=== PATIENT | female | born 1970 | race Caucasian/White ===

== ENCOUNTER → 2017-06-28 13:17 | Outpatient (CLI) | payer OTHER, SELFPAY ==
--- NOTE | 2017-06-28 13:24 | HPBD_ITS ---
STUDY: DUAL ENERGY X-RAY ABSORPTIOMETRY / DXA REASON FOR EXAM: Female, 46 years old. Early menopause. No loss of height. TECHNIQUE: Bone Mineral Density (BMD) measurements of lumbar spine and bilateral hips were obtained. COMPARISON: Comparison is made with prior study dated March 26, 2012. FINDINGS: Lumbar Spine (L1-L4): g/cm2 (0.977) / T-score (-1.7) / Z-score (-1.6) Findings are suggestive of osteopenia with a moderate fracture risk. Left Femur Total: g/cm2 (0.695) / T-score (-2.5) / Z-score (-2.2) Left Femoral Neck: g/cm2 (0.688) / T-score (-2.5) / Z-score (-1.9) Right Femur Total: g/cm2 (0.697) / T-score (-2.5) / Z-score (-2.1) Right Femoral Neck: g/cm2 (0.700) / T-score (-2.4) / Z-score (-1.8) The T-Scores on the most recent prior examination were: Lumbar Spine (L1-L4): There has been worsening of bone density since the previous examination. Left Femur Total: which represents an improvement of 2.5%. Right Femur Total: which represents an improvement of 6.7%. HPBD/Dexa Bone Density Study (HP) IMPRESSION: The patient is considered osteopenic as outlined below according to World Esteban Organization (WHO) criteria with a high fracture risk. There has been improvement of bone density since the previous examination. Reference Information: The T-score is the number of standard deviations above or below the standard which is normal for young adults at their peak bone mineral density. The World Health Organization (WHO) interprets the T-scores as follows: Above -1 Normal bone density Between -1 and -2.5 Osteopenia Equal to / or below -2.5 Osteoporosis As a practical clinical guideline, osteopenia may be graded as follows: Mild -1 through -1.5 Moderate -1.6 through -2.0 Severe -2.1 through -2.4 The Z-score is the number of standard deviations above or below age-matched controls. A Z-score of less than -1.5 would be considered abnormal. References: 1. NIH Osteoporosis and Related Bone Diseases http://www.osteo.org 2. International Society for Clinical Densitometry http://www.iscd.org 3. National Osteoporosis Foundation http://www.nof.org Electronically Signed: Leroy Aj MD at 10:50 EDT Tel [phone], Service support ,
== END ==
PROVIDERS: Visit Provider Internal Medicine
DX: M81.0 Age-related osteoporosis without current pathological fracture (principal)
CPT/HCPCS: 77080

== ENCOUNTER → 2017-11-12 10:15 | Outpatient (CLI) | payer OTHER, SELFPAY ==
[2017-11-12 12:33] LABS: Microalbumin,Random Urine 5.6 mg/L (NO RANGE EST.)
[2017-11-12 12:40] LABS: Absolute Lymphocyte Count 1.67 X10^3/ul (0.83-4.51); Absolute Neutrophil Count 1.6 X10^3/uL (2.0-7.7); Basophil# 0.03 X10^3/uL; Basophil% 0.7 % (0-1); Eosinophil# 0.15 X10^3/uL; Eosinophils% 3.7 % (0-5); Hematocrit 39.2 % (37-47); Lymphocyte # 1.67 X10^3/ul (4.0); Lymphocyte % 40.8 % (19-41); Mean Corp Hgb Conc 33.2 g/gl (32-36); Mean Corpuscular Volume 90.3 fL (81-99); Mean Platelet Vol. 11.2 fl (6.2-12.0); Monocyte# 0.59 X10^3/uL; Monocyte% 14.4 % (0-10); Neutrophil # 1.64 X10^3/uL (2.7-7.7); Neutrophil % 40.2 % (47-70); Platelet Count 286 K/mm3 (150-450); RBC Distribution Width CV 13.2 % (11.6-14.6); RBC Distribution Width SD 43.5 fl (35.1-43.9); Red Blood Count 4.34 M/mm3 (4.2-5.4); White Blood Count 4.1 K/mm3 (4.4-11.0)
[2017-11-12 12:52] LABS: POSITIVE COUNT NO; POSITIVE DIFFERENTIAL NO; POSITIVE MORPHOLOGY NO
[2017-11-12 12:58] LABS: Hemoglobin A1c 5.4 % (4.2-6.3)
[2017-11-12 13:28] LABS: BUN 9 mg/dL (7-18); Creatinine, Serum 0.71 mg/dL (0.55-1.02); Glucose 94 mg/dL (74-106)
[2017-11-12 13:29] LABS: AST(SGOT) 17 U/L (15-37); Alanine Aminotransfer ALT/SGPT 23 U/L (13-56); Albumin, Serum 3.6 g/dL (3.2-5.0); Alkaline Phosphatase 106 U/L (45-117); Anion Gap 9 (5-15); BUN/Creat Ratio 12.6 RATIO (10-20); Calcium,Total 8.8 mg/dL (8.5-10.1); Chloride 105 mmol/L (98-107); Cholesterol 230 mg/dL (200); EST Glomerular Filtration Rate 94 mL/min (>60); Est Glom Filt Rate - Afr Amer 114 mL/min (>60); Globulin 3.6 g/dL (2.2-4.2); High Density Lipoprotein 85 mg/dL; Potassium 4.1 mmol/L (3.5-5.1); Protein, Total 7.2 g/dL (6.4-8.2); Sodium Level 142 mmol/L (136-145); Thyroid Stim Hormone (TSH) 0.89 uIU/mL (0.358-3.74); Triglycerides 100 mg/dL; Very Low Density Lipoprotein 20 mg/dL (5-40)
[2017-11-14 09:43] LABS: Lipoprotein A <10 nmol/L (<75)
== END ==
PROVIDERS: Family Provider Internal Medicine; PCP Internal Medicine; Visit Provider Internal Medicine
DX: E78.4 Other hyperlipidemia (principal); R73.01 Impaired fasting glucose
CPT/HCPCS: 36415; 80053; 80061; 82043; 82570; 83036; 83695; 84443; 85025

== ENCOUNTER 2018-02-22 08:06 | Inpatient (IN) | payer OTHER, SELFPAY ==
[2018-02-22] VITALS (13 sets, daily range): BP systolic 98–138; BP diastolic 53–81; PULSE 60–106; RESP 12–19; TEMP 36.2–36.7; O2SAT 95–99; BMI 28.9; BMI 28.3
--- NOTE | 2018-02-22 08:24 | RAD_ITS ---
STUDY: X-RAY CHEST REASON FOR EXAM: Female, 47 years old. Left-sided chest pain. TECHNIQUE: PA and lateral views of the chest. COMPARISON: None. FINDINGS: EKG electrodes are seen. The lungs are clear and expanded. There is no demonstrated pleural abnormality. Normal size heart. Normal mediastinum and mary grace. Normal visualized pulmonary arteries. Normal visualized aortic arch and descending thoracic aorta. Normal visualized thoracic spine. Normal visualized ribs, clavicles, and shoulders. There is no demonstrated abnormality of the visualized soft tissue structures of the upper abdomen. RAD/Chest PA and Lateral IMPRESSION: Normal x-ray examination of the chest. Electronically Signed: Leroy Aj MD at 9:14 EST Tel [phone], Service support ,
[2018-02-22 08:54] LABS: Erythrocyte Sedimentation Rate 10 mm/hr (0-20)
[2018-02-22 09:02] LABS: Absolute Lymphocyte Count 1.94 X10^3/ul (0.83-4.51); Absolute Neutrophil Count 2.7 X10^3/uL (2.0-7.7); Basophil# 0.06 X10^3/uL; Basophil% 1.1 % (0-1); Eosinophils% 1.9 % (0-5); Hematocrit 43.7 % (37-47); Hemoglobin 14.7 g/dl (12.0-15.0); Lymphocyte # 1.94 X10^3/ul (4.0); Lymphocyte % 36.5 % (19-41); Mean Corp Hgb Conc 33.6 g/gl (32-36); Mean Corpuscular Hgb 30.1 pg (27.0-32.0); Mean Corpuscular Volume 89.5 fL (81-99); Mean Platelet Vol. 11.4 fl (6.2-12.0); Monocyte# 0.49 X10^3/uL; Monocyte% 9.2 % (0-10); Neutrophil # 2.71 X10^3/uL (2.7-7.7); Neutrophil % 51.1 % (47-70); POSITIVE COUNT NO; POSITIVE DIFFERENTIAL NO; POSITIVE MORPHOLOGY NO; Platelet Count 308 K/mm3 (150-450); RBC Distribution Width CV 12.8 % (11.6-14.6); RBC Distribution Width SD 41.6 fl (35.1-43.9); Red Blood Count 4.88 M/mm3 (4.2-5.4); White Blood Count 5.3 K/mm3 (4.4-11.0)
--- NOTE | 2018-02-22 09:23 | ECHOD_ITS ---
Reason For Study: Chest pain Procedure This was a 2D Doppler, Color Flow transthoracic echocardiogram. The study was technically difficult. Pt. scanned sitting up due to chest pain. Exam performed portable in ED. Left Ventricle Normal LV size. Left ventricular systolic function is normal. The estimated ejection fraction is 65 %. Normal diastology for age. No regional wall motion abnormalities noted. Right Ventricle Normal RV size. Normal systolic function. Atria Normal left atrium. Normal right atrium. No doppler evidence for ASD. Mitral Valve There is no mitral annular calcification. Normal mitral valve. Tricuspid Valve Normal tricuspid valve. Trivial tricuspid valve insufficiency. Unable to estimate RV systolic pressure/pulmonary artery pressure due to technically difficult study. Aortic Valve The aortic valve is not well visualized. Pulmonic Valve The pulmonic valve is not well visualized. Great Vessels Normal sized aortic root. Pericardium/Pleural No pericardial effusion. MMode/2D Measurements & Calculations LVIDd: 3.8 cm IVSd: 0.72 cm Ao root diam: 2.9 cm LVIDs: 2.3 cm LVPWd: 0.79 cm FS: 38.9 % LAV(MOD-bp): 18.0 ml LA A4 area: 10.0 cm2 LA dimension(2D): 1.9 cm LAV(MOD-bp) Indexed: 10.4 ml/m2 LAV(MOD-sp2): 16.0 ml LAV(MOD-sp4): 19.8 ml RA A4 area: 9.3 cm2 Doppler Measurements & Calculations MV E max luke: 81.5 cm/sec Lat Peak E' Luke: 9.8 cm/sec Med Peak E' Luke: 10.7 cm/sec MV A max luke: 55.1 cm/sec E/E' lat: 8.3 E/E' med: 7.6 MV E/A: 1.5 Ao V2 max: 133.7 cm/sec LV V1 max: 116.6 cm/sec PA V2 max: 95.3 cm/sec Ao max P.2 mmHg LV V1 max P.4 mmHg Interpretation Summary The study was technically difficult. Left ventricular systolic function is normal. The estimated ejection fraction is 65 %. Trivial tricuspid valve insufficiency. Unable to estimate RV systolic pressure/pulmonary artery pressure due to technically difficult study. Normal diastology for age. Ordering Physician: Garett Anderson Performed By: Virginia Galeano RDCS
--- NOTE | 2018-02-22 11:01 | ED.RN ---
Dr. Lomas at bedside.
--- NOTE | 2018-02-22 12:20 | HP.PCM_ITS ---
Problem List (1) Chest pain Status: Acute History of Present Illness Date of Admission: 02/22/18 Chief Complaint: chest pain The patient is a 47 year old F with a history of endometriosis s/p hysterectomy. SHe was admitted through the ED on 02/22/18 with a complaint of chest pain, which was rated ~ 6/10, sharp, retrosternal, aggravated by lying down and relieved by sitting up. She had associated pleuritic chest pain, but denied any SOB, fever, chills, palpitations, abdominal pain, diarrhea or vomiting. Review of systems was otherwise negative. She contracted the flu ~ 3 weeks ago which has since resolved. She currently doesnt have any URTI symptoms.IN the Ed, her vitals were stable. Initial troponin was neative, and CXR showed no acute cardiopulmonary process. EKG showed NSR with possible left atrial enlargement and nonspecifit T wave changes. She had a stat echocardiogram done in Ed which showed no evidence of pericardial fluid. She is being admitted to be managed for pericarditis. [] Past Medical History Allergies meperidine [From Demerol] Allergy (Verified 02/22/18 08:06) Vomiting Home Medications: Ambulatory Orders Medication Instructions Recorded cholecalciferol (vitamin D3) 1,000 1,000 unit PO DAILY 02/04/18 unit capsule estradiol 4 mcg vaginal insert 0.5 mcg TRANSDERM. 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 Lives: With Family Smoking Status: Never smoker Alcohol: Occasional - *Family History Maternal Family History: Family History (Last Updated 02/04/18 @ 14:00 by Sylvia Yen) Other Diabetes Hypertension Leukemia History Items: Diabetes, Heart Disease, Hypertension Paternal Family History: Family History (Last Updated 02/04/18 @ 14:00 by Sylvia Yen) Other Diabetes Hypertension Leukemia History Items: Diabetes, Heart Disease, Hypertension Review of Systems Constitutional: Denies: Chills, Fever, Malaise, Weakness, Weight Change Eyes: Denies: Blurred vision HEENT: Denies: Head Aches, Sinus Congestion, Sinus Drainage Cardiovascular: Reports: Chest Pain. Denies: Chest Pressure, Chest Tightness, Edema, Heaviness, Orthopnea, Palpitations, Paroxysmal Noc. Dyspnea, Syncope Respiratory: Reports: Pleuritic Pain. Denies: Cough, Hemoptysis, Shortness of Breath, Shortness of breath upon exertion, Sputum production, Wheezing Gastrointestinal: Denies: Abdominal Pain, Nausea, Vomiting Genitourinary: Denies: Dysuria Musculoskeletal: Denies: Joint Pain, Joint Tenderness Skin: Denies: Rash, Wounds Neurological: Denies: Numbness, Tingling, Focal weakness Psychiatric: Denies: Anxiety, Depression, Homicidal Ideations, Suicidal Ideations Hematologic/ Lymphatic: Denies: Easy Bruising, Easy Bleeding VTE Information - Inpt Only VTE Present on Admission: No VTE Pharm Prophylaxis ordered?: Yes - Physical Exam General: Alert, Oriented x3, Cooperative, - - looks uncomfortable HEENT: Atraumatic, PERRLA, EOMI, Normocephalic Oral: Moist Mucosa Neck: Supple, No JVD, Negative Carotid Bruits Lungs: Clear to auscultation, Normal air movement, No rhonchi, No wheeze, No rales Cardiovascular: Regular rate, Regular Rhythm, Normal S1, Normal S2, No murmurs Abdomen: Bowel Sounds Present, Soft, Non Tender Extremities: No clubbing, No cyanosis, No edema, Capillary Refill Less than 3 Seconds Skin: No rashes, No breakdown Musculoskeletal: No Tenderness to Palpation of Joints or Extremities Lymphatic: No Cervical, Supraclavicular, or Inguinal Adenopathy Neurological: Cranial nerves II-XII grossly intact Psych/Mental Status: Normal Affect, Appropriate, Alert and oriented to time, place, person, mood and affect Vital Signs Temp Pulse Resp BP Pulse Ox 97.1 F L 72 19 H 104/61 97 02/22/18 08:07 02/22/18 10:06 02/22/18 10:06 02/22/18 10:06 02/22/18 10:06 Oxygen Delivery Method Room Air Weight: 158 lb 4.67 oz Body Mass Index (BMI) 28.9 Laboratory Tests Past 24 Hrs 02/22/18 02/22/18 08:35 08:35 WBC 5.3 RBC 4.88 Hgb 14.7 Hct 43.7 MCV 89.5 MCH 30.1 MCHC 33.6 RDW 12.8 RDW Differential 41.6 Plt Count 308 MPV 11.4 Immature Gran % (Auto) 0.200 Neut % (Auto) 51.1 Lymph % (Auto) 36.5 [place] % (Auto) 9.2 Eos % (Auto) 1.9 Baso % (Auto) 1.1 H Absolute Neuts (auto) 2.7 Absolute Lymphs (auto) 1.94 Total Counted Not Reportable ESR 10 Troponin I < 0.015 Diagnostic Data Chest X-Ray 02/22/18 08:24 IMPRESSION: Normal x-ray examination of the chest. Electronically Signed: Leroy Aj MD at 9:14 EST Tel [phone], Service support , Assessment/Plan All Active Problems (Last Reviewed 02/04/18 @ 14:00 by Sylvia Yen) Chest pain (Acute) Influenza A (Acute) 47 y/o female admitted with a complaint of chest pain after she had a recent flu infection 1. Acute pericarditis due to influenza infection * chest pain rated 6-10, sharp, retrosternal, aggravated by lying down and taking deep breaths. relieved by sitting up * EKG not very classic of pericarditis, with no diffuse ST segment elevation * however, clinical picture is classic for pericarditis * admit to PCU with telemetry * 2D echo: Left ventricular systolic function is normal. The estimated ejection fraction is 65 %.Trivial tricuspid valve insufficiency. Unable to estimate RV systolic pressure/pulmonary artery pressure due to technically difficult study. Normal diastology for age. * initial troponin negative; will cycle * start high dose ibuprofen * 2. Endometriosis s/p hysterectomy * on estrogen patch. * 3. Vitamin D deficiency: on oral vitamin D supplementation DVT prophylaxis: heparin GI prophylaxis: famotidine. Code Visit Inpatient E&M: 90549 Init Hosp L3
--- NOTE | 2018-02-22 12:21 | ED.DCSUM_ITS ---
- ER Visit Summary Date of Service: 02/22/18 Chief Complaint: Left-sided chest pain that is positional and pleuritic. History of Present Illness: The patient is a 47 F who was diagnosed with influenza a February 04. She presents with chest pain that has a pleuritic and positional component since Sunday. She reports improvement leaning forward and significant pain lying flat on her back. She denies fever, chills or night sweats. She denies orthopnea or PND. She does complain of mild shortness of b reath and mild dyspnea with exertion. She denies ocular, visual or auditory symptoms. She denies trouble with speech or swallowing. She denies cough or sputum production. She denies nausea, vomiting or diarrhea. She denies dysuria, frequency, urgency or hematuria. She denies leg pain, swelling or discoloration. She denies history of PE or DVT. Please read written note for complete detail Physical Examination: Vital signs noted. She appears uncomfortable. Head is atraumatic normocephalic. Pupils are equal round reactive. Extraocular muscles are intact. TMs are pearly white with landmarks noted. Nares patent with no drainage. Posterior pharynx without erythema or exudate. Uvula is midline. There is no dysphonia or dysphasia. Trachea is midline. There is no stridor with auscultation of the neck. Heart is regular without murmur, gallop or rub. S1 and S2 are normal. Lungs are clear to auscultation with good movement of air bilaterally. Abdomen soft nontender. There is no asymmetry, swelling, discoloration, leg vein distention, palpable cords or tenderness along the distribution of the deep venous system. Neuro exam is nonfocal. Test Results: EKG sinus rhythm rate of [address]-T wave changes and unchanged compared to EKG from 9 years ago. DC interval normal. QRS duration normal. QT interval is prolonged. [place] is normal. CBC unremarkable. Troponin normal. ESR 10. Transthoracic echo was obtained and revealed no effusion. Left ejection fraction normal. Emergency Department Course and Treatment: Workup for pericarditis, pneumonia, myocarditis. Consulted Dr. Lomas. Dr. Lomas requested admission for pain management. He requested 30 Rust grams Toradol in the emergency department and for the hospital to start indomethacin and colchicine on the unit. Treatment Plan: Anti-inflammatory and colchicine Disposition: Medical surge unit telemetry Impression: Acute pericarditis Recent diagnosis of influenza A This note was generated with [employer] dictation software. It may contain incorrect words, spelling, and punctuation that were not noted in review of the chart prior to signing ED Disposition - Plan for ED Patient: Chief Complaint: Chest Other Referrals: Renu Mejia DO [Primary Care Provider] -
[2018-02-22] MEDS: Ketorolac 30 MG/ML Syringe IV (13:00)
--- NOTE | 2018-02-22 13:29 | EKG12_ITS ---
Test Reason : CP Blood Pressure : / mmHG Vent. Rate : 065 BPM Atrial Rate : 065 BPM P-R Int : 114 ms QRS Dur : 092 ms QT Int : 424 ms P-R-T Axes : 062 070 045 degrees QTc Int : 440 ms Normal sinus rhythm Nonspecific ST abnormality Abnormal ECG When compared with ECG of 11-JAN-2009 10:47, No significant change was found Confirmed by ANTONIO KERR, JUDIT ([id number]), film editor OZZIE HESS ([id number]) on 02/27/2018 11:35:22 AM Referred By: ARNOL Confirmed By:JUDIT ALVAREZ MD
[2018-02-22] MEDS: Ibuprofen 600 MG Tablet PO ×2 (13:59→22:01)
[2018-02-22] MEDS: Famotidine 20 MG Tablet PO ×2 (13:59→22:02)
--- NOTE | 2018-02-22 20:59 | PCM.CONS.C ---
Problem List (1) Acute pericarditis Status: Acute (2) Influenza A Status: Resolved Reason for Consult Date of Consultation: 02/22/18 History of Present Illness: The patient is a 47 year [id number] white female with no past cardiovascular history who was recently diagnosed with influenza A virus, which she states she has recovered from other than a residual cough, who now presents with the onset of chest discomfort. She states that she recently noted the onset of chest discomfort. It waxed and waned. However it progressed to the point, despite her one-time use of nonsteroidal anti-inflammatory therapy with ibuprofen, where she could not lie down comfortably and had to sit up and lean forward to gain symptomatic improvement. She also noted it was worse with cough and/or deep inspiration. She did not necessarily have associated fever, chills, nausea, emesis, or diaphoresis. There was no report of orthopnea, PND, peripheral pitting edema, near syncope or syncope. She presented to the [facility] ED for evaluation. Her evaluation included cardiac enzymes which were negative. An ECG demonstrated sinus rhythm with subtle nonspecific ST segment abnormality. A chest x-ray demonstrated no acute cardiopulmonary disease process. An ESR level was reported as negative. She had a transthoracic echocardiogram performed in the [facility] emergency department. Her left ventricle was thought to be normal with an LVEF of 65% with trivial TR. A pericardial effusion was not appreciated. She was subsequently given the diagnosis of acute pericarditis. She was treated with IV Toradol 30 mg x1. She was subsequently given additional nonsteroidal anti-inflammatory therapy, PPI therapy, and initiated on colchicine therapy. At the present time she states she is somewhat symptomatically improved. She feels that she can rest somewhat more comfortably but still not be totally comfortable in a supine position. A follow-up ECG was obtained. She remained in sinus rhythm. Her previous subtle ST segment abnormality appeared to be a less prominent. [] Past Medical History Allergies/Adverse Reactions: Allergies meperidine [From Demerol] Adverse Reaction (Verified 02/22/18 13:20) Vomiting Home Medications: Ambulatory Orders Medication Instructions Recorded cholecalciferol (vitamin D3) 1,000 1,000 unit PO DAILY 02/04/18 unit capsule estradiol 4 mcg vaginal insert 0.5 mcg TRANSDERM. 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 - *Family History Maternal Family History: Family History (Last Updated 02/04/18 @ 14:00 by Sylvia Yen) Other Diabetes Hypertension Leukemia History Items: Diabetes, Heart Disease, Hypertension Paternal Family History: Family History (Last Updated 02/04/18 @ 14:00 by Sylvia Yen) Other Diabetes Hypertension Leukemia History Items: Diabetes, Heart Disease, Hypertension Lives: With Family Smoking Status: Never smoker Alcohol: Occasional Drugs: None Review of Systems - Review of Systems General: Denies: Fever, Night Sweats, Fatigue Cardiovascular: Reports: Chest Discomfort, Chest Discomfort at Rest. Denies: Shortness of Breath, Orthopnea, PND, Peripheral Edema, Palpitations, Lightheadedness, Dizziness, Near Syncope, Syncope Respiratory: Reports: Cough, Pleurtic Chest Pain. Denies: Sputum Production, Hemoptysis Gastrointestinal: Denies: Hematemesis, Hematochezia, Melena Genitourinary: Denies: Dysuria, Hematuria Skin: Denies: Rash Subjectve: Is a 47-year-old white female who appeared to be uncomfortable, sitting up, leaning forward, to gain symptomatic improvement. Objective: Vital Signs Temp Pulse Resp BP Pulse Ox 98.1 F 73 16 126/81 H 97 02/22/18 17:38 02/22/18 19:02 02/22/18 17:38 02/22/18 17:38 02/22/18 17:38 Oxygen Delivery Method Room Air Weight: 154 lb 8.705 oz Body Mass Index (BMI) 28.3 Intake and Output for Last 24 Hours 02/20/18 02/21/18 02/22/18 23:59 23:59 23:59 Intake Total 240 / 240 Balance 240 / 240 General: Awake, Alert, Oriented x 3, Cooperative, No Acute Distress HEENT: Atraumatic, Normocephalic, Sclera Non Icteric Oral: Moist Mucosa Neck: Supple, Good ROM, No JVD Lungs: Clear to auscultation Cardiovascular: Regular Rhythm, Normal S1, Normal S2 Vascular: No Carotid Bruits Abdomen: Bowel Sounds Present, Soft, Non Tender Extremities: No Cyanosis, No Clubbing, No edema Neurological: No Focal Motor or Sensory Deficit Psych/Mental Status: Appropriate, Normal Affect 02/22/18 08:35: WBC 5.3, RBC 4.88, Hgb 14.7, Hct 43.7, MCV 89.5, MCH 30.1, MCHC 33.6, RDW 12.8, RDW Differential 41.6, Plt Count 308, MPV 11.4, Immature Gran % (Auto) 0.200, Neut % (Auto) 51.1, Lymph % (Auto) 36.5, [place] % (Auto) 9.2, Eos % (Auto) 1.9, Baso % (Auto) 1.1 H, Absolute Neuts (auto) 2.7, Total Counted Not Reportable 02/22/18 08:35: Troponin I < 0.015 02/22/18 13:35: Troponin I < 0.015 02/22/18 15:55: Troponin I < 0.015 Rhythm: Sinus rhythm EKG: As noted above ECHO: As noted above CXR: As noted above Assessment/Plan 1. Acute pericarditis The patient presents with a history compatible with acute pericarditis. Her examination did not demonstrate, at this point in time, a pericardial friction rub. Her ECG demonstrated subtle nonspecific ST segment abnormality. Her echocardiogram demonstrated no obvious pericardial effusion. She is now been treated with IV corticosteroids. She has had some improvement in her symptoms allowing her to rest somewhat more comfortably. She is continuing with oral corticosteroids at this time as well as a PPI agent and colchicine therapy. She will continue to be monitored. Hopefully her oral agents will be effective with respect to providing her symptomatic improvement. If they do and she remains otherwise stable without other obvious acute or adverse events warranting further evaluation and care then hopefully she will be able to be released home, potentially tomorrow, for continued outpatient cardiovascular follow-up. 2. Influenza A She has had influenza A recently. She states she has recuperated from this. However this could be the precursor for her acute pericarditis. Comment: The patient's case has been discussed and reviewed with the patient and Dr. Anderson the [facility] emergency department staff. The [facility] hospitalist staff assistance in the patient's evaluation and care as most appreciated. This note was generated with [employer] software. It may contain incorrect words, spelling, and punctuation that were not noted in checking the note before signing.
--- NOTE | 2018-02-22 21:04 | CON.PCM_ITS ---
Problem List (1) Acute pericarditis Status: Acute (2) Influenza A Status: Resolved Reason for Consult Date of Consultation: 02/22/18 History of Present Illness: The patient is a 47 year [id number] white female with no past cardiovascular history who was recently diagnosed with influenza A virus, which she states she has recovered from other than a residual cough, who now presents with the onset of chest discomfort. She states that she recently noted the onset of chest discomfort. It waxed and waned. However it progressed to the point, despite her one-time use of nonsteroidal anti-inflammatory therapy with ibuprofen, where she could not lie down comfortably and had to sit up and lean forward to gain symptomatic improvement. She also noted it was worse with cough and/or deep inspiration. She did not necessarily have associated fever, chills, nausea, emesis, or diaphoresis. There was no report of orthopnea, PND, peripheral pitting edema, near syncope or syncope. She presented to the [facility] ED for evaluation. Her evaluation included cardiac enzymes which were negative. An ECG demonstrated sinus rhythm with subtle nonspecific ST segment abnormality. A chest x-ray dem onstrated no acute cardiopulmonary disease process. An ESR level was reported as negative. She had a transthoracic echocardiogram performed in the [facility] emergency department. Her left ventricle was thought to be normal with an LVEF of 65% with trivial TR. A pericardial effusion was not appreciated. She was subsequently given the diagnosis of acute pericarditis. She was treated with IV Toradol 30 mg x1. She was subsequently given additional nonsteroidal anti-inflammatory therapy, PPI therapy, and initiated on colchicine therapy. At the present time she states she is somewhat symptomatically improved. She feels that she can rest somewhat more comfortably but still not be totally comfortable in a supine position. A follow-up ECG was obtained. She remained in sinus rhythm. Her previous subtle ST segment abnormality appeared to be a less prominent. [] Past Medical History Allergies/Adverse Reactions: Allergies meperidine [From Demerol] Adverse Reaction (Verified 02/22/18 13:20) Vomiting Home Medications: Ambulatory Orders Medication Instructions Recorded cholecalciferol (vitamin D3) 1,000 1,000 unit PO DAILY 02/04/18 unit capsule estradiol 4 mcg vaginal insert 0.5 mcg TRANSDERM. QWEEK 02/04/18 [employer] History: endometriosis - *Family History Maternal Family History: Family History (Last Updated 10/22/18 @ 14:00 by Sylvia Yen) Other Diabetes Hypertension Leukemia History Items: Diabetes, Heart Disease, Hypertension Paternal Family History: Family History (Last Updated 02/04/18 @ 14:00 by Sylvia Yen) Other Diabetes Hypertension Leukemia History Items: Diabetes, Heart Disease, Hypertension Lives: With Family Smoking Status: Never smoker Alcohol: Occasional Drugs: None Review of Systems - Review of Systems General: Denies: Fever, Night Sweats, Fatigue Cardiovascular: Reports: Chest Discomfort, Chest Discomfort at Rest. Denies: Shortness of Breath, Orthopnea, PND, Peripheral Edema, Palpitations, Lightheadedness, Dizziness, Near Syncope, Syncope Respiratory: Reports: Cough, Pleurtic Chest Pain. Denies: Sputum Production, Hemoptysis Gastrointestinal: Denies: Hematemesis, Hematochezia, Melena Genitourinary: Denies: Dysuria, Hematuria Skin: Denies: Rash Subjectve: Is a 47-year-old white female who appeared to be uncomfortable, sitting up, leaning forward, to gain symptomatic improvement. Objective: Vital Signs Temp Pulse Resp BP Pulse Ox 98.1 F 73 16 126/81 H 97 02/22/18 17:38 02/22/18 19:02 02/22/18 17:38 02/22/18 17:38 02/22/18 17:38 Oxygen Delivery Method Room Air Weight: 154 lb 8.705 oz Body Mass Index (BMI) 28.3 Intake and Output for Last 24 Hours 02/20/18 02/21/18 02/22/18 23:59 23:59 23:59 Intake Total 240 / 240 Balance 240 / 240 General: Awake, Alert, Oriented x 3, Cooperative, No Acute Distress HEENT: Atraumatic, Normocephalic, Sclera Non Icteric Oral: Moist Mucosa Neck: Supple, Good ROM, No JVD Lungs: Clear to auscultation Cardiovascular: Regular Rhythm, Normal S1, Normal S2 Vascular: No Carotid Bruits Abdomen: Bowel Sounds Present, Soft, Non Tender Extremities: No Cyanosis, No Clubbing, No edema Neurological: No Focal Motor or Sensory Deficit Psych/Mental Status: Appropriate, Normal Affect 02/22/18 08:35: WBC 5.3, RBC 4.88, Hgb 14.7, Hct 43.7, MCV 89.5, MCH 30.1, MCHC 33.6, RDW 12.8, RDW Differential 41.6, Plt Count 308, MPV 11.4, Immature Gran % (Auto) 0.200, Neut % (Auto) 51.1, Lymph % (Auto) 36.5, [place] % (Auto) 9.2, Eos % (Auto) 1.9, Baso % (Auto) 1.1 H, Absolute Neuts (auto) 2.7, Total Counted Not Reportable 02/22/18 08:35: Troponin I < 0.015 02/22/18 13:35: Troponin I < 0.015 02/22/18 15:55: Troponin I < 0.015 Rhythm: Sinus rhythm EKG: As noted above ECHO: As noted above CXR: As noted above Assessment/Plan 1. Acute pericarditis The patient presents with a history compatible with acute pericarditis. Her examination did not demonstrate, at this point in time, a pericardial friction rub. Her ECG demonstrated subtle nonspecific ST segment abnormality. Her echocardiogram demonstrated no obvious pericardial effusion. She is now been treated with IV corticosteroids. She has had some improvement in her symptoms allowing her to rest somewhat more comfortably. She is continuing with oral corticosteroids at this time as well as a PPI agent and colchicine therapy. She will continue to be monitored. Hopefully her oral agents will be effective with respect to providing her symptomatic improvement. If they do and she remains otherwise stable without other obvious acute or adverse events warranting further evaluation and care then hopefully she will be able to be released home, potentially tomorrow, for continued outpatient cardiovascular follow-up. 2. Influenza A She has had influenza A recently. She states she has recuperated from this. However this could be the precursor for her acute pericarditis. Comment: The patient's case has been discussed and reviewed with the patient and Dr. Anderson the [facility] emergency department staff. The [facility] hospitalist staff assistance in the patient's evaluation and care as most appreciated. This note was generated with CMGEation software. It may contain incorrect words, spelling, and punctuation that were not noted in checking the note before signing.
[2018-02-23] VITALS (7 sets, daily range): BP systolic 100–108; BP diastolic 51–53; PULSE 64–84; RESP 16; TEMP 36.6; O2SAT 95–97
[2018-02-23] MEDS: Ibuprofen 600 MG Tablet PO (05:34)
--- NOTE | 2018-02-23 06:00 | EKG12_ITS ---
Test Reason : AM EKG Blood Pressure : / mmHG Vent. Rate : 062 BPM Atrial Rate : 062 BPM P-R Int : 124 ms QRS Dur : 088 ms QT Int : 422 ms P-R-T Axes : 063 073 050 degrees QTc Int : 428 ms Normal sinus rhythm Normal ECG When compared with ECG of 22-FEB-2018 13:21, MANUAL COMPARISON REQUIRED, DATA IS UNCONFIRMED Confirmed by ANTONIO KERR, JUDIT ([id number]), editor farm journal OZZIE HESS ([id number]) on 02/27/2018 11:33:52 AM Referred By: BOYD Confirmed By:JUDIT ALVAREZ MD
[2018-02-23 06:50] LABS: Absolute Lymphocyte Count 2.07 X10^3/ul (0.83-4.51); Basophil# 0.07 X10^3/uL; Basophil% 1.4 % (0-1); Eosinophil# 0.17 X10^3/uL; Eosinophils% 3.4 % (0-5); Hematocrit 39.4 % (37-47); Hemoglobin 12.9 g/dl (12.0-15.0); Lymphocyte # 2.07 X10^3/ul (4.0); Lymphocyte % 41.8 % (19-41); Mean Corp Hgb Conc 32.7 g/gl (32-36); Mean Corpuscular Hgb 29.5 pg (27.0-32.0); Mean Platelet Vol. 11.4 fl (6.2-12.0); Monocyte# 0.62 X10^3/uL; Monocyte% 12.5 % (0-10); Neutrophil # 2.01 X10^3/uL (2.7-7.7); Neutrophil % 40.7 % (47-70); Platelet Count 260 K/mm3 (150-450); RBC Distribution Width CV 12.7 % (11.6-14.6); RBC Distribution Width SD 41.4 fl (35.1-43.9); Red Blood Count 4.38 M/mm3 (4.2-5.4)
[2018-02-23 06:57] LABS: POSITIVE COUNT NO; POSITIVE DIFFERENTIAL NO; POSITIVE MORPHOLOGY NO
[2018-02-23 07:17] LABS: Anion Gap 7 (5-15); BUN 11 mg/dL (7-18); BUN/Creat Ratio 15.8 RATIO (10-20); Calcium,Total 8.2 mg/dL (8.5-10.1); Chloride 108 mmol/L (98-107); EST Glomerular Filtration Rate 96 mL/min (>60); Est Glom Filt Rate - Afr Amer 116 mL/min (>60); Estimated Creatinine Clearance 79.42 ml/min; Glucose 91 mg/dL (74-106); Potassium 3.9 mmol/L (3.5-5.1); Sodium Level 141 mmol/L (136-145)
[2018-02-23] MEDS: Famotidine 20 MG Tablet PO (09:35)
--- NOTE | 2018-02-23 10:20 | PCM.PN.CARD ---
Subjectve: Patient seen and examined. Telemetry showed normal sinus rhythm. Patient still has some pleuritic type chest pain with deep inspiration however she reports it is markedly improved with NSAID therapy. No significant diarrhea overnight. Tolerating NSAID and colchicine well. Cardial rub or pleural rub noted. No history of lupus or connective tissue disease or autoimmune diseases in the patient's family to her knowledge. Objective: Vital Signs Temp Pulse Resp BP Pulse Ox 97.8 F 73 16 100/53 L 97 02/23/18 09:33 02/23/18 09:33 02/23/18 09:33 02/23/18 09:33 02/23/18 09:33 Oxygen Delivery Method Room Air Weight: 154 lb 8.705 oz Body Mass Index (BMI) 28.3 Intake and Output for Last 24 Hours 02/21/18 02/22/18 02/23/18 23:59 23:59 23:59 Intake Total 240 / 240 560 / 560 Balance 240 / 240 560 / 560 General: Awake, Alert, Oriented x 3 HEENT: PERRL, EOMI, Sclera Non Icteric Neck: Supple, Good ROM, No Lymph Node Enlargement Lungs: Clear to auscultation Cardiovascular: Regular Rhythm, Normal S1, Normal S2, No Murmurs, No Rubs, No Gallops Vascular: No Carotid Bruits, Normal Femoral Pulses, Normal Radial Pulses, Normal Dorsalis Pedal Pulse, Normal Posterior Tibial Pulses Abdomen: Bowel Sounds Present, Soft, Non Tender, No HSM, No Organomegaly Extremities: No Cyanosis, No Clubbing, No edema Neurological: No Focal Motor or Sensory Deficit 02/22/18 13:35: Troponin I < 0.015 02/22/18 15:55: Troponin I < 0.015 02/23/18 06:12: WBC 5.0, RBC 4.38, Hgb 12.9, Hct 39.4, MCV 90.0, MCH 29.5, MCHC 32.7, RDW 12.7, RDW Differential 41.4, Plt Count 260, MPV 11.4, Immature Gran % (Auto) 0.200, Neut % (Auto) 40.7 L, Lymph % (Auto) 41.8 H, [place] % (Auto) 12.5 H, Eos % (Auto) 3.4, Baso % (Auto) 1.4 H, Absolute Neuts (auto) 2.0, Total Counted Not Reportable 02/23/18 06:12: Sodium 141, Potassium 3.9, Chloride 108 H, Carbon Dioxide 26.0, Anion Gap 7, BUN 11, Creatinine 0.70, Est GFR (MDRD) Af Amer 116, Est GFR (MDRD) Non-Af 96, BUN/Creatinine Ratio 15.8, Glucose 91, Calcium 8.2 L Rhythm: EKG: ECHO: Stress Test: Cardiac Cath: PCI: CT Surgery: Holter monitor: EPS: PPM: CXR: Chest CT Scan: Medical Necessity - Tobacco Use Smoking Status: Never smoker Assessment/Plan 1. Acute pericarditis: The patient has never had an episode of pericarditis before, and has no knowledge of autoimmune disorders or lupus in either herself or her family. She is responding well to ibuprofen and colchicine. Recommend continuing ibuprofen at 600 mg every 8 hours and colchicine 0.6 mg p.o. twice daily until her pain is completely resolved. Recommend continuing this therapy for at least 2 weeks time until it is completely resolved. She will follow-up with Dr. Peng cyr going forward. Patient may be discharged home if clinically stable. Should the patient have recurrent pericarditis she may require further evaluation for autoimmune diseases such as lupus, or Sjogren's. 2. Thank you very much for the opportunity to participate in the cardiac care of your patient. Code Visit Inpatient E&M: 04874 Subs Hosp L2
--- NOTE | 2018-02-23 11:11 | DCINST_ITS ---
- Discharge Diagnoses Current Active Problems: Current Active and Chronic Problems (Last Reviewed 02/04/18 @ 14:00 by Sylvia Yen) Acute pericarditis (Acute) You will use the following diet at home:: Regular Your food should be the consistency of: Regular Your liquids should be the consistency of: Regular/Thin Discharge Activity: Return to Normal Activity Weight Bearing Status: Weight bearing as tolerated Call your doctor if you observe: Fever of 101 or Higher, Shortness of breath, Chest pain, Uncontrolled pain Instructions: Pericarditis Allergies/Adverse Reactions: Allergies meperidine [From Demerol] Adverse Reaction (Verified 02/22/18 13:20) Vomiting Medications to take at Discharge cholecalciferol (vitamin D3) 1,000 unit capsule 1,000 unit PO DAILY 02/04/18 estradiol 4 mcg vaginal insert 0.5 mcg TRANSDERM. QWEEK 02/04/18 Colchicine 0.6 mg PO BID #60 tablet 02/23/18 Famotidine [Pepcid] 20 mg PO BID #60 tablet 02/23/18 Ibuprofen 600 mg PO TID #90 tablet 02/23/18 The following prescriptions were given: Colchicine 0.6 mg PO BID #60 tablet Famotidine [Pepcid] 20 mg PO BID #60 tablet Ibuprofen 600 mg PO TID #90 tablet Primary Care Physician: Renu Mejia DO [Primary Care Provider] - Please follow up with your Primary Care Physician in: one week Test Results: Test results from this visit will be discussed in further detail at your follow- up appointment, if applicable. Please Follow Up With: Cody Lomas MD When: 1-2 weeks Proposed Discharge Date: 02/23/18
--- NOTE | 2018-02-23 11:13 | DS.PCM_ITS ---
Discharge Date and Diagnosis Date of Admission: 02/22/18 Date of Discharge: 02/23/18 - Primary Discharge Diagnosis Active and Suspected Problems (Last Reviewed 02/04/18 @ 14:00 by Sylvia Yen) Acute pericarditis (Acute) Hospital Course and Treatment Imaging Results: Diagnostic Data Chest X-Ray 02/22/18 08:24 IMPRESSION: Normal x-ray examination of the chest. Electronically Signed: Leroy Aj MD at 9:14 EST Tel [phone], Service support , cardiology Operations: None Procedures: 2-D Echocardiogram Summary of Care Provided: The patient is a 47 year old F with a history of endometriosis s/p hysterectomy. SHe was admitted through the ED on 02/22/18 with a complaint of chest pain, which was rated ~ 6/10, sharp, retrosternal, aggravated by lying down and relieved by sitting up. She had associated pleuritic chest pain, but denied any SOB, fever, chills, palpitations, abdominal pain, diarrhea or vomiting. Review of systems was otherwise negative. She contracted the flu ~ 3 weeks ago which has since resolved. She currently doesnt have any URTI symptoms.IN the Ed, her vitals were stable. Initial troponin was neative, and CXR showed no acute cardiopulmonary process. EKG showed NSR with possible left atrial enlargement and nonspecifit T wave changes. She had a stat echocardiogram done in Ed which showed no evidence of pericardial fluid. She was admitted to be managed for acute pericarditis. She was started on high-dose ibuprofen and colchicine. Pain subsequently improved and patient felt much better. She was discharged home on 02/23/2018 with a prescription for ibuprofen and colchicine. She is to follow-up with her primary care doctor and cardiology. Patient seen and examined prior to discharge. Chest pain improved significantly and she only had mild pleuritic chest pain with breathing. She denied any fever chills, cough, abdominal pain, diarrhea or vomiting. Review of systems otherwise negative. Labs and vitals reviewed. On examination Vital Signs Height 5 ft 2 in Weight: 154 lb 8.705 oz Weight in Pounds 154.5 lbs Pulse Ox 97 Temperature 97.8 F Pulse Rate 84 Respiratory Rate 16 Blood Pressure 100/53 Blood Pressure Position Semi-Fowlers General: Alert, Oriented x3, Cooperative,looks much more comfortable today HEENT: Atraumatic, PERRLA, EOMI, Normocephalic Oral: Moist Mucosa Neck: Supple, No JVD, Negative Carotid Bruits Lungs: Clear to auscultation, Normal air movement, No rhonchi, No wheeze, No rales Cardiovascular: Regular rate, Regular Rhythm, Normal S1, Normal S2, No murmurs Abdomen: Bowel Sounds Present, Soft, Non Tender Extremities: No clubbing, No cyanosis, No edema, Capillary Refill Less than 3 Seconds Skin: No rashes, No breakdown Musculoskeletal: No Tenderness to Palpation of Joints or Extremities Lymphatic: No Cervical, Supraclavicular, or Inguinal Adenopathy Neurological: Cranial nerves II-XII grossly intact Psych/Mental Status: Normal Affect, Appropriate, Alert and oriented to time, place, person, mood and affect Plan as stated above. - Physical Exam Vital Signs Temp Pulse Resp BP Pulse Ox 97.8 F 73 16 100/53 L 97 02/23/18 09:33 02/23/18 09:33 02/23/18 09:33 02/23/18 09:33 02/23/18 09:33 Oxygen Delivery Method Room Air Weight: 154 lb 8.705 oz Body Mass Index (BMI) 28.3 Intake and Output for Last 24 Hours 02/21/18 02/22/18 02/23/18 23:59 23:59 23:59 Intake Total 240 / 240 560 / 560 Balance 240 / 240 560 / 560 Laboratory Tests Past 24 Hrs 02/22/18 02/22/18 02/23/18 13:35 15:55 06:12 WBC 5.0 RBC 4.38 Hgb 12.9 Hct 39.4 MCV 90.0 MCH 29.5 MCHC 32.7 RDW 12.7 RDW Differential 41.4 Plt Count 260 MPV 11.4 Immature Gran % (Auto) 0.200 Neut % (Auto) 40.7 L Lymph % (Auto) 41.8 H [place] % (Auto) 12.5 H Eos % (Auto) 3.4 Baso % (Auto) 1.4 H Absolute Neuts (auto) 2.0 Absolute Lymphs (auto) 2.07 Total Counted Not Reportable Sodium Potassium Chloride Carbon Dioxide Anion Gap BUN Creatinine Estim Creat Clear Calc Est GFR (MDRD) Af Amer Est GFR (MDRD) Non-Af BUN/Creatinine Ratio Glucose Calcium Troponin I < 0.015 < 0.015 02/23/18 06:12 WBC RBC Hgb Hct MCV MCH MCHC RDW RDW Differential Plt Count MPV Immature Gran % (Auto) Neut % (Auto) Lymph % (Auto) [place] % (Auto) Eos % (Auto) Baso % (Auto) Absolute Neuts (auto) Absolute Lymphs (auto) Total Counted Sodium 141 Potassium 3.9 Chloride 108 H Carbon Dioxide 26.0 Anion Gap 7 BUN 11 Creatinine 0.70 Estim Creat Clear Calc 79.42 Est GFR (MDRD) Af Amer 116 Est GFR (MDRD) Non-Af 96 BUN/Creatinine Ratio 15.8 Glucose 91 Calcium 8.2 L Troponin I Discharge Diet: No Restrictions Discharge Activity: Return to Normal Activity Weight Bearing Status: Weight bearing as tolerated Call your doctor if you observe: Fever of 101 or Higher, Shortness of breath, Chest pain, Uncontrolled pain Home Medications: Medications to take at Discharge cholecalciferol (vitamin D3) 1,000 unit capsule 1,000 unit PO DAILY 02/04/18 estradiol 4 mcg vaginal insert 0.5 mcg TRANSDERM. QWEEK 02/04/18 Colchicine 0.6 mg PO BID #60 tab 02/23/18 Famotidine [Pepcid] 20 mg PO BID #60 tablet 02/23/18 Ibuprofen 600 mg PO TID #90 tablet 02/23/18 Following Prescrptions Were Given to Patient: Colchicine 0.6 mg PO BID #60 tab Famotidine [Pepcid] 20 mg PO BID #60 tablet Ibuprofen 600 mg PO TID #90 tablet Primary Care Physician: Renu Mejia DO [Primary Care Provider] - Please follow up with your Primary Care Physician in: one week Please Follow Up With: Cody Lomas MD When: 1-2 weeks Patient Instructions: Pericarditis Disposition: Home Minutes spent on discharge:: 38 Patient Condition:: Good Medical Necessity - Tobacco Use Smoking Status: Never smoker Meaningful Use Info Meaningful Use Diagnoses (Choose all that apply): None applicable Code Visit Inpatient E&M: 41837 Disch Hosp
== END 2018-02-23 12:28 | disposition home or self-care (01) | DRG 316 ==
LOC: ED 09:21 → PCU 12:51
PROVIDERS: Admitting Provider Student in an Organized Health Care Education/Training Program; Emergency Provider Emergency Medicine; Family Provider Internal Medicine; PCP Internal Medicine; Visit Provider Student in an Organized Health Care Education/Training Program
DX: I30.9 Acute pericarditis, unspecified (principal); E55.9 Vitamin D deficiency, unspecified; Z79.890 Hormone replacement therapy; Z90.710 Acquired absence of both cervix and uterus
CPT/HCPCS: 36415; 71046; 80048; 84484; 85025; 85652; 93005; 93306; 99283; A4216

== ENCOUNTER 2018-03-04 10:26 | Emergency (ER) | payer OTHER, SELFPAY ==
[2018-03-04 10:27] VITALS: BP 125/80; PULSE 105; RESP 28; TEMP 36.6; O2SAT 100; BMI 28.3
--- NOTE | 2018-03-04 10:36 | CT_ITS ---
STUDY: CTA CHEST REASON FOR EXAM: Female, 47 years old. Chest pain. Pericarditis. Left-sided chest pain. RADIATION DOSAGE (If Supplied By Facility): CTDIvol = ( 9.87 ) mGy, DLP = ( 334.46 ) mGycm TECHNIQUE: The examination was performed with the intravenous administration of 75 ml of Isovue 370 contrast material. Post-processing of the angiographic images was performed, with multiplanar reformation and 3D reconstruction. Individualized dose optimization techniques were used for this CT. COMPARISON: None. FINDINGS: Normal enhancement of the main pulmonary artery and right and left pulmonary arteries. Normal enhancement of the bilateral peripheral pulmonary arteries. There is no demonstrated pulmonary embolism. Normal thoracic aorta and visualized great vessels. There is no demonstrated aortic dissection. Normal heart and pericardium. Normal mediastinum. Normal hilar regions. Normal visualized trachea and bronchi. The lungs are well expanded. Elevation of the right hemidiaphragm. Normal pulmonary parenchyma. Normal pleura. Normal chest wall structures. Normal osseous structures. Normal visualized upper abdomen. CT/CTA Chest W/WO Contrast IMPRESSION: Normal CTA chest examination, without a demonstrated pulmonary embolism or arterial dissection. Electronically Signed: Leroy Aj MD at 12:32 EST Tel [phone], Service support ,
--- NOTE | 2018-03-04 10:37 | EKG12_ITS ---
Test Reason : CHEST PAIN Blood Pressure : / mmHG Vent. Rate : 083 BPM Atrial Rate : 083 BPM P-R Int : 128 ms QRS Dur : 086 ms QT Int : 364 ms P-R-T Axes : 077 084 069 degrees QTc Int : 427 ms Normal sinus rhythm Nonspecific ST abnormality Abnormal ECG Confirmed by ANTONIO KERR, JUDIT ([id number]), newspaper photo editor OZZIE HESS ([id number]) on 03/06/2018 11:14:41 AM Referred By: Miky Gibson Confirmed By:JUDIT ALVAREZ MD
--- NOTE | 2018-03-04 10:40 | RAD_ITS ---
STUDY: X-RAY CHEST REASON FOR EXAM: Female, 47 years old. Chest pain, diagnosed with pericarditis recently, improved but worse today. Shortness of breath and pain TECHNIQUE: Single AP portable view of the chest. COMPARISON: 02/22/2018. CTA chest 03/04/2018. FINDINGS: The lungs are clear and expanded. There is no demonstrated pleural abnormality. Normal size heart. Normal mediastinum and mary grace. Normal visualized pulmonary arteries. Normal visualized aortic arch and descending thoracic aorta. Normal visualized thoracic spine. Normal visualized ribs, clavicles, and shoulders. There is no demonstrated abnormality of the visualized soft tissue structures of the upper abdomen. RAD/Chest 1 View (Portable) IMPRESSION: No acute cardiopulmonary disease. No significant interval change. Electronically Signed: Gauri Brooke MD at 3:31 EST , Service support ,
--- NOTE | 2018-03-04 11:08 | ED.DCSUM_ITS ---
- ER Visit Summary Date of Service: 03/04/18 Chief Complaint: Chest pain History of Present Illness: The patient is a 47 F presents to the emergency department with worsening chest pain. Patient was actually seen and evaluated about a week ago. At that time, she was admitted for likely pericarditis. The patient underwent echocardiogram which was unremarkable. She was started on colchicine and anti-inflammatories. She states that she was doing well until about 24 hours ago. States the pain is worsened. Where before, she was able to sit up and the pain would resolve, but she states now any sort of movement hurts. She is also been more short of breath. The pain does not radiate into her neck or her arm. She denies any history of coronary vascular disease. Physical Examination: Vital signs reviewed General: Well-nourished, well-developed Head: Normocephalic, atraumatic Eyes: Pupils equal and reactive, extraocular muscles intact Neck, supple, no lymphadenopathy Heart: Regular rate and rhythm Respiratory: No distress, clear bilaterally Abdomen: Soft, nontender, nondistended, no peritoneal signs Back: Nontender Extremities: Nontender, no edema, no cords Skin: Normal color no rash Neuro: Alert and oriented, no focal or lateralizing deficits Test Results: [] Emergency Department Course and Treatment: The patient presents with worsening left-sided chest pain. She states that she is actually doing very well for the past week. The pain actually worsened over the past 24 hours. EKG was obtained which did show some inferior lateral ST depression that had mildly worsened since her prior EKG. I reviewed these with Dr. Alfred who thought that this was likely secondary to their normal progression of pericarditis. Patient's cardiac enzymes are normal. She has had constant pain for 24 hours. She has no risk factors for coronary vascular disease. I do not feel that her symptoms are consistent with acute coronary syndrome. I did obtain a CTA given her positional pain and dyspnea. This shows no pulmonary embolus. There is no dissection. There is no large pericardial effusion. On reevaluation after 2 mg of morphine, the patient is markedly improved. She declined Toradol. She was given Solu-Medrol. Patient be placed on a short burst of prednisone and analgesics. At this time, I do feel that she is safe for outpatient follow-up. Treatment Plan: [] Disposition: Discharge Impression: Chest pain with history of pericarditis This note was generated with Lolade[employer] dictation software. It may contain incorrect words, spelling, and punctuation that were not noted in review of the chart prior to signing ED Disposition - Plan for ED Patient: Chief Complaint: Chest Pain Instructions: ED Chest Pain Pericarditis Prescriptions: Hydrocodone Bitart/Apap 5-325 [Thornton 5MG-325MG] 1 tab PO Q6H PRN PRN 3 Days #10 tab PRN Reason: Pain Prednisone 10 mg PO UD #33 tab Referrals: Renu Mejia DO [Primary Care Provider] -
[2018-03-04 11:10] LABS: Absolute Lymphocyte Count 1.89 X10^3/ul (0.83-4.51); Absolute Neutrophil Count 1.7 X10^3/uL (2.0-7.7); Basophil# 0.07 X10^3/uL; Basophil% 1.6 % (0-1); Eosinophil# 0.18 X10^3/uL; Eosinophils% 4.2 % (0-5); Hematocrit 41.1 % (37-47); Hemoglobin 13.7 g/dl (12.0-15.0); Lymphocyte # 1.89 X10^3/ul (4.0); Lymphocyte % 44.5 % (19-41); Mean Corp Hgb Conc 33.3 g/gl (32-36); Mean Corpuscular Hgb 29.6 pg (27.0-32.0); Mean Corpuscular Volume 88.8 fL (81-99); Mean Platelet Vol. 11.5 fl (6.2-12.0); Monocyte# 0.39 X10^3/uL; Monocyte% 9.2 % (0-10); Neutrophil # 1.72 X10^3/uL (2.7-7.7); Neutrophil % 40.5 % (47-70); Platelet Count 251 K/mm3 (150-450); RBC Distribution Width CV 12.4 % (11.6-14.6); RBC Distribution Width SD 39.8 fl (35.1-43.9); Red Blood Count 4.63 M/mm3 (4.2-5.4); White Blood Count 4.3 K/mm3 (4.4-11.0)
[2018-03-04 11:12] LABS: POSITIVE COUNT NO; POSITIVE DIFFERENTIAL NO; POSITIVE MORPHOLOGY NO
[2018-03-04 11:13] LABS: Prothrombin Time (Protime)PT. 13.1 SECONDS (11.7-14.9)
[2018-03-04 11:14] LABS: Partial Thromboplast Time 28.6 Seconds (24.1-36.2)
[2018-03-04 11:23] LABS: Anion Gap 13 (5-15); BUN 12 mg/dL (7-18); BUN/Creat Ratio 13.3 RATIO (10-20); Calcium,Total 8.9 mg/dL (8.5-10.1); Chloride 106 mmol/L (98-107); EST Glomerular Filtration Rate 71 mL/min (>60); Est Glom Filt Rate - Afr Amer 86 mL/min (>60); Estimated Creatinine Clearance 61.77 ml/min; Glucose 95 mg/dL (74-106); Potassium 3.7 mmol/L (3.5-5.1); Sodium Level 143 mmol/L (136-145)
[2018-03-04] MEDS: 0.9% Normal Saline 1,000 ML 150 ML IV (11:51)
[2018-03-04] MEDS: Morphine 4 MG/ML Syringe 2 MG IV (11:51)
[2018-03-04] MEDS: Ondansetron 4 MG/2 ML Vial IV (11:52)
[2018-03-04 11:54] VITALS: O2SAT 100
[2018-03-04 11:57] VITALS: BP 95/71; PULSE 69; RESP 20; O2SAT 100
[2018-03-04 12:07] VITALS: BP 101/65
[2018-03-04] MEDS: Ketorolac 30 MG/ML Syringe IV (12:52)
[2018-03-04] MEDS: MethylPREDNISolone 125 MG/2 ML Vial IV (12:52)
[2018-03-04 13:05] VITALS: BP 111/76; PULSE 63; RESP 17; O2SAT 99
[2018-03-04 13:28] VITALS: BP 110/76; PULSE 74; RESP 18; O2SAT 99
[2018-03-04 16:44] LABS: Absolute Lymphocyte Count 1.92 X10^3/ul (0.83-4.51); Absolute Neutrophil Count 2.2 X10^3/uL (2.0-7.7); Basophil% 2.1 % (0-1); Eosinophil# 0.19 X10^3/uL; Hematocrit 40.4 % (37-47); Hemoglobin 13.5 g/dl (12.0-15.0); Lymphocyte # 1.92 X10^3/ul (4.0); Lymphocyte % 40.3 % (19-41); Mean Corp Hgb Conc 33.4 g/gl (32-36); Mean Corpuscular Hgb 29.8 pg (27.0-32.0); Mean Corpuscular Volume 89.2 fL (81-99); Mean Platelet Vol. 12.6 fl (6.2-12.0); Monocyte# 0.35 X10^3/uL; Monocyte% 7.4 % (0-10); Neutrophil # 2.19 X10^3/uL (2.7-7.7); Platelet Count 269 K/mm3 (150-450); RBC Distribution Width CV 12.4 % (11.6-14.6); RBC Distribution Width SD 39.9 fl (35.1-43.9); Red Blood Count 4.53 M/mm3 (4.2-5.4); White Blood Count 4.8 K/mm3 (4.4-11.0)
[2018-03-04 17:04] LABS: POSITIVE COUNT NO; POSITIVE DIFFERENTIAL NO; POSITIVE MORPHOLOGY NO
[2018-03-04 17:36] LABS: ALB/GLOB Ratio 1.2 RATIO (0.9-2.4); AST(SGOT) 51 U/L (15-37); Alanine Aminotransfer ALT/SGPT 60 U/L (13-56); Albumin, Serum 3.8 g/dL (3.2-5.0); Alkaline Phosphatase 106 U/L (45-117); Anion Gap 10 (5-15); BUN 12 mg/dL (7-18); BUN/Creat Ratio 13.9 RATIO (10-20); CRP < 2.90 mg/L (0.0-3.0); Calcium,Total 8.7 mg/dL (8.5-10.1); Chloride 106 mmol/L (98-107); Creatinine, Serum 0.86 mg/dL (0.55-1.02); EST Glomerular Filtration Rate 75 mL/min (>60); Est Glom Filt Rate - Afr Amer 91 mL/min (>60); Estimated Creatinine Clearance 64.65 ml/min; Globulin 3.2 g/dL (2.2-4.2); Glucose 118 mg/dL (74-106); Potassium 3.7 mmol/L (3.5-5.1); Sodium Level 140 mmol/L (136-145)
[2018-03-04 21:40] LABS: Erythrocyte Sedimentation Rate 7 mm/hr (0-20)
[2018-03-06 19:50] LABS: ANTINUCLEAR ANTIBODIES DIRECT Negative (Negative)
== END 2018-03-04 13:29 | disposition home or self-care (01) ==
LOC: ED 11:48
PROVIDERS: Emergency Provider Emergency Medicine; Family Provider Internal Medicine; PCP Internal Medicine; Referring Provider Emergency Medicine
DX: R07.9 Chest pain, unspecified (principal); I31.9 Disease of pericardium, unspecified
CPT/HCPCS: 36415; 71045; 71275; 80048; 80053; 84484; 85025; 85610; 85652; 85730; 86038; 86140; 93005; 96361; 96374; 96375; 99284; J7030; Q9967; A4216; J2405

== ENCOUNTER → 2018-03-05 10:54 | Outpatient (CLI) | payer OTHER, SELFPAY ==
[2018-03-04 10:27] VITALS: BMI 28.3
--- NOTE | 2018-03-05 10:58 | ECHOL_ITS ---
Reason For Study: Acute pericarditis Procedure This was a limited 2D transthoracic echocardiogram. Exam performed in department. Left Ventricle Normal LV size. Left ventricular systolic function is normal. The estimated ejection fraction is 60 %. No regional wall motion abnormalities noted. Right Ventricle Normal RV size. Normal systolic function. Mitral Valve Normal mitral valve. Pericardium/Pleural No pericardial effusion. MMode/2D Measurements & Calculations LVIDd: 3.7 cm IVSd: 0.89 cm Ao root diam: 3.3 cm LVIDs: 2.2 cm LVPWd: 0.89 cm FS: 39.9 % LA dimension(2D): 2.5 cm Interpretation Summary Normal LV size. Left ventricular systolic function is normal. The estimated ejection fraction is 60 %. No pericardial effusion. Ordering Physician: Renu Mejia Referring Physician: Renu Mejia Performed By: Virginia Galeano RDCS
== END ==
PROVIDERS: Family Provider Internal Medicine; PCP Internal Medicine; Referring Provider Internal Medicine; Visit Provider Internal Medicine
DX: I30.9 Acute pericarditis, unspecified (principal)
CPT/HCPCS: 93308

== ENCOUNTER → 2018-03-28 14:52 | Outpatient (CLI) | payer OTHER, SELFPAY ==
[2018-03-04 10:27] VITALS: BMI 28.3
[2018-03-28 15:54] LABS: Absolute Lymphocyte Count 3.51 X10^3/ul (0.83-4.51); Absolute Neutrophil Count 3.7 X10^3/uL (2.0-7.7); Basophil# 0.07 X10^3/uL; Basophil% 0.8 % (0-1); Eosinophils% 2.4 % (0-5); Hematocrit 39.5 % (37-47); Hemoglobin 13.1 g/dl (12.0-15.0); Lymphocyte # 3.51 X10^3/ul (4.0); Lymphocyte % 41.9 % (19-41); Mean Corp Hgb Conc 33.2 g/gl (32-36); Mean Corpuscular Hgb 29.9 pg (27.0-32.0); Mean Corpuscular Volume 90.2 fL (81-99); Mean Platelet Vol. 12.1 fl (6.2-12.0); Monocyte# 0.86 X10^3/uL; Monocyte% 10.3 % (0-10); Neutrophil % 44.1 % (47-70); Platelet Count 248 K/mm3 (150-450); RBC Distribution Width CV 13.6 % (11.6-14.6); Red Blood Count 4.38 M/mm3 (4.2-5.4); White Blood Count 8.4 K/mm3 (4.4-11.0)
[2018-03-28 15:55] LABS: POSITIVE COUNT NO; POSITIVE DIFFERENTIAL NO; POSITIVE MORPHOLOGY NO
[2018-03-28 16:15] LABS: AST(SGOT) 53 U/L (15-37); Alanine Aminotransfer ALT/SGPT 98 U/L (13-56); Albumin, Serum 3.5 g/dL (3.2-5.0); Alkaline Phosphatase 109 U/L (45-117); Bilirubin, Direct 0.12 mg/dL (0.00-0.30); Globulin 2.8 g/dL (2.2-4.2); Protein, Total 6.3 g/dL (6.4-8.2)
--- OUTSIDE RECORDS SUMMARY | 2018-05-14 12:11 | XMS RPT_ITS | Continuity of Care Document ---
:1970 Author Organization [facility] Address [facility] [address] [address] Phone Care Team Providers Name Role Phone JackieRenu chang DO Unavailable Fast Gosia LAKE Unavailable GravLulu christie Unavailable Unavailable Unavailable Unavailable Problems Name Dates Details Abnormal EKG (R94.31, 794.31) Status: Active BMI 24.0-24.9, adult (Z68.24, V85.1) Status: Active BMI 25.0-25.9,adult (Z68.25, V85.21) Comments: 25.47 Status: Active BMI 27.0-27.9,adult (Z68.27, V85.23) Status: Active BMI 27.0-27.9,adult (Z68.27, V85.23) Status: Active Breast lump on left side at 1 o'clock position (N63.21, 611.72) Comments: has some gotten smaller, tender mobile benign signs ? infection will do atb after will get us asure nothing there. no nipple dischasrge Status: Active Current non-smoker (Z78.9, V49.89) Status: Active Deliveries (Parity) Comments: 2. Status: Active Encounter for screening mammogram for breast cancer (Renamed from Encounter for screening mammogram for malignant neoplasm of breast) (Z12.31, V76.12) Status: Active Hematuria, microscopic (R31.29, 599.72) Status: Active History of ischemic colitis (Z87.19, V12.79) Status: Active Impaired fasting glucose (R73.01, 790.21) Status: Active Influenza A (J10.1, 487.1) Status: Active Non-smoker (Z78.9, V49.89) Status: Active Nutritional counseling (Z71.3, V65.3) Status: Active Osteoporosis (M81.0, 733.00) Status: Active Other acute pericarditis (I30.8, 420.99) Status: Active Other hyperlipidemia (E78.49, 272.4) Status: Active Postmenopausal estrogen deficiency (Z78.0, V49.81) [facility] Status: Active Pregnancies () Comments: 2. Status: Active Unspecified Diagnosis Status: Active Unspecified Diagnosis Status: Active Upper respiratory infection (J06.9, 465.9) Comments: think viral but if not improve call and will give antiobiic Status: Active Medications Name Dates Details Colchicine 0.6 MG Oral Capsule Active 1 tab bid (0.6 MG) Estradiol 0.05 MG/24HR Transdermal Patch Weekly 1 (one) Patch Patch weekly for 30 days Quantity: 4 {Patch} Refills: 5 Ordered:26-Oct-2017 Cammy Fernández LPN Start : 26-Oct-2017 Active Ibuprofen 600 MG Oral Tablet 1 tab tid as needed (600 MG) Active Comments:Medication taken as needed. Pepcid 20 MG Oral Tablet 1 tab bid (20 MG) Active Prolia 60 MG/ML Subcutaneous Solution 1 injection Solution q 6months for 0 days Quantity: 1 {Pre-filled_Pen_Syringe} Refills: 1 Ordered:07-Jun-2017 Kwabena Mejia DO, DO, Kathleen Start : 07-Jun-2017 Active Prolia 60 MG/ML Subcutaneous Solution 1 injection Solution q 6months for 0 days Quantity: 1 {Milliliter} Refills: 1 Ordered:07-Jun-2017 Kwabena Mejia DO, DO, Kathleen Start : 07-Jun-2017 Active Vitamin D3 5000 UNIT Oral Capsule 1 (one) Capsule qd for 0 days Quantity: 30 {Capsule} Refills: 11 Ordered:20-Mar-2017 Kwabena Mejia DO, DO, Kathleen Start : 20-Mar-2017 Active Adipex-P 37.5 MG Oral Tablet 1 (one) Tablet qam for 0 days Quantity: 30 {Tablet} Refills: 0 Ordered:29-Jan-2017 Nadeen Smiley Start : 30-Oct-2016 End : 29-Jan-2017 Inactive Comments:thirty bmi 30wt 164bmi 27wt 148bmi 25.97wt bmi 25.47wt 139 Estrace 0.5 MG Oral Tablet 1 tab Tablet daily for 0 days Quantity: 30 {Tablet} Refills: 3 Ordered:26-Oct-2017 Meghan Hammond LPN Start : 20-Mar-2017 End : 26-Oct-2017 Inactive Comments:pap needs to be updated KEFLEX, 500MG (Oral Capsule) 1 (one) Capsule tid for 0 days Quantity: 30 {Capsule} Refills: 0 Ordered:18-Jan-2015 NO Johnson Start : 25-Dec-2014 End : 18-Jan-2015 Inactive Zithromax Z-Jerardo 250 MG Oral Tablet tad Tablet qd for 0 days Quantity: 1 {Package} Refills: 0 Ordered:12-Jul-2016 Cammy Fernández LPN Start : 03-May-2016 End : 12-Jul-2016 Inactive Allergies and Adverse Reactions Name Dates Details No Known Allergies (Allergy) Onset: 30-Oct-2016 Status: Active No Known Drug Allergies (Allergy) Onset: 18-Aug-2014 Status: Active Past Medical History Name Dates Details BMI 26.0-26.9,adult (Z68.26, V85.22) Status: Inactive as of 27-Nov-2016 BMI 28.0-28.9,adult (Z68.28, V85.24) Status: Inactive as of 27-Nov-2016 BMI 30.0-30.9,adult (Z68.30, V85.30) Status: Inactive as of 27-Nov-2016 Bronchitis (J40, 490) Status: Inactive as of 12-Jul-2016 Cough (R05, 786.2) Status: Inactive as of 12-Jul-2016 Impaired Fasting Glucose (Renamed from Elevated fasting blood sugar) (R73.01, 790.21) Status: Inactive as of 14-Sep-2014 screening Status: Inactive as of 25-Dec-2014 Secondary hyperparathyroidism (N25.81, 588.81) Comments: from vit D excess and last lab ck normalized Status: Resolved as of 14-Nov-2017 Procedures Procedure Dates Details Appendectomy Completed Gallbladder Surgery - Laparoscopic Completed Hysterectomy; Total Completed Date Value Details 22-Feb-2018 Emergency Department Summary Result: Comments: See Note; NOTES: [facility] Medical Records Department [address] [place] [address] Emergency Department Summary 02/22/18 1217 MR#: [id number] Acct: [id number] Name: LIV HEDRICK Rep #: [id number] : 1970 47 From: Garett Anderson MD PCP: Renu Mejia DO Status: REG ER - ER Visit Summary Date of Service: 02/22/18 Chief Complaint: Left-sided chest pain noemi t is positional and pleuritic. History of Present Illness: The patient is a 47 F who was diagnosed with influenza a February 04. She presents with chest pain that has a pleuritic and positional componen t since Sunday. She reports improvement leaning forward and significant pain lying flat on her back. She denies fever, chills or night sweats. She denies orthopnea or PND. She does complain of mild s hortness of breath and mild dyspnea with exertion. She denies ocular, visual or auditory symptoms. She denies trouble with speech or swallowing. She denies cough or sputum production. She denies nausea, vomiting or diarrhea. She denies dysuria, frequency, urgency or hematuria. She denies leg pain, swelling or discoloration. She denies history of PE or DVT. Please read written note for complete detail Physical Examination: Vital signs noted. She appears uncomfortable. Head is atraumatic normocephalic. Pupils are equal round reactive. Extraocular muscles are intact. TMs are pearly white with landmark s noted. Nares patent with no drainage. Posterior pharynx without erythema or exudate. Uvula is midline. There is no dysphonia or dysphasia. Trachea is midline. There is no stridor with auscultation of the neck. Heart is regular without murmur, gallop or rub. S1 and S2 are normal. Lungs are clear to auscultation with good movement of air bilaterally. Abdomen soft nontender. There is no asymmetry, swel ling, discoloration, leg vein distention, palpable cords or tenderness along the distribution of the deep venous system. Neuro exam is nonfocal. Test Results: EKG sinus rhythm rate of [address]-T wave changes and unchanged compared to EKG from 9 years ago. GA interval normal. QRS duration normal. QT interval is prolonged. [place] is normal. CBC unremarkable. Troponin normal. ESR 10. Transt horacic echo was obtained and revealed no effusion. Left ejection fraction normal. Emergency Department Course and Treatment: Workup for pericarditis, pneumonia, myocarditis. Consulted Dr. Lomas. Kelley Lomas requested admission for pain management. He requested 30 Rust grams Toradol in the emergency department and for the hospital to start indomethacin and colchicine on the unit. Treatment P wai: Anti-inflammatory and colchicine Disposition: Medical surge unit telemetry Impression: Acute pericarditis Recent diagnosis of influenza A This note was generated with Proterra dictation software . It may contain incorrect words, spelling, and punctuation that were not noted in review of the chart prior to signing ED Disposition - Plan for ED Patient: Chief Complaint: Chest Other Referrals: Renu Frederick DO [Primary Care Provider] - What to do if you have Problems For any increased pain, shortness of breath, bleeding, nausea or vomiting, chest pain, or any unexpected problems, contac t your Primary Care Provider. Call [facility] ([phone]) or report to the closest Emergency Room. Call 911 if necessary. 02/22/18 1222 <Electronically signed by Garett Anderson MD> Date Garett Anderson MD Cosigner Signature (If Indicated): Date CC: Renu Mejia DO; Cody Lomas MD 22-Feb-2018 Echocardiogram Complete Result: Comments: See Note; NOTES: [facility] Cardiovascular Services [address] [place] [address] Echo Complete 02/22/18 1020 MR#: [id number] Acct: [id number] Name: LIV HEDRICK Rep #: [id number] : 1970 47 From: Cody Lomas MD Attending Dr: Status: REG ER Ordering Dr: Garett Anderson MD Date: 02/22/18 Location: ED Sex: F C Admitted: Reason For Study: Chest pain Proce dure This was a 2D Doppler, Color Flow transthoracic echocardiogram. The study was technically difficult. Pt. scanned sitting up due to chest pain. Exam performed portable in ED. Left Ventricle Normal LV size. Left ventricular systolic function is normal. The estimated ejection fraction is 65 %. Normal diastology for age. No regional wall motion abnormalities noted. Right Ventricle Normal RV size. N ormal systolic function. Atria Normal left atrium. Normal right atrium. No doppler evidence for ASD. Mitral Valve There is no mitral annular calcification. Normal mitral valve. Tricuspid Valve Sarha l tricuspid valve. Trivial tricuspid valve insufficiency. Unable to estimate RV systolic pressure/pulmonary artery pressure due to technically difficult study. Aortic Valve The aortic valve is not well visualized. Pulmonic Valve The pulmonic valve is not well visualized. Great Vessels Normal sized aortic root. Pericardium/Pleural No pericardial effusion. MMode/2D Measurements AND Calculations LV IDd: 3.8 cm IVSd: 0.72 cm Ao root diam: 2.9 cm LVIDs: 2.3 cm LVPWd: 0.79 cm FS: 38.9 % LAV(MOD-bp): 18.0 ml LA A4 area: 10.0 cm2 LA dimension(2D): 1.9 cm LAV(MOD-bp) Indexed: 10.4 ml/m2 LAV(MOD-sp2): 16.0 ml LAV(MOD-sp4): 19.8 ml RA A4 ar ea: 9.3 cm2 Doppler Measurements AND Calculations MV E max luke: 81.5 cm/sec Lat Peak E' Luke: 9.8 cm/sec Med Peak E' Luke: 10.7 cm/sec MV A max luke: 55.1 cm/sec E/E' lat: 8.3 E/E' med: 7.6 MV E/A: 1.5 _ Ao V2 max: 133.7 cm/sec LV V1 max: 116.6 cm/sec PA V2 max: 95.3 cm/sec Ao max P.2 mmHg LV V1 max P.4 mmHg Interp retation Summary The study was technically difficult. Left ventricular systolic function is normal. The estimated ejection fraction is 65 %. Trivial tricuspid valve insufficiency. Unable to estimate RV systolic pressure/pulmonary artery pressure due to technically difficult study. Normal diastology for age. __ ____ Ordering Physician: Garett Anderson Performed By: Virginia Galeano RDCS 02/22/18 1202 Date Cody Lomas MD CC: Renu Mejia DO; Garett Anderson MD Date Dictated: 02/22/18 1020 Date Transcribed: 02/22/18 1202 Opera Singer: Signed 22-Feb-2018 Chest PA and Lateral Result: Comments: See Note; NOTES: [facility] Imaging Services [address] [place] [address] Chest PA and Lateral MR#: [id number] Acct: [id number] Name: LIV HEDRICK Rep #: [id number] : 1970 F 47 From: Leroy Aj MD PCP: Renu Mejia DO Status: PRE ER Study: Chest PA and Lateral Date of Exam: 02/22/18 Exam# [id number] Ordering Dr: Garett Anderson MD STUDY: X-RAY C HEST REASON FOR EXAM: Female, 47 years old. Left-sided chest pain. TECHNIQUE: PA and lateral views of the chest. COMPARISON: None. FINDINGS: EKG electrodes are se en. The lungs are clear and expanded. There is no demonstrated pleural abnormality. Normal size heart. Normal mediastinum and mary grace. Normal visualized pulmonary arteries. Normal visualized aortic arch and descending thoracic aorta. Normal visualized thoracic spine. Normal visualized ribs, clavicles, and shoulders. There is no demonstrated abnormality of the visualized soft tissue structures of the upper abdomen. RAD/Chest PA and Lateral IMPRESSION: Normal x-ray examination of the chest. Electronically Signed: Leroy Aj MD at 9:14 EST Tel [phone], Service support , CC: Renu Mejia DO; Garett Anderson MD Opera Singer: Signed 04-Feb-2018 Urgent Care Visit Report Result: Comments: See Note; NOTES: [facility] [address] [place] [address] [address] [place] [address] OFFICE VISIT Date of Service: 02/04/18 MR#: [id number] Acct: [id number] Name: LIV HEDRICK ep #: [id number] : 1970 Provider: Yoan FORTE Age/Sex: 47/F Location: [facility] Status: Signed Intake Vital Signs02/04/18 Height 5 ft 3 in Intake Visit Reasons: FEVER , COUGH Chief Complain t: Chills, dry cough, body aches Allergies meperidine [From Demerol] Allergy (Verified 02/04/18 13:50) Vomiting Medications cholecalciferol (vitamin D3) 1,000 unit capsule 1,000 unit PO DAILY [History Confirmed 02/04/18] estradiol 4 mcg vaginal insert 4 mcg VAGINAL 2XW 02/04/18 [History Confirmed 02/04/18] oseltamivir 75 mg capsule 75 mg PO BID 5 Days #10 cap 02/04/18 [Rx Confirmed ] PFSH Surgical History H/O oophorectomy (Acute) History of cholecystectomy (Acute) History of hysterectomy (Acute) Hx of appendectomy (Acute) Family History Other Diabetes Hypertension Leukemia Social History Smoking Status: Never smoker alcohol intake: current alcohol intake frequency: holidays/special occasions only HPI HPI Chief Complaint: Chills, dry cough, body aches Details: PITO HEDRICK, is a 47 F who presents to the office today for initial evaluation approximately 48-72-hour history of dry cough, chills, body aches. Patient notes having received the influenza vaccine a cou ple of weeks ago. She notes being around no family members with similar complaints. She notes no complaints of fever, sweats, rash, chest pain/shortness of breath. She is a non-smoker. She has taken no rhkh-tej-bcrfqmc products to assist with her symptoms. She notes no other associated symptoms, no alleviating or aggravating factors. ROS Const Constitutional: No other (ROS negative x10 other than as noted above) Exam Const General: cooperative (Though mildly warm to touch), healthy appearing, no acute distress Nutritional Appearance: average body habitus Orientation: alert, awake, oriented x3 HE NMT Head: normal to inspection Ears: hearing grossly normal bilaterally, external ears normal, TM's normal bilaterally, EAC's normal Nose: external nose normal, nares normal, septum normal, no nasal dis charge Face and sinus: normal facial exam, sinuses nontender, face symmetric Mouth: tongue normal, lip normal, oropharynx normal, oral mucosae normal Teeth and gingiva: dentition normal, gingiva normal Throat: uvula midline, tonsils normal, posterior oropharynx normal, no postnasal drainage Eyes General: appearance normal, both eyes and all related structures Neck Neck: normal visual inspection, full ROM, no lymphadenopathy, no meningeal signs, supple Neck mass: No Thyroid: thyroid normal Lymphatic: no lymphadenopathy noted Chest Chest palpation AND inspection: normal inspection of the chest Resp Ef fort AND Inspection: normal respiratory effort, able to speak in complete sentences, symmetric chest movement, cough Quality of cough: dry Auscultation: Bilateral: Clear to Auscultation Cardio Palpation : normal PMI Rate: regular rate Rhythm: regular rhythm Heart Sounds: S1 normal, S2 normal, no gallops, no murmurs, no rubs Pulses: radial pulses present GI Inspection: normal to inspection Palpation: so ft, no hepatosplenomegaly Skin General: no rashes or lesions noted Neuro General: alert, awake, oriented x3, gait normal Cognition: normal cognition Speech: speech normal Gait: normal gait Motor: muscle tone normal throughout Sensory Exam: no sensory deficits noted Psych Appearance: grossly normal Mental Status: mental status grossly normal Mood: congruent mood Affect: normal affect Speech and Movemen t: speech and movement normal Attitude: cooperative Thought Process: normal Thought Content: normal Judgment: judgment good Results BMSFLUAB Office Flu A AND B Pos FLU A AND Neg FLU B Last Edit by Jean Pierre Yen on 02/04/18 14:08 Assessment AND Plan Problems 1. Influenza A J10.1 Plan Patient aware today's rapid flu test was positive. Tamiflu as prescribed today. Work excuse offered; patient re fused. Follow-up with PCP in 5-7 days should symptoms not improve, emergency department sooner should symptoms worsen or any other concerns develop. Patient states acknowledging understanding all the ab ove. This note was generated with G2Linkation software. It may contain incorrect words, spelling, and punctuation that were not noted in checking the note before signing. Orders Orders: Medicati ons New: Coding Level of Care Code Off vis,new,level 3 Diagnoses Influenza A J10.1 02/04/18 1414 <Electronically signed by Yoan FORTE> Date Yoan FORTE Cosigner Signature: Date (if applicable) CC: 28-Jun-2017 Dexa Bone Density Study () Result: Comments: See Note; NOTES: [facility] Imaging Services [address] [place] [address] Dexa Bone Density Study () MR#: [id number] Acct: [id number] Name: HEDRICKLIV L Rep # : [id number] : 1970 F 46 From: Leroy Aj MD PCP: Status: [facility] Study: Dexa Bone Density Study () Date of Exam: 06/28/17 Exam# [id number] Ordering Dr: Renu Mejia DO STUDY: DU AL ENERGY X-RAY ABSORPTIOMETRY / DXA REASON FOR EXAM: Female, 46 years old. Early menopause. No loss of height. TECHNIQUE: Bone Mineral Density (BMD) measurements of lumbar spine and bilateral hips we re obtained. COMPARISON: Comparison is made with prior study dated March 26, 2012. FINDINGS: Lumbar Spine (L1-L4): g/cm2 (0.977) / T-score (-1.7) / Z-score (-1. 6) Findings are suggestive of osteopenia with a moderate fracture risk. Left Femur Total: g/cm2 (0.695) / T-score (-2.5) / Z-score (-2.2) Left Femoral Neck: g/cm2 (0.688) / T-score (-2.5) / Z-score (-1 .9) Right Femur Total: g/cm2 (0.697) / T-score (-2.5) / Z-score (-2.1) Right Femoral Neck: g/cm2 (0.700) / T-score (-2.4) / Z-score (-1.8) The T-Scores on the most recent prior examination were: Lumba r Spine (L1-L4): There has been worsening of bone density since the previous examination. Left Femur Total: which represents an improvement of 2.5%. Right Femur Total: which represents an improvement o f 6.7%. HPBD/Dexa Bone Density Study (HP) IMPRESSION: The patient is considered osteopenic as outlined below according to World [employer] n (WHO) criteria with a high fracture risk. There has been improvement of bone density since the previous examination. Reference Information: The T-score is the num baldemar of standard deviations above or below the standard which is normal for young adults at their peak bone mineral density. The World Health Organization (WHO) interprets the T-scores as follows: Above -1 Normal bone density Between -1 and -2.5 Osteopenia Equal to / or below -2.5 Osteoporosis As a practical clinical guideline, osteopenia may be graded as follows: Mild -1 through -1.5 Moderate -1.6 t hrough -2.0 Severe -2.1 through -2.4 The Z-score is the number of standard deviations above or below age-matched controls. A Z-score of less than -1.5 would be considered abnormal. References: 1. NIH Osteoporosis and Related Bone Diseases http://www.osteo.org 2. International Society for Clinical Densitometry http://www.iscd.org 3. National Osteoporosis Foundation http://www.nof.org Electronically Signed: Leroy Aj MD at 10:50 EDT Tel [phone], Service support , CC: Renu Mejia DO Opera Singer: Signed Family History Unknown Family Member Name Dates Details Father Comments: living aml and dm - had stem cell transplant Status: Active Mother Comments: mother living - dm Status: Active Social History Name Dates Details Alcohol Use: Occasional alcohol use. Status: Active Caffeine Use Comments: 1 cup qd Status: Active Current Work/Study Status Comments: [employer] Status: Active Living Situation Comments: lives with spouse Status: Active No Drug Use Status: Active Tobacco use: Never smoker. Status: Active Smoking Status Name Dates Details Never smoker Vital Signs Date Test Result Details :09 Temperature 98 f Comments: Method: Temporal Pulse 85 /min Comments: Pattern: Regular Respiration Rate 16 /min Comments: Pattern: Unlabored O2 SAT 98 % Comments: Room air BP Systolic 102 mm[Hg] Comments: Patient Position: Sitting; Cuff Location: Left Arm; Cuff Size: Standard BP Diastolic 79 mm[Hg] Comments: Patient Position: Sitting; Cuff Location: Left Arm; Cuff Size: Standard Weight 155 lb Height 62 in Body Mass Index Calculated 28.35 kg/m2 Body Surface Area Calculated 1.72 m2 :55 Pulse 79 /min Comments: Pattern: Regular Respiration Rate 18 /min Comments: Pattern: Unlabored O2 SAT 98 % Comments: Room air BP Systolic 118 mm[Hg] Comments: Patient Position: Standing; Cuff Location: Left Arm; Cuff Size: Standard BP Diastolic 68 mm[Hg] Comments: Patient Position: Standing; Cuff Location: Left Arm; Cuff Size: Standard Weight 151 lb Height 62 in Body Mass Index Calculated 27.62 kg/m2 Body Surface Area Calculated 1.7 m2 :10 Pulse 100 /min Comments: Pattern: Regular Respiration Rate 18 /min Comments: Pattern: Unlabored O2 SAT 93 % Comments: Room air BP Systolic 118 mm[Hg] Comments: Patient Position: Sitting; Cuff Location: Left Arm; Cuff Size: Standard BP Diastolic 78 mm[Hg] Comments: Patient Position: Sitting; Cuff Location: Left Arm; Cuff Size: Standard Weight 137.5 lb Height 62 in Body Mass Index Calculated 25.15 kg/m2 Body Surface Area Calculated 1.63 m2 :21 Pulse 84 /min Comments: Pattern: Regular Respiration Rate 16 /min Comments: Pattern: Unlabored O2 SAT 98 % Comments: Room air BP Systolic 118 mm[Hg] Comments: Patient Position: Sitting; Cuff Location: Left Arm; Cuff Size: Standard BP Diastolic 68 mm[Hg] Comments: Patient Position: Sitting; Cuff Location: Left Arm; Cuff Size: Standard Weight 133 lb Height 62 in Body Mass Index Calculated 24.33 kg/m2 Body Surface Area Calculated 1.61 m2 :20 Pulse 93 /min Comments: Pattern: Regular Respiration Rate 18 /min Comments: Pattern: Unlabored O2 SAT 98 % Comments: Room air BP Systolic 120 mm[Hg] Comments: Patient Position: Sitting; Cuff Location: Left Arm; Cuff Size: Standard BP Diastolic 78 mm[Hg] Comments: Patient Position: Sitting; Cuff Location: Left Arm; Cuff Size: Standard Weight 135 lb Height 62 in Body Mass Index Calculated 24.69 kg/m2 Body Surface Area Calculated 1.62 m2 :27 Temperature 97.5 f Comments: Method: Temporal Pulse 94 /min Comments: Pattern: Regular Respiration Rate 16 /min Comments: Pattern: Unlabored BP Systolic 112 mm[Hg] Comments: Patient Position: Sitting; Cuff Location: Left Arm; Cuff Size: Standard BP Diastolic 68 mm[Hg] Comments: Patient Position: Sitting; Cuff Location: Left Arm; Cuff Size: Standard Weight 139.25 lb Height 62 in Body Mass Index Calculated 25.47 kg/m2 Body Surface Area Calculated 1.64 m2 :36 Temperature 97.6 f Comments: Method: Temporal Pulse 86 /min Comments: Pattern: Regular Respiration Rate 16 /min Comments: Pattern: Unlabored O2 SAT 98 % Comments: Room air BP Systolic 124 mm[Hg] Comments: Patient Position: Sitting; Cuff Location: Left Arm; Cuff Size: Standard BP Diastolic 76 mm[Hg] Comments: Patient Position: Sitting; Cuff Location: Left Arm; Cuff Size: Standard Weight 142 lb Height 62 in Body Mass Index Calculated 25.97 kg/m2 Body Surface Area Calculated 1.65 m2 :00 Pulse 74 /min Comments: Pattern: Regular Respiration Rate 18 /min Comments: Pattern: Unlabored O2 SAT 98 % Comments: Room air BP Systolic 118 mm[Hg] Comments: Patient Position: Sitting; Cuff Location: Left Arm; Cuff Size: Standard BP Diastolic 80 mm[Hg] Comments: Patient Position: Sitting; Cuff Location: Left Arm; Cuff Size: Standard Weight 148.375 lb Height 62 in Body Mass Index Calculated 27.14 kg/m2 Body Surface Area Calculated 1.68 m2 :16 Pulse 72 /min Comments: Pattern: Regular Respiration Rate 18 /min Comments: Pattern: Unlabored O2 SAT 97 % Comments: Room air BP Systolic 118 mm[Hg] Comments: Patient Position: Sitting; Cuff Location: Left Arm; Cuff Size: Large BP Diastolic 78 mm[Hg] Comments: Patient Position: Sitting; Cuff Location: Left Arm; Cuff Size: Large Weight 146.25 lb Height 62 in Body Mass Index Calculated 26.75 kg/m2 Body Surface Area Calculated 1.67 m2 :06 Pulse 101 /min Comments: Pattern: Regular Respiration Rate 18 /min Comments: Pattern: Unlabored O2 SAT 97 % Comments: Room air BP Systolic 122 mm[Hg] Comments: Patient Position: Sitting; Cuff Location: Left Arm; Cuff Size: Standard BP Diastolic 82 mm[Hg] Comments: Patient Position: Sitting; Cuff Location: Left Arm; Cuff Size: Standard Weight 151.125 lb Height 62 in Body Mass Index Calculated 27.64 kg/m2 Body Surface Area Calculated 1.7 m2 :21 Pulse 78 /min Comments: Pattern: Regular Respiration Rate 18 /min Comments: Pattern: Unlabored O2 SAT 97 % Comments: Room air BP Systolic 118 mm[Hg] Comments: Patient Position: Sitting; Cuff Location: Left Arm; Cuff Size: Large BP Diastolic 70 mm[Hg] Comments: Patient Position: Sitting; Cuff Location: Left Arm; Cuff Size: Large Weight 158 lb Height 62 in Body Mass Index Calculated 28.9 kg/m2 Body Surface Area Calculated 1.73 m2 :30 Pulse 94 /min Comments: Pattern: Regular Respiration Rate 18 /min Comments: Pattern: Unlabored O2 SAT 93 % Comments: Room air BP Systolic 120 mm[Hg] Comments: Patient Position: Sitting; Cuff Location: Left Arm; Cuff Size: Standard BP Diastolic 78 mm[Hg] Comments: Patient Position: Sitting; Cuff Location: Left Arm; Cuff Size: Standard Weight 164.125 lb Height 62 in Body Mass Index Calculated 30.02 kg/m2 Body Surface Area Calculated 1.76 m2 :12 Pulse 67 /min Comments: Pattern: Regular Respiration Rate 18 /min Comments: Pattern: Unlabored O2 SAT 97 % Comments: Room air BP Systolic 110 mm[Hg] Comments: Patient Position: Sitting; Cuff Location: Left Arm; Cuff Size: Standard BP Diastolic 70 mm[Hg] Comments: Patient Position: Sitting; Cuff Location: Left Arm; Cuff Size: Standard Weight 174 lb Height 62 in Body Mass Index Calculated 31.82 kg/m2 Body Surface Area Calculated 1.8 m2 :45 Temperature 97.2 f Comments: Method: Temporal Pulse 74 /min Comments: Pattern: Regular Respiration Rate 18 /min Comments: Pattern: Unlabored O2 SAT 98 % Comments: Room air BP Systolic 118 mm[Hg] Comments: Patient Position: Sitting; Cuff Location: Left Arm; Cuff Size: Standard BP Diastolic 76 mm[Hg] Comments: Patient Position: Sitting; Cuff Location: Left Arm; Cuff Size: Standard Weight 164 lb Height 62 in Body Mass Index Calculated 30 kg/m2 Body Surface Area Calculated 1.76 m2 :29 Temperature 97.9 f Comments: Method: Temporal Pulse 74 /min Comments: Pattern: Regular Respiration Rate 20 /min Comments: Pattern: Unlabored O2 SAT 98 % Comments: Room air BP Systolic 116 mm[Hg] Comments: Patient Position: Sitting; Cuff Location: Left Arm; Cuff Size: Standard BP Diastolic 76 mm[Hg] Comments: Patient Position: Sitting; Cuff Location: Left Arm; Cuff Size: Standard Weight 164 lb Height 62 in Body Mass Index Calculated 30 kg/m2 Body Surface Area Calculated 1.76 m2 :28 Temperature 97.6 f Comments: Method: Temporal Pulse 100 /min Comments: Pattern: Regular Respiration Rate 18 /min Comments: Pattern: Unlabored O2 SAT 97 % Comments: Room air BP Systolic 124 mm[Hg] Comments: Patient Position: Sitting; Cuff Location: Left Arm; Cuff Size: Standard BP Diastolic 84 mm[Hg] Comments: Patient Position: Sitting; Cuff Location: Left Arm; Cuff Size: Standard Weight 164 lb Height 62 in Body Mass Index Calculated 30 kg/m2 Body Surface Area Calculated 1.76 m2 :18 Temperature 97.6 f Pulse 71 /min Comments: Pattern: Regular O2 SAT 98 % Comments: Room air BP Systolic 122 mm[Hg] Comments: Patient Position: Sitting; Cuff Location: Left Arm; Cuff Size: Standard BP Diastolic 86 mm[Hg] Comments: Patient Position: Sitting; Cuff Location: Left Arm; Cuff Size: Standard Weight 164 lb Height 62 in Body Mass Index Calculated 30 kg/m2 Body Surface Area Calculated 1.76 m2 :01 Temperature 98.1 f Comments: Method: Oral Pulse 72 /min Comments: Pattern: Regular Respiration Rate 16 /min Comments: Pattern: Unlabored BP Systolic 108 mm[Hg] Comments: Patient Position: Sitting; Cuff Location: Left Arm; Cuff Size: Standard BP Diastolic 66 mm[Hg] Comments: Patient Position: Sitting; Cuff Location: Left Arm; Cuff Size: Standard Weight 161 lb Height 62 in Body Mass Index Calculated 29.45 kg/m2 Body Surface Area Calculated 1.74 m2 Results Date Description Value Details :35 CBC W/Diff, Automated Comments: [facility] [address] [place], [place], [address] Absolute Lymph 1.94 {X10_3/ul} (Normal) Range: 0.83-4.51 Absolute Neut 2.7 {X10_3/uL} (Normal) Range: 2.0-7.7 IM GRAN % 0.200 % (Normal) Range: 0.0-0.9 Comments: IG% - Immature Granulocytes (promyelocytes, myelocytes andmetamyelocytes) > 1% indicates that a LEFT SHIFT is Present. BASO% 1.1 % (Abnormal) Range: 0-1 EO% 1.9 % (Normal) Range: 0-5 MONO% 9.2 % (Normal) Range: 0-10 LY% 36.5 % (Normal) Range: 19-41 NEUT% 51.1 % (Normal) Range: 47-70 MPV 11.4 fL (Normal) Range: 6.2-12.0 PLT 308 K/mm3 (Normal) Range: 150-450 RDW SD 41.6 fL (Normal) Range: 35.1-43.9 RDW CV 12.8 % (Normal) Range: 11.6-14.6 MCHC 33.6 {g/gl} (Normal) Range: 32-36 MCH 30.1 pg (Normal) Range: 27.0-32.0 MCV 89.5 fL (Normal) Range: 81-99 HCT 43.7 % (Normal) Range: 37-47 HGB 14.7 g/dL (Normal) Range: 12.0-15.0 RBC 4.88 {M/mm3} (Normal) Range: 4.2-5.4 WBC 5.3 K/mm3 (Normal) Range: 4.4-11.0 :35 Erythrocyte Sed Rate Comments: [facility] [address] [place], [place], [address] SED RATE 10 mm/h (Normal) Range: 0-20 :35 Troponin-I Comments: [facility] [address] [place], [place], [id number] TROPONIN-I < 0.015 ng/mL (Normal) Comments: TROPONIN-I EXPECTED VALUES <0.045 Negative 0.045 - 0.590 Consistent with Cardiac Damage > OR = 0.600 Critical Value Not every elevated troponin is indicative of MT. T hesevalues should be used with clinical judgement in examiningthe patient's clinical picture for diagnosis. To establisha diagnosis of MT versus myocardial injury, there must be ademonstrated rise and/ or fall in the troponin values, inaddition to ischemic symptoms, EKG changes, new regionalwall motion abnormality, and/or angiographical evidence. PLEASE NOTE: REFERENCE RANGES EDITED 08/27/1712-Nov-201772-Apl-286679:19 CBC W/Diff, Automated Comments: [facility] [address] [place], [place], [id number] Absolute Lymph 1.67 {X10_3/ul} (Normal) Range: 0.83-4.51 Absolute Neut 1.6 {X10_3/uL} (Abnormal) Range: 2.0-7.7 IM GRAN % 0.200 % (Normal) Range: 0.0-0.9 Comments: IG% - Immature Granulocytes (promyelocytes, myelocytes andmetamyelocytes) > 1% indicates that a LEFT SHIFT is Present. BASO% 0.7 % (Normal) Range: 0-1 EO% 3.7 % (Normal) Range: 0-5 MONO% 14.4 % (Abnormal) Range: 0-10 LY% 40.8 % (Normal) Range: 19-41 NEUT% 40.2 % (Abnormal) Range: 47-70 MPV 11.2 fL (Normal) Range: 6.2-12.0 PLT 286 K/mm3 (Normal) Range: 150-450 RDW SD 43.5 fL (Normal) Range: 35.1-43.9 RDW CV 13.2 % (Normal) Range: 11.6-14.6 MCHC 33.2 {g/gl} (Normal) Range: 32-36 MCH 30.0 pg (Normal) Range: 27.0-32.0 MCV 90.3 fL (Normal) Range: 81-99 HCT 39.2 % (Normal) Range: 37-47 HGB 13.0 g/dL (Normal) Range: 12.0-15.0 RBC 4.34 {M/mm3} (Normal) Range: 4.2-5.4 WBC 4.1 K/mm3 (Abnormal) Range: 4.4-11.0 03-Kfm-700182:19 Comprehensive Metabolic Profil Comments: [facility] [address], [place], [id number] GAP 9 (Normal) Range: 5-15 CO2 28.0 mmol/L (Normal) Range: 21.0-32.0 CL 105 mmol/L (Normal) Range: 98-107 K 4.1 mmol/L (Normal) Range: 3.5-5.1 NA 142 mmol/L (Normal) Range: 136-145 T BILI 0.50 mg/dL (Normal) Range: 0.20-1.00 ALT 23 U/L (Normal) Range: 13-56 ALK P 106 U/L (Normal) Range: 45-117 AST 17 U/L (Normal) Range: 15-37 CA 8.8 mg/dL (Normal) Range: 8.5-10.1 A/G 1.0 {RATIO} (Normal) Range: 0.9-2.4 GLOB 3.6 g/dL (Normal) Range: 2.2-4.2 ALB 3.6 g/dL (Normal) Range: 3.2-5.0 T PROT 7.2 g/dL (Normal) Range: 6.4-8.2 BUN/CRE 12.6 {RATIO} (Normal) Range: 10-20 EST GFR - AA 114 mL/min (Normal) Comments: GFR Calc EST GFR 94 mL/min (Normal) Comments: Non- GFR Calc CREAT,SERUM 0.71 mg/dL (Normal) Range: 0.55-1.02 Comments: The validity of the calculated GFR AND GFRAA in patients over70 years has not been determined. Clinical correlation isessential. BUN 9 mg/dL (Normal) Range: 7-18 GLU 94 mg/dL (Normal) Range: 74-106 Comments: Please note revised GLUCOSE reference range gfvjufeyi85/02/2018. 43-Upe-089579:19 Hemoglobin A1c Comments: [facility] [address] [place], [address] HGB A1C 5.4 % (Normal) Range: 4.2-6.3 95-Bvf-110243:19 Lipid Profile Comments: [facility] [address] [place], [address] VLDL 20 mg/dL (Normal) Range: 5-40 LDL 125 mg/dL (Normal) Range: 0-130 HDL 85 mg/dL (Normal) Comments: The drugs N-Acetylcysteine and Metamizole may falselydepress this assay. Reference Range HDL <40 mg/dL Low HDL Cholesterol HDL >or= 60 mg/dL High HDL Cholesterol TRIG 100 mg/dL (Normal) Comments: The drugs N-Acetylcysteine and Metamizole may falselydepress this assay.Serum Triglycerides Reference Interval Normal <150 mg/dL Borderline high 150 - 199 mg/dL High 200 - 499 mg/dL Very High > or = 500 mg/dL CHOL 230 mg/dL (Abnormal) Comments: <200 mg/dL Desirable 200-240 mg/dL Borderline >240 mg/dL High Risk 23-Ueu-554607:19 Lipoprotein A <10 nmol/L (Normal) Comments: [facility] (refer to report for specific site)refer to report for address and phone number Comments: Note: Values greater than or equal to 75 nmol/L may indicate an independent risk factor for CHD, but must be evaluated with caution when applied to non- populations due to th e influence of genetic factors on Lp(a) across ethnicities.Performed at: [address] [id number] Director: Keith Chun PhD, Phone: [phone] 20-Acs-348416:19 Microalb:Creat Ratio,Random UR Comments: [facility] [address] [place], [place], [address] MALB:CREAT 6.0 {mg/g_CRE} (Normal) MICROALBUMIN,UR 5.6 mg/L (Normal) UR CREAT 92.20 mg/dL (Normal) 63-Kyz-123808:19 Thyroid Stim Hormone (TSH) Comments: [facility] [address] [place], [place], [id number] TSH 0.89 {uIU/mL} (Normal) Range: 0.358-3.74 31-Yts-58822:19 HGB A1C (30419) Comments: PATIENT NOT FASTINGPERFORMED BY: [facility] [id number] Hemoglobin A1c 5.6 % (Normal) Range: 4.8-5.6 Comments: . Pre-diabetes: 5.7 - 6.4 Diabetes: >6.4 Glycemic control for adults with diabetes: <7.0 :28 HGB A1C (55526) Comments: PATIENT NOT FASTINGPERFORMED BY: [facility] [address] [place] [address] [id number] Hemoglobin A1c 5.4 % (Normal) Range: 4.8-5.6 Comments: . Pre-diabetes: 5.7 - 6.4 Diabetes: >6.4 Glycemic control for adults with diabetes: <7.0 0-Mkl-213905:55 HgA1C , Office (80106) HgA1C , Office 5.6 % (Normal) Range: 4.6 - 7.1 Plan of Care Name Dates Details Instructions Influenza A : Reviewed Lab Indication: Influenza A Influenza A : Reviewed Diagnostic Tests Indication: Influenza A Influenza A : Reviewed Pigment Pusher Letter Indication: Influenza A BMI 27.0-27.9,adult : Eprescribed prescriptions (G8553) Indication: BMI 27.0-27.9,adult Impaired fasting glucose : Follow up in 6 months Indication: Impaired fasting glucose Other hyperlipidemia : Reviewed Lab Indication: Other hyperlipidemia Impaired fasting glucose : Reviewed Lab Indication: Impaired fasting glucose Other hyperlipidemia : Cholesterol mgmt Indication: Other hyperlipidemia Impaired fasting glucose : Follow up in 4 months Indication: Impaired fasting glucose Other hyperlipidemia : Cholesterol mgmt Indication: Other hyperlipidemia Impaired fasting glucose : Eprescribed prescriptions (G8553) Indication: Impaired fasting glucose Impaired fasting glucose : Follow up in 4 months Indication: Impaired fasting glucose Other hyperlipidemia : Reviewed Lab Indication: Other hyperlipidemia Impaired fasting glucose : Reviewed Lab Indication: Impaired fasting glucose BMI 24.0-24.9, adult : Eprescribed prescriptions (G8553) Indication: BMI 24.0-24.9, adult Impaired fasting glucose : Diet, Exercise, Indication: Impaired fasting glucose Impaired fasting glucose : Follow up in 4 weeks Indication: Impaired fasting glucose BMI 25.0-25.9,adult : Eprescribed prescriptions (G8553) Indication: BMI 25.0-25.9,adult Impaired fasting glucose : *Diabetes Education Indication: Impaired fasting glucose BMI 25.0-25.9,adult : Eprescribed prescriptions (G8553) Indication: BMI 25.0-25.9,adult Impaired fasting glucose : Follow up in 3 weeks Indication: Impaired fasting glucose Impaired fasting glucose : Diet, Exercise, and Wt loss Indication: Impaired fasting glucose Current non-smoker : Eprescribed prescriptions (G8553) Indication: Current non-smoker Impaired fasting glucose : Diet, Exercise, and Wt loss Indication: Impaired fasting glucose Impaired fasting glucose : *Diabetes Education Indication: Impaired fasting glucose Other hyperlipidemia : Cholesterol mgmt Indication: Other hyperlipidemia Impaired fasting glucose : Follow up in 4 months Indication: Impaired fasting glucose Impaired fasting glucose : Reviewed Lab Indication: Impaired fasting glucose Impaired fasting glucose : Follow up in 1 month Indication: Impaired fasting glucose Impaired fasting glucose : Follow up in 1 month Indication: Impaired fasting glucose Impaired fasting glucose : Follow up in 1 month Indication: Impaired fasting glucose Impaired fasting glucose : Follow up in 6 months Indication: Impaired fasting glucose Osteoporosis : Continue Current Prescription(s) Indication: Osteoporosis Impaired fasting glucose : Reviewed Lab Indication: Impaired fasting glucose Other hyperlipidemia : Cholesterol mgmt Indication: Other hyperlipidemia Impaired fasting glucose : Eprescribed prescriptions (G8553) Indication: Impaired fasting glucose Other hyperlipidemia : Eprescribed prescriptions (G8553) Indication: Other hyperlipidemia Osteoporosis : Osteoporosis in Women *: bone density Indication: Osteoporosis Osteoporosis : Eprescribed prescriptions (G8553) Indication: Osteoporosis Planned Observations TSH (THYROID STIMULATING HORMONE) ([id number])Indication: Impaired fasting glucose On: :53 Request MICROALBUMIN: CREATININE RATIO (66489) AND (96904)Indication: Impaired fasting glucose On: :53 Request METABOLIC PANEL, COMPREHENSIVE (41630)Indication: Impaired fasting glucose On: :53 Request LIPOPROTEIN, BLD, BY NMR (48079)Indication: Other hyperlipidemia On: :53 Request LIPID PANEL (20297)Indication: Other hyperlipidemia On: :53 Request CBC with auto diff (54541)Indication: Impaired fasting glucose On: :53 Request HGB A1C (65136)Indication: Impaired fasting glucose On: :53 Request URINALYSIS (07213)Indication: Hematuria, microscopic On: 21-Hrq-93328:05 Request CALCIFEDIOL (34973)Indication: Secondary hyperparathyroidism On: :36 Request PARATHORMONE (05225)Indication: Secondary hyperparathyroidism On: 85-Apn-234645:36 Request TSH (41102)Indication: Impaired fasting glucose On: 10-Fvk-270035:36 Request URINALYSIS, W/ MICRO (24841)Indication: Impaired fasting glucose On: 40-Yry-402589:36 Request MICROALBUMIN: CREATININE RATIO (53939) AND (00398)Indication: Impaired fasting glucose On: 49-Emx-757288:36 Request METABOLIC PANEL, COMPREHENSIVE (56482)Indication: Impaired fasting glucose On: 73-Cee-755221:36 Request LIPID PANEL (32467)Indication: Impaired fasting glucose On: 03-Txz-057546:36 Request CBC W/AUTO DIFF WBC (21041)Indication: Impaired fasting glucose On: 00-Pkc-269782:36 Request HGB A1C (47702)Indication: Impaired fasting glucose On: 42-Btp-874636:34 Request TSH (36562)Indication: Impaired fasting glucose On: 13-Ogv-321504:34 Request URINALYSIS, W/ MICRO (74178)Indication: Impaired fasting glucose On: 37-Aty-727654:34 Request MICROALBUMIN: CREATININE RATIO (83637) AND ([id number])Indication: Impaired fasting glucose On: 09-Ezw-327674:34 Request METABOLIC PANEL, COMPREHENSIVE (72565)Indication: Impaired fasting glucose On: 98-Omn-576784:34 Request LIPID PANEL (76555)Indication: Other hyperlipidemia On: 80-Msh-167728:34 Request CBC W/AUTO DIFF WBC ([id number])Indication: Impaired fasting glucose On: 87-Xeb-283438:34 Request PARATHORMONE ([id number])Indication: Secondary hyperparathyroidism On: :47 Request METABOLIC PANEL, COMPREHENSIVE (07032)Indication: Impaired fasting glucose On: :46 Request LIPID PANEL (09134)Indication: Other hyperlipidemia On: :46 Request Vitamin D Hydroxy (56399)Indication: Secondary hyperparathyroidism On: :46 Request HGB A1C (97322)Indication: Impaired fasting glucose On: :45 Request Vitamin D Hydroxy (01369)Indication: Osteoporosis On: 4-Oic-874592:45 Request PARATHORMONE (77160)Indication: Secondary hyperparathyroidism On: 65-Qug-415310:16 Request LIPID PANEL (00939)Indication: Secondary hyperparathyroidism On: 51-Ycp-780607:16 Request METABOLIC PANEL, COMPREHENSIVE (52637)Indication: Secondary hyperparathyroidism On: 53-Bip-236247:16 Request LIPID PANEL (49929)Indication: Other hyperlipidemia On: 39-Bux-003033:16 Request LIPID PANEL (67759)Indication: Other hyperlipidemia On: 2-Cxl-681998:35 Request METABOLIC PANEL, COMPREHENSIVE (47080)Indication: Osteoporosis On: 2-Apd-622481:34 Request Vitamin D Hydroxy (88003)Indication: Impaired Fasting Glucose (Renamed from Elevated fasting blood sugar) On: 2-Xez-223787:34 Request PARATHORMONE ([id number])Indication: Secondary hyperparathyroidism On: 3-Iel-261589:34 Request CBC W/AUTO DIFF WBC (89265)Indication: Other hyperlipidemia On: :07 Request METABOLIC PANEL, COMPREHENSIVE (61160)Indication: Other hyperlipidemia On: 4-Rxu-060871:07 Request LIPID PANEL (00342)Indication: Other hyperlipidemia On: 8-Nif-341100:04 Request MICROALBUMIN: CREATININE RATIO (44742) AND (44927)Indication: Impaired Fasting Glucose (Renamed from Elevated fasting blood sugar) On: 3-Jmk-328359:04 Request URINE CALCIUM DARYL TIMED 24 Hour (89409)Indication: Osteoporosis On: :54 Request Vitamin D Hydroxy (56839)Indication: Osteoporosis On: :51 Request TSH (99462)Indication: Osteoporosis On: :51 Request SED RATE ERYTHROCYTE (46864)Indication: Osteoporosis On: :51 Request PHOSPHORUS ([id number])Indication: Osteoporosis On: :51 Request PARATHORMONE ([id number])Indication: Osteoporosis On: :51 Request Planned Encounters Medical; 6 Month FU - On: 20-May-2018 9:45 [facility] Renu Mejia DO, DO, Kathleen Planned Procedures ELECTROCARDIOGRAM, COMPLETE (ECG) On: 14-Nov-2017 Intent ([id number])By: Renu Mejia DO Comments: nsr no acute chg inc small ivcd in v1-- faxed to cardio --Renu kebede DO DEXA SCAN AXIAL SKELETON ([id number])By: On: 07-Jun-2017 Intent Renu Mejia DO, DO, Kathleen PARATHYROID SCAN ([id number])By: Jackie LAKE, On: 28-Jan-2016 Intent Renu Jefferson DO MAMMOGRAM, SCREENING, BOTH BREAST On: 21-Jun-2015 Intent ([id number])By: Gosia Cain DO Breast Ultrasound - LeftBy: Rusty KERR, On: 25-Dec-2014 Intent Kelley M INJECTION, PROLIA ([id number])By: Ant LAKE, On: 14-Dec-2014 Intent Gosia Reyna Comments: lot:[id number]:route:SQdose:prefilled syringeSite:Rgiven by: Elvin Shi CMA MAMMOGRAM, SCREENING, BOTH BREAST On: 18-Aug-2014 Intent ([id number])By: Gosia Cain DO DEXA SCAN AXIAL SKELETON ([id number])By: On: 18-Aug-2014 Intent Gosia Cain DO Planned Medications INJECTION, PROLIA Ordered: 14-Dec-2014 Pending Gosia Cain DO Instructions Name Dates Details BMI 27.0-27.9,adult : How to access health information online Indication: BMI 27.0-27.9,adult BMI 27.0-27.9,adult : How to access health information online - Detail Indication: BMI 27.0-27.9,adult BMI 27.0-27.9,adult : Patient Instructions Indication: BMI 27.0-27.9,adult BMI 27.0-27.9,adult : How to access health information online Indication: BMI 27.0-27.9,adult BMI 27.0-27.9,adult : How to access health information online - Detail Indication: BMI 27.0-27.9,adult BMI 27.0-27.9,adult : Patient Instructions Indication: BMI 27.0-27.9,adult Impaired fasting glucose : How to access health information online Indication: Impaired fasting glucose Impaired fasting glucose : How to access health information online - Detail Indication: Impaired fasting glucose Impaired fasting glucose : Patient Instructions Indication: Impaired fasting glucose BMI 24.0-24.9, adult : How to access health information online Indication: BMI 24.0-24.9, adult BMI 24.0-24.9, adult : How to access health information online - Detail Indication: BMI 24.0-24.9, adult BMI 24.0-24.9, adult : Patient Instructions Indication: BMI 24.0-24.9, adult Current non-smoker : How to access health information online Indication: Current non-smoker Current non-smoker : How to access health information online - Detail Indication: Current non-smoker Current non-smoker : Patient Instructions Indication: Current non-smoker BMI 25.0-25.9,adult : How to access health information online Indication: BMI 25.0-25.9,adult BMI 25.0-25.9,adult : How to access health information online - Detail Indication: BMI 25.0-25.9,adult BMI 25.0-25.9,adult : Patient Instructions Indication: BMI 25.0-25.9,adult BMI 25.0-25.9,adult : How to access health information online Indication: BMI 25.0-25.9,adult BMI 25.0-25.9,adult : How to access health information online - Detail Indication: BMI 25.0-25.9,adult BMI 25.0-25.9,adult : Patient Instructions Indication: BMI 25.0-25.9,adult Current non-smoker : How to access health information online Indication: Current non-smoker Current non-smoker : How to access health information online - Detail Indication: Current non-smoker Current non-smoker : Patient Instructions Indication: Current non-smoker BMI 26.0-26.9,adult : How to access health information online Indication: BMI 26.0-26.9,adult BMI 26.0-26.9,adult : How to access health information online - Detail Indication: BMI 26.0-26.9,adult BMI 26.0-26.9,adult : Patient Instructions Indication: BMI 26.0-26.9,adult BMI 27.0-27.9,adult : How to access health information online Indication: BMI 27.0-27.9,adult BMI 27.0-27.9,adult : How to access health information online - Detail Indication: BMI 27.0-27.9,adult BMI 27.0-27.9,adult : Patient Instructions Indication: BMI 27.0-27.9,adult Current non-smoker : How to access health information online Indication: Current non-smoker Current non-smoker : How to access health information online - Detail Indication: Current non-smoker Current non-smoker : Patient Instructions Indication: Current non-smoker Impaired fasting glucose : Patient Instructions Indication: Impaired fasting glucose Impaired fasting glucose : How to access health information online Indication: Impaired fasting glucose Impaired fasting glucose : How to access health information online - Detail Indication: Impaired fasting glucose Impaired fasting glucose : Patient Instructions Indication: Impaired fasting glucose Impaired fasting glucose : How to access health information online Indication: Impaired fasting glucose Impaired fasting glucose : How to access health information online - Detail Indication: Impaired fasting glucose Impaired fasting glucose : Patient Instructions Indication: Impaired fasting glucose Breast lump on left side at 1 o'clock position : How to access health information online Indication: Breast lump on left side at 1 o'clock position Breast lump on left side at 1 o'clock position : How to access health information online - Detail Indication: Breast lump on left side at 1 o'clock position Breast lump on left side at 1 o'clock position : Patient Instructions Indication: Breast lump on left side at 1 o'clock position Breast lump on left side at 1 o'clock position : How to access health information online Indication: Breast lump on left side at 1 o'clock position Breast lump on left side at 1 o'clock position : How to access health information online - Detail Indication: Breast lump on left side at 1 o'clock position Breast lump on left side at 1 o'clock position : Patient Instructions Indication: Breast lump on left side at 1 o'clock position Other hyperlipidemia : How to access health information online Indication: Other hyperlipidemia Other hyperlipidemia : How to access health information online - Detail Indication: Other hyperlipidemia Other hyperlipidemia : Patient Instructions Indication: Other hyperlipidemia Other hyperlipidemia : Patient Instructions Indication: Other hyperlipidemia Osteoporosis : Patient Instructions Indication: Osteoporosis Encounters Office Visit On: 25-Feb-2018 10:06 Encounter Reason: Follow up ER - Reason for hospitalization note: (acute paricardidtis).Encounter Diagnosis: Non-smoker, BMI 27.0-27.9,adult, Influenza A, Other acute pericarditis End: 25-Feb-2018 10:43 [facility] Office Visit On: 14-Nov-2017 15:52 Encounter Reason: Follow up tests - Date: (11/12/17)., [ADDITIONAL REASON] Follow up for chronic medical issues - The patient feels well with no complaints End: 14-Nov-2017 16:34 , has good energy level and is sleeping well. Patient has been compliant with instructions. Current medication use: no side effects and compliant with dosing regimen. Patient sleeps 7 hours per night. N utrition: balanced diet and no supplemental vitamins & iron. The medical issues the patient is following up for include All identified problems below, blood sugar issues, high blood pressure and high cholesterol. weight :. Encounter Diagnosis: Current non-smoker, BMI 27.0-27.9,adult, Other hyperlipidemia, Nutritional counseling, Impaired fasting glucose, Osteoporosis, Abnormal EKG, Secondary hyperparathyroidism [facility] Phone Encounter On: 26-Oct-2017 16:11 Encounter Diagnosis: Unspecified Diagnosis End: 26-Oct-2017 16:32 [facility] Office Visit On: 07-Jun-2017 7:58 Encounter Reason: Follow up for chronic medical issues - The patient feels well with no complaints, has good energy level and is sleeping poorly. Patient has been compliant with instructions. Current medication use: no s End: 07-Jun-2017 9:07 robbie effects and compliant with dosing regimen. Patient sleeps 7 hours per night. Nutrition: balanced diet and supplemental vitamins. The medical issues the patient is following up for include All identi fied problems below, blood sugar issues, high blood pressure and high cholesterol. weight :.Encounter Diagnosis: Impaired fasting glucose, Current non-smoker, BMI 25.0-25.9,adult, Nutritional counseling, Other hyperlipidemia, Osteoporosis [facility] Office Visit On: 29-Jan-2017 8:16 Encounter Reason: Follow up for chronic medical issues - The patient feels well with no complaints, has good energy level and is sleeping poorly. Patient has been compliant with instructions. Current medication use: no s End: 29-Jan-2017 12:46 robbie effects and compliant with dosing regimen. Patient sleeps 6 hours per night. Nutrition: balanced diet and supplemental vitamins. The medical issues the patient is following up for include All identi fied problems below, blood sugar issues, high blood pressure and high cholesterol., [ADDITIONAL REASON] Follow up tests - Date: (01/26 blood work). Encounter Diagnosis: Current non-smoker, Impaired fasting glucose, Postmenopausal estrogen deficiency , BMI 24.0-24.9, adult, Secondary hyperparathyroidism, Other hyperlipidemia, Nutritional counseling, Hematuria, microscopic, History of ischemic colitis [facility] Office Visit On: 27-Nov-2016 10:18 Encounter Reason: Adipex visit - Exercises 2 times per week. The patient's dietary intake is no fast food, no fried food, no regular soda and restricting calories.Encounter Diagnosis: Current non-smoker, BMI 24.0-24.9, adult, Nutritional counseling, End: 27-Nov-2016 10:39 Impaired fasting glucose, Secondary hyperparathyroidism [facility] Office Visit On: 30-Oct-2016 8:21 Encounter Reason: Adipex visit - Exercises 0 (new job makes it hard) times per week. The patient's dietary intake is no fast food, no fried food and no regular soda.Encounter Diagnosis: Current non-smoker, BMI 25.0-25.9,adult, End: 30-Oct-2016 9:02 Impaired fasting glucose, Nutritional counseling [facility] Office Visit On: 05-Oct-2016 9:33 Encounter Reason: Adipex visit - Exercises 0 times per week. The patient's dietary intake is no regular soda and restricting calories.Encounter Diagnosis: BMI 25.0-25.9,adult, Impaired fasting glucose, Current non-smoker, Other hyperlipidemia End: 05-Oct-2016 9:59 [facility] Office Visit On: 14-Sep-2016 8:47 Encounter Reason: Adipex visitEncounter Diagnosis: BMI 27.0-27.9,adult, Current non-smoker, Impaired fasting glucose, Nutritional counseling End: 14-Sep-2016 9:30 [facility] Office Visit On: 12-Jul-2016 15:53 Encounter Reason: Follow up tests - Date: (07/07/16 labs)., [ADDITIONAL REASON] Follow up for chronic medical issues - The patient feels well with minor complai End: 12-Jul-2016 16:37 nts, has good energy level and is sleeping well. Patient has been compliant with instructions. Current medication use: no side effects and compliant with dosing regimen. Patient sleeps 8 hours per night . Nutrition: balanced diet and supplemental vitamins. The medical issues the patient is following up for include All identified problems below, blood sugar issues, high blood pressure and high cholesterol. Encounter Diagnosis: Current non-smoker, BMI 26.0-26.9,adult, Impaired fasting glucose, Other hyperlipidemia, Secondary hyperparathyroidism, Osteoporosis [facility] Office Visit On: 03-May-2016 15:02 Encounter Reason: Adipex visit - The patient's dietary intake is no fast food, no fried food, no regular soda and restricting calories., [ADDITIONAL REASON] Cough - No changes in management were made at the last visit. Symptoms include c End: 03-May-2016 15:35 ough. The cough is described as hacking and productive. Cough onset was 10 day(s) ago. There is no known event that preceded symptom onset. The cough occurs constantly. Symptoms are described as moderate in severity and unchanged. Encounter Diagnosis: Current non-smoker, BMI 27.0-27.9,adult, Impaired fasting glucose, Cough, Bronchitis, Other hyperlipidemia [facility] Office Visit On: 27-Mar-2016 16:12 Encounter Reason: Adipex visit - Exercises 2 times per week. The patient's dietary intake is no fast food, no fried food, no regular soda and restricting calories.Encounter Diagnosis: Current non-smoker, BMI 28.0-28.9,adult, Impaired fasting glucose End: 27-Mar-2016 18:05 , Other hyperlipidemia [facility] Office Visit On: 21-Feb-2016 15:28 Encounter Reason: Adipex visit - Exercises 3 times per week. The patient's dietary intake is no fast food, no fried food, no regular soda and restricting calories. 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 Patient has been compliant with instructions. Current medication use: no End: 24-Jan-2016 17:38 side effects and compliant with dosing regimen. Patient sleeps 8 hours per night. Nutrition: balanced diet and supplemental vitamins. The medical issues the patient is following up for include All ident ified problems below, blood sugar issues and osteoporosis/osteopenia., [ADDITIONAL REASON] Follow up tests - Date: (12/22/15). Encounter Diagnosis: Impaired fasting glucose, Other hyperlipidemia, Secondary hyperparathyroidism, Osteoporosis, Postmenopausal estrogen deficiency [facility] Office Visit On: 21-Jun-2015 16:36 Encounter Reason: Follow up for chronic medical issues - The patient feels well with minor complaints (cold sx), has good energy level and is sleeping well. Patient has been compliant with instructions. Current medicatio End: 21-Jun-2015 22:06 n use: no side effects. Patient sleeps 7 hours per night. Nutrition: balanced diet. The medical issues the patient is following up for include All identified problems below, blood sugar issues, hypothyr oid and osteoporosis/osteopenia. Note for Follow up for chronic medical issues: tolerating prolia- she had gone off consistent vit d until recent and so pth up again- had got off exercise regimen, [ADDITIONAL REASON] Cough - The onset of the cough has been sudden. The cough is characterized as productive of mucoid sputum. The amount of sputum produced is scanty. The cough occurs mainly at night . The symptoms have been associated with hoarseness, while the symptoms have not been associated with dyspnea, fever, headache, runny nose, sore throat or wheezing. Note for Cough : just been a day or two , [ADDITIONAL REASON] Follow up tests - Date: (06/21/15- in scanned documents). Encounter Diagnosis: Impaired fasting glucose, Osteoporosis, Secondary hyperparathyroidism, Other hyperlipidemia, Encounter for screening mammogram for breast cancer (Renamed from Encounter for screening mammogram for malignant neoplasm of breast), Upper respiratory infection [facility] Office Visit On: 18-Jan-2015 15:29 Encounter Reason: Follow up acute care visit - The patient feeling better since last seen and improving. Patient has been compliant with instructions. Current medication use: no side effects, compliant with dosing regime End: 18-Jan-2015 16:04 n and considered effective by patient. Patient sleeps 7 hours per night. Impact of disease: emotional impact-mild. Nutrition: balanced diet and supplemental vitamins. The medical issues the patient is f ollowing up for include other (left breast lump ).Encounter Diagnosis: Breast lump on left side at 1 o'clock position [facility] Office Visit On: 25-Dec-2014 9:28 Encounter Diagnosis: Breast lump on left side at 1 o'clock position End: 25-Dec-2014 10:12 [facility] Office Visit On: 14-Dec-2014 16:08 Encounter Reason: Follow up tests - Date: (09.14.2014)., [ADDITIONAL REASON] Follow up for chronic medical issues - The patient feels well with minor complai End: 14-Dec-2014 22:23 nts (weight issues), has good energy level and is sleeping well. Patient has been compliant with instructions. Current medication use: no side effects. Patient sleeps 7 hours per night. Nutrition: chelsea kacie diet. Note for Follow up for chronic medical issues: vit d better - and tolerating prolia- -discussed diet and ex in detail- and standard process cleanse Encounter Diagnosis: Hyperlipidemia (272.4), Osteoporosis (733.00), Secondary hyperparathyroidism [facility] Office Visit On: 14-Sep-2014 15:55 Encounter Reason: Follow up tests - Diagnostic tests include mammography and other (labs and bone dexa). Date: (08/2014- in scanned documents). Note for Discuss procedure results: due for prolia- last bone dnesity no ch End: 14-Sep-2014 20:46 anastasia but vit d deficient and secondary hyperpara- not taking calcium she starting to work out 3 days a weekEncounter Diagnosis: Hyperlipidemia (272.4), Osteoporosis (733.00), Impaired Fasting Glucose (Renamed from Elevated fasting blood sugar), Secondary hyperparathyroidism [facility] Office Visit On: 18-Aug-2014 14:27 Encounter Reason: Transition into care - The patient is transitioning into care from another physician and a summary of care was reviewed ., [ADDITIONAL REASON] new patient female physical - General health: feels well with minor complaints ( End: 21-Aug-2014 12:02 walk about blood sugars), has good energy level (sometimes not) and is sleeping well. The patient's appetite is increased. Nutrition: normal/adequate. Exercises 2 days per week. Sleeps on average 7 hour s per night. Normal bowel and bladder habits. Safety measures include appropriate use of safety belts and home smoke detectors. There are no current emotional problems. screening, colonoscopy (2007?), s creening, mammography (2012), screening, Pap smear (years ago- had total hyster) and screening, visual acuity (2014). Note for Physical exam: had hysterectomy age 26- for endometriosis- and kept left ovary but removed 2003-- and was on lupron , [ADDITIONAL REASON] Blood Sugars - Pt had eye exam and has noticed significant changes in sight so eye dr suggested her to monitor her sugars which she has been and they have been running in the low 10 0's fasting in am. A1c was 5.5 and dietican at [facility] suggested her to monitor it also.- has gained 10 pounds in last year - she feels like she is a food a holic- she started at [employer] last week Encounter Diagnosis: Osteoporosis (733.00), Impaired Fasting Glucose (Renamed from Elevated fasting blood sugar), Hyperlipidemia (272.4), screening [facility]; sami guarantor
--- OUTSIDE RECORDS SUMMARY | 2018-05-14 12:12 | XMS RPT_ITS | Continuity of Care Document ---
:1970 Author Organization [facility] Address [facility] [address] Phone Care Team Providers Name Role Phone JackieRenu chang DO Unavailable Fast Gosia LAKE Unavailable Gravius, Lulu Unavailable Unavailable Messenger, MANAGER STYLE Cammy Unavailable Unavailable Mannatalyk Nadeen Unavailable Unavailable Long MANAGER STYLE, Meghan L Unavailable Unavailable Unavailable Unavailable Problems Name Dates [...] Active Deliveries (Parity) Comments: 2. Status: Active Elevated liver function tests (R94.5, 790.6) Status: Active Encounter for screening mammogram for [...] Postmenopausal estrogen deficiency (Z78.0, V49.81) Comments: s/p [facility] 12/30 Status: Active Pregnancies () Comments: 2. Status: Active Unspecified Diagnosis Status: Active Unspecified Diagnosis Status: Active Unspecified [...] days Quantity: 1 {Milliliter} Refills: 1 Ordered:07-Jun-2017 Jackie LAKE DianaCristian Renu Start : 07-Jun-2017 Active Vitamin D3 5000 UNIT Oral Capsule 1 (one) Capsule qd for 0 days Quantity: 30 {Capsule} Refills: 11 Ordered:20-Mar-2017 Jackie LAKE DianaCristian Renu Start : 20-Mar-2017 Active Adipex-P 37.5 MG [...] Start : 25-Dec-2014 End : 18-Jan-2015 Inactive PredniSONE 5 MG Oral Tablet 1 (one) Tablet uad titrating down for 15 days Quantity: 30 {Tablet} Refills: 0 Ordered:12-Mar-2018 Meghan Hammond LPN Start : 12-Mar-2018 End : 27-Mar-2018 Inactive Comments:3 tablets qd x 5 days, 2 tablets qd x 5 days and 1 tablet qd x 5 days. Zithromax Z-Jerardo 250 MG Oral Tablet tad [...] Completed Hysterectomy; Total Completed Date Value Details 28-Mar-2018 Cardiology Visit Report Result: Comments: See Note; NOTES: [facility] [address] [place] [address]. [address] [place] [address] OFFICE VISIT Date of Service: 03/28/18 MR#: [id number] Acct: [id number] Name: LIV HEDRICK Rep #: [id number] : 1970 Provider: Cody Lomas MD Age/Sex: 47/F [place] [facility] [place]: Signed HPI HPI Details: LIV HEDRICK, is a 47 F who pre sents to the office today for Outpatient cardiovascular followup for concerns of acute pericarditis. As you recall she was originally evaluated on 02/22/2018 [facility] and was found to have concerns of post in fluenza a virus related acute pericarditis. She was evaluated noninvasively including a transthoracic echocardiogram. She has resided in the hospital overnight initiating anti-inflammatory therapy, colc hicine therapy, etc. She had symptomatically improved by the next day and was released home. She states she continued to improve until approximately 03/04/2018. At that time she states she had a relapse and became very symptomatic again. She presented back to the emergency department. She was reassessed. She continued on her previous therapy and was placed on corticosteroid therapy as well. Since that time she has had overall improvement. She is now on her anti-inflammatory therapy, her colchicine therapy, as well as a corticosteroid taper. During her recent emergency department evaluation she also had a chest CT scan which demonstrated no obvious cardiopulmonary disease/great vessel disease. She states otherwise she has been doing well with no other acute symptoms or adverse events. She has retu rned to work. She is not scheduled for any other obvious upcoming diagnostic studies are therapeutic interventions. She did have a followup ECG in the office today. She was noted to be in sinus rhythm. She had a subtle nonspecific ST/T-wave abnormality. These findings appear to be less impressive than her previous emergency department evaluation. There were no other new acute findings. Intake Vital Signs03/28/18 Body Mass Index (BMI) 28.3 03/28/18 Height 5 ft 2 in 03/28/18 Weight: 158 lb 03/28/18 Body Mass Index (BMI) 28.9 03/28/18 Blood Pressure 116/76 Intake Visit Reasons: Pericarditis Allerg ies meperidine [From Demerol] Adverse Reaction (Verified 03/28/18 15:39) Vomiting Medications cholecalciferol (vitamin D3) 1,000 unit capsule 1,000 unit PO DAILY 02/04/18 [History Confirmed 03/28/18 ] estradiol 4 mcg vaginal insert 0.5 mcg TRANSDERM. QWEEK 02/04/18 [History Confirmed 03/28/18] Famotidine [Pepcid] 20 mg PO BID #60 tab 02/23/18 [Rx Confirmed 03/28/18] Ibuprofen 600 mg PO TID #90 tab 02/23/18 [Rx Confirmed 03/28/18] Prednisone 10 mg PO UD #33 tab 03/04/18 [Rx Confirmed 03/28/18] colchicine 0.6 mg tablet 0.6 mg PO BID #60 tab 03/28/18 [Rx Confirmed 03/28/18] PFSH Surgical History H/O oophorectomy (Acute) History of cholecystectomy (Acute) History of hysterectomy (Acute) Hx of appendectomy (Acute) Family History (Reviewed 8 @ 15:40 by Peyton Bain) Other Diabetes Hypertension Leukemia Social History Smoking Status: Never smoker alcohol intake: current alcohol intake frequency: holidays/special occasions only R OS Const Const: Negative for fatigue, weakness, weight gain, weight loss, frequent falls or excessive sweating Eyes Eyes: Negative for change in vision, blurry vision or transient loss of vision ENT ENT : Negative for dizziness or balance problems Cardio Chest Pain: Yes Character: dull (when laying down) Location: other (under left breast area, tender to touch) Palpitations: Yes feels like its: other ( flip) Edema: None Muscle aches with walking: None Resp Respiratory: Positive for Cough (dry cough precipitated by cp); negative for SOB with activity or SOB at rest GI GI: Negative vomiting or vomiting blood/hematemesis : Negative for hematuria Musc Musc: Negative for balance problems, muscle aches/ myalgia, muscle weakness or joint pain Skin Skin: Negative non-healing lesions or rash Neuro Neuro : Negative for weakness, blurry vision, dizziness, lightheadedness, frequent falls or orthostatic symptoms Rayo Hematologic/Lymphatic: Negative for easy bleeding Endo Endo: Negative for fatigue or exces sive sweating Psych Psych: Negative for anxiety or depression Allergy Allergy/Immunology: Negative for hives, Negative for rash Cardiology Exam Const Appearance: cooperative, healthy appearing, comfor table, no acute distress, well developed and well groomed Nutritional Appearance: overweight Orientation: alert, awake and oriented x3 Limitations: altered mental status Head Head: normal to inspection, normocephalic and atraumatic Ears: hearing grossly normal bilaterally Nose: external nose normal Face and Sinus: face symmetric Mouth: oral mucosae normal Teeth and gingiva: fair dentition Eyes Eyelids : eyelids normal Conjunctivae: conjunctivae normal Pupils: PERRL EOM: EOM intact bilaterally Neck Neck: normal visual inspection Carotids: normal carotid upstroke Chest Chest inspection: normal inspecti on of the chest and symmetric chest movement Auscultation: Bilateral: Clear to Auscultation Cardio Palpation: normal PMI Rate: regular rate Rhythm: regular rhythm Heart sounds: S1 normal and S2 normal G I GI: normal to inspection, bowel sounds present and soft Neuro General: alert, awake and oriented x3 Skin Skin: no rashes or lesions noted Extremities Pulses: Normal: Right Radial Pulse, Left Radial Pu lse Lower Extremity Edema: None: Bilateral Psych Psychological: normal affect Assessment AND Plan 1. Precordial pain R07.2 Plan At the present time her chest discomfort appears to be improving and placido rly resolved. She will continue her current medical therapy. She is tapering off her corticosteroid therapy. She will eventually taper off her nonsteroidal anti-inflammatory therapy. She will continue h er colchicine therapy for a period of approximately 3 months. 2. 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 She will continue her medical manag ement as described above. She will be followed for any other relapses or concerns. 3. Influenza A J10.1 Plan She did have influenza a parent her acute pericarditis occurred following that event. This i s thought it was related to her previous bilateral related illness. She does appear to be symptomatically improved. She will continue her medication adjustments as described above. She will continue w [facility] outpatient followup. Plan Detail Other Orders Orders: Other Medications Refilled: Additional Comments Thank you for allowing me to participate in the care of your patient. Please don't hesitate to call if any issues arise. This note was generated using a voice recognition system and there may be incorrect words, spelling or punctuation that were not noted when reviewing the office note prior to saving. Follow Up 3 Months (PFM) Coding Level of Care Code Off vis,est,level 3 Diagnoses Precordial pain R07.2 Chest pain type: precordial pain Acute idiopathic pericarditis I30.0 Pericarditis type: idiopathic Influenza A J10.1 Coding Level of Care Code Off vis,est,level 3 Diagnoses Precordial pain R07.2 Chest pain type: precordial pain Acute idiopathic pericarditis I30.0 Pericarditis type: idi opathic Influenza A J10.1 03/28/18 1723 <Electronically signed by Cody Lomas MD> Date Cody Lomas MD Cosigner Signature: Jan cruz (if applicable) CC: Renu Mejia DO 28-Mar-2018 12 Lead EKG performed by [facility] Result: Comments: See Note; NOTES: [facility] [address] [place] [address] 12 Lead EKG performed by [facility] [place] 03/28/18 1538 MR#: [id number] Acct: [id number] Name: LIV HEDRICK Rep #: [id number] : 1970 47 From: Cody Lomas MD Attending Dr: Cody Lomas MD Status: DEP AMB Ordering Dr: Cody Lomas MD Date: 03/28/18 [place] [facility] [place] Sex: F C Admitted: BMS/12 Lead EKG performed by [facility] [place] ECG Report Interpretation Sinus Rhythm Subtle nonspecific ST/T wave abnormalityElectronically signed on 03/28/2018 at 17: 58 by Cody Lomas [employer] Version 8610 03/28/18 1800 Date Cody Lomas MD CC: Renu Mejia DO Date Dictated: 03/28/181537 Date Transcribed: 03/28/181537 Precision Grinder: PM Signed 15-Mar-2018 12 Lead Electrocardiogram Result: Comments: See Note; NOTES: [facility] Cardiovascular Services [address] [place] [address] 12 Lead EKG 03/04/18 1033 MR#: [id number] Acct: [id number] Name: LIV HEDRICK Mouna ep #: [id number] : 1970 47 From: Edi Alfred MD Attending Dr: Status: DEP ER Ordering Dr: Miky Gibson MD Date: 03/04/18 Location: ED Sex: F C Admitted: Test Reason : CHEST PAIN Blood Pressu re : / mmHG Vent. Rate : 083 BPM Atrial Rate : 083 BPM P-R Int : 128 ms QRS Dur : 086 ms QT Int : 364 ms P-R-T Axes : 077 084 069 degrees QTc Int : 427 ms Normal sinus rhythm Nonspecific ST abnor mality Abnormal ECG Confirmed by EDI ALFRED MD ([id number]), newspaper photo editor OZZIE HESS ([id number]) on 03/06/2018 11:14:41 AM Referred By: Miky Gibson Confirmed By:EDI ALFRED MD 03/06/18 1114 Date __ Edi Alfred MD CC: Renu Mejia DO; Miky Gibson MD Signed 05-Mar-2018 Echocardiogram, Limited Study Result: Comments: See Note; NOTES: [facility] Cardiovascular Services [address] [place] [address] Echo, Limited Study 03/05/18 1100 MR#: [id number] Acct: [id number] Name: PITO HEDRICK Rep #: [id number] : 1970 47 From: Edi Alfred MD Attending Dr: Renu Mejia DO Status: REG CLI Ordering Dr: Renu Mejia DO Date: 03/05/18 Location: [facility] Sex: F C Admitted: [facility] For Study: Acute pericarditis Procedure This was a limited 2D transthoracic echocardiogram. Exam performed in department. Left Ventricle Normal LV size. Left ventricular systolic function is normal. The estimated ejection fraction is 60 %. No regional wall motion abnormalities noted. Right Ventricle Normal RV size. Normal systolic function. Mitral Valve Normal mitral valve. Pericardium/Pleural No pericardial effusion. MMode/2D Measurements AND Calculations LVIDd: 3.7 cm IVSd: 0.89 cm Ao root diam: 3.3 cm LVIDs: 2.2 cm LVPWd: 0.89 cm FS: 39.9 % LA dimension(2D): 2.5 cm Interpretation Summary Normal LV size. Left ventricular systolic function is normal. The estimated ejection fraction is 60 %. No pericardial effusion. Ordering Physician: Renu Mejia Referring Physician: Renu Mejia Performed By: Virginia Galeano RDCS 03/05/18 1535 Date Edi Alfred MD CC: Renu Mejia DO Date Dictated: 03/05/18 1100 Date Transcribed: 03/05/18 1535 Precision Grinder: Signed 04-Mar-2018 Emergency Department Summary Result: Comments: See Note; NOTES: [facility] Medical Records Department [address] [place] [address] Emergency Department Summary 03/04/18 1107 MR#: [id number] Acct: [id number] Name: LIV HEDRICK Rep #: [id number] : 1970 47 From: Miky Gibson MD PCP: Renu Mejia DO Status: DEP ER - ER Visit Summary Date of Service: 03/04/18 Chief Complaint: Chest pain History of Present Illness: The patient is a 47 F presents to the emergency department with worsening chest pain. Patient was actually seen and evaluated about a week ago. At that time, she was admitted for lik viky pericarditis. The patient underwent echocardiogram which was unremarkable. She was started on colchicine and anti-inflammatories. She states that she was doing well until about 24 hours ago. States the pain is worsened. Where before, she was able to sit up and the pain would resolve, but she states now any sort of movement hurts. She is also been more short of breath. The pain does not radiate int o her neck or her arm. She denies any history of coronary vascular disease. Physical Examination: Vital signs reviewed General: Well-nourished, well-developed Head: Normocephalic, atraumatic Eyes: Pupi ls equal and reactive, extraocular muscles intact Neck, supple, no lymphadenopathy Heart: Regular rate and rhythm Respiratory: No distress, clear bilaterally Abdomen: Soft, nontender, nondistended, no p eritoneal signs Back: Nontender Extremities: Nontender, no edema, no cords Skin: Normal color no rash Neuro: Alert and oriented, no focal or lateralizing deficits Test Results: [] Emergency Department Course and Treatment: The patient presents with worsening left-sided chest pain. She states that she is actually doing very well for the past week. The pain actually worsened over the past 24 hours. EK G was obtained which did show some inferior lateral ST depression that had mildly worsened since her prior EKG. I reviewed these with Dr. Alfred who thought that this was likely secondary to their normal progression of pericarditis. Patient's cardiac enzymes are normal. She has had constant pain for 24 hours. She has no risk factors for coronary vascular disease. I do not feel that her symptoms are con sistent with acute coronary syndrome. I did obtain a CTA given her positional pain and dyspnea. This shows no pulmonary embolus. There is no dissection. There is no large pericardial effusion. On reeval uation after 2 mg of morphine, the patient is markedly improved. She declined Toradol. She was given Solu-Medrol. Patient be placed on a short burst of prednisone and analgesics. At this time, I do feel that she is safe for outpatient follow-up. Treatment Plan: [] Disposition: Discharge Impression: Chest pain with history of pericarditis This note was generated with [employer] dictation software. It may contain incorrect words, spelling, and punctuation that were not noted in review of the chart prior to signing ED Disposition - Plan for ED Patient: Chief Complaint: Chest Pain Instructions: ED Chest Pain Pericarditis Prescriptions: Hydrocodone Bitart/Apap 5-325 [Mcgregor 5MG- 325MG] 1 tab PO Q6H PRN PRN 3 Days #10 tab PRN Reason: Pain Prednisone 10 mg PO UD #33 tab Referrals: Renu Mejia DO [Primary Care Provider] - What to do if you have Problems For any increased pain, shortness of breath, bleeding, nausea or vomiting, chest pain, or any unexpected problems, contact your Primary Care Provider. Call [facility] ([phone]) or report to the closest Emergency Room. Call 911 if necessary. 03/04/18 1422 <Electronically signed by Miky Gibson MD> Date ___ Miky Gibson MD Cosigner Signature (If Indicated): Date CC: Renu Mejia DO 04-Mar-2018 Chest 1 View (Portable) Result: Comments: See Note; NOTES: [facility] Imaging Services [address] [place] [address] Chest 1 View (Portable) MR#: [id number] Acct: [id number] Name: LIV HEDRICK Rep #: [id number] : 1970 F 47 From: Gauri Brooke MD PCP: Renu Mejia DO Status: DEP ER Study: Chest 1 View (Portable) Date of Exam: 03/04/18 Exam# [id number] Ordering Dr: Miky Gibson MD STUDY: X-RAY CHEST REASON FOR EXAM: Female, 47 years old. Chest pain, diagnosed with pericarditis recently, improved but worse today. Shortness of breath and pain TECHNIQUE: Single AP portable view of the ch est. COMPARISON: 02/22/2018. CTA chest 03/04/2018. FINDINGS: The lungs are clear and expanded. There is no demonstrated pleural abnormality. Normal size heart. Nor mal mediastinum and mary grace. Normal visualized pulmonary arteries. Normal visualized aortic arch and descending thoracic aorta. Normal visualized thoracic spine. Normal visualized ribs, clavicles, and gauri ulders. There is no demonstrated abnormality of the visualized soft tissue structures of the upper abdomen. RAD/Chest 1 View (Portable) IMPRESSI ON: No acute cardiopulmonary disease. No significant interval change. Electronically Signed: Gauri Brooke MD at 3:31 EST , Service support , Fax CC: Renu Mejia DO; Miky Gibson MD Precision Grinder: Signed 04-Mar-2018 CTA Chest W/WO Contrast Result: Comments: See Note; NOTES: [facility] Imaging Services [address] [place] [address] CTA Chest W/WO Contrast MR#: [id number] Acct: [id number] Name: LIV HEDRICK Rep #: [id number] : 1970 F 47 From: Leroy Aj MD PCP: Renu Mejia DO Status: REG ER Study: CTA Chest W/WO Contrast Date of Exam: 03/04/18 Exam# [id number] Ordering Dr: Miky Gibson MD [facility] DY: CTA CHEST REASON FOR EXAM: Female, 47 years old. Chest pain. Pericarditis. Left-sided chest pain. RADIATION DOSAGE (If Supplied By Facility): CTDIvol = ( 9.87 ) mGy, DLP = ( 334.46 ) mGycm TECHNI QUE: The examination was performed with the intravenous administration of 75 ml of Isovue 370 contrast material. Post-processing of the angiographic images was performed, with multiplanar reformation an d 3D reconstruction. Individualized dose optimization techniques were used for this CT. COMPARISON: None. FINDINGS: Normal enhancement of the main pulmonary arter y and right and left pulmonary arteries. Normal enhancement of the bilateral peripheral pulmonary arteries. There is no demonstrated pulmonary embolism. Normal thoracic aorta and visualized great vesse ls. There is no demonstrated aortic dissection. Normal heart and pericardium. Normal mediastinum. Normal hilar regions. Normal visualized trachea and bronchi. The lungs are well expanded. Elevation of the right hemidiaphragm. Normal pulmonary parenchyma. Normal pleura. Normal chest wall structures. Normal osseous structures. Normal visualized upper abdomen. CT/CTA Chest W/WO Contrast IMPRESSION: Normal CTA chest examination, without a demonstrated pulmonary embolism or arterial dissection. Electronically Signed: Mamta Douglas at 12:32 EST Tel [phone], Service support , CC: Renu Mejia DO; Miyk Gibson MD Precision Grinder: Signed 22-Feb-2018 Emergency Department Summary Result: Comments: See Note; NOTES: [facility] Medical Records Department [address] [place] [address] Emergency Department Summary 02/22/18 1217 MR#: [id number] Acct: [id number] Name: LIV HEDRICK Rep #: [id number] : 1970 47 From: Garett Anderson MD [...] compared to EKG from 9 years ago. MI interval normal. QRS duration normal. QT interval is prolonged. [place] is normal. CBC unremarkable. Troponin normal. ESR 10. Transt horacic echo was obtained and revealed no effusion. Left ejection fraction normal. Emergency Department Course and Treatment: Workup for pericarditis, pneumonia, myocarditis. Consulted Dr. Lomas. Kelley Lomas requested admission for pain management. He requested 30 Hess grams Toradol in the emergency department and for the hospital to start indomethacin and colchicine on the unit. Treatment P wai: Anti-inflammatory and colchicine Disposition: Medical surge unit telemetry Impression: Acute pericarditis Recent diagnosis of influenza A This note was generated with [employer] dictation software . It may contain incorrect words, spelling, and punctuation that were not noted in review of the chart prior to signing ED Disposition - Plan for ED Patient: Chief Complaint: Chest Other Referrals: F Renu cotto, DO [Primary Care Provider] - What to do if you have Problems For any increased pain, shortness of breath, bleeding, nausea or vomiting, chest pain, or any unexpected problems, contac t your Primary Care Provider. Call [facility] ([phone]) or report to the closest Emergency Room. Call 911 if necessary. 02/22/18 1222 <Electronically signed by Garett Anderson MD> Date Garett Anderson MD Cosigner Signature (If Indicated): Date CC: Renu Mejia DO; Cody Lomas MD 22-Feb-2018 Echocardiogram Complete Result: Comments: See Note; NOTES: [facility] Cardiovascular Services [address] [place] [address] Echo Complete 02/22/18 1020 MR#: [id number] Acct: [id number] Name: LIV HEDRICK Rep #: [id number] : 1970 47 From: Cody Lomas MD [...] annular calcification. Normal mitral valve. Tricuspid Valve Sarah l tricuspid valve. Trivial tricuspid valve insufficiency. [...] Physician: Garett Anderson Performed By: Virginia Galeano [facility] 02/22/18 1202 Date Cody Lomas MD CC: Renu Mejia DO; Garett Anderson MD Date Dictated: 02/22/18 1020 Date Transcribed: 02/22/18 1202 Precision Grinder: Signed 22-Feb-2018 Chest PA and Lateral Result: Comments: See Note; NOTES: [facility] Imaging Services [address] [place] [address] Chest PA and Lateral MR#: [id number] Acct: [id number] Name: LIV HEDRICK Rep #: [id number] : 1970 F 47 From: Leroy Aj MD PCP: Renu Mejia DO Status: PRE ER Study: Chest PA and Lateral Date of Exam: 02/22/18 Exam# [id number] Ordering Dr: Garett Anderson MD STUDY: X-RAY [...] Leroy Aj MD at 9:14 EST Tel [phone], Service support , CC: Renu Mejia DO; Garett Anderson MD Precision Grinder: Signed 04-Feb-2018 Urgent Care Visit Report Result: Comments: See Note; NOTES: [facility] [address] [place] [address] OFFICE VISIT Date of Service: 02/04/18 MR#: [id number] Acct: [id number] Name: LIV HEDRICK ep #: [id number] : 1970 Provider: Yoan FORTE Age/Sex: 47/F Location[place] [facility] [place] Status: Signed Intake Vital Signs02/04/18 Height 5 [...] is a non-smoker. She has taken no sjpf-xsc-nilamdj products to assist with her symptoms. She [...] ab ove. This note was generated with Meeting To Youation software. It may contain incorrect words, spelling, and punctuation that were not noted in checking the note before signing. Orders Orders: Medicati ons New: Coding Level of Care Code Off vis,new,level 3 Diagnoses Influenza A J10.1 02/04/18 1414 <Electronically signed by Yoan FORTE> Date Yoan FORTE Cosigner Signature: Date (if applicable) CC: 28-Jun-2017 Dexa Bone Density Study (HP) Result: Comments: See Note; NOTES: [facility] Imaging Services [address] [place] [address] Dexa Bone Density Study () MR#: [id number] Acct: [id number] Name: HEDRICKLIV Sherie Rep # : [id number] : 1970 F 46 From: Leroy Aj MD PCP: Status: REG CLI Study: Dexa Bone Density Study () Date of Exam: 06/28/17 Exam# [id number] Ordering Dr: Renu Mejia DO STUDY: DU [...] Leroy Aj MD at 10:50 EDT Tel [phone], Service support , CC: Renu Mejia DO Precision Grinder: Signed Family History Unknown Family Member Name Dates Details Father Comments: living aml and dm - had stem cell transplant Status: Active Mother Comments: mother living - dm Status: Active Social History Name Dates Details Alcohol Use: Occasional alcohol use. Status: Active Caffeine Use Comments: 1 cup qd Status: Active Current Work/Study Status Comments: [employer] [facility] Status: Active Living Situation Comments: lives with [...] kg/m2 Body Surface Area Calculated 1.7 m2 64-Wlf-88711:10 Pulse 100 /min Comments: Pattern: Regular Respiration [...] 1.74 m2 Results Date Description Value Details :08 CBC W/Diff, Automated Comments: [facility] [address] [place], [place], [id number] Absolute Lymph 3.51 {X10_3/ul} (Normal) Range: 0.83-4.51 Absolute Neut 3.7 {X10_3/uL} (Normal) Range: 2.0-7.7 IM GRAN % 0.500 % (Normal) Range: 0.0-0.9 Comments: IG% - Immature Granulocytes (promyelocytes, myelocytes andmetamyelocytes) > 1% indicates that a LEFT SHIFT is Present. BASO% 0.8 % (Normal) Range: 0-1 EO% 2.4 % (Normal) Range: 0-5 MONO% 10.3 % (Abnormal) Range: 0-10 LY% 41.9 % (Abnormal) Range: 19-41 NEUT% 44.1 % (Abnormal) Range: 47-70 MPV 12.1 fL (Abnormal) Range: 6.2-12.0 PLT 248 K/mm3 (Normal) Range: 150-450 RDW SD 44.0 fL (Abnormal) Range: 35.1-43.9 RDW CV 13.6 % (Normal) Range: 11.6-14.6 MCHC 33.2 {g/gl} (Normal) Range: 32-36 MCH 29.9 pg (Normal) Range: 27.0-32.0 MCV 90.2 fL (Normal) Range: 81-99 HCT 39.5 % (Normal) Range: 37-47 HGB 13.1 g/dL (Normal) Range: 12.0-15.0 RBC 4.38 {M/mm3} (Normal) Range: 4.2-5.4 WBC 8.4 K/mm3 (Normal) Range: 4.4-11.0 35-Egf-304903:08 Liver Profile Comments: [facility] [address] [place] [address], [address] D BILI 0.12 mg/dL (Normal) Range: 0.00-0.30 T BILI 0.40 mg/dL (Normal) Range: 0.20-1.00 ALT 98 U/L (Abnormal) Range: 13-56 ALK P 109 U/L (Normal) Range: 45-117 AST 53 U/L (Abnormal) Range: 15-37 GLOB 2.8 g/dL (Normal) Range: 2.2-4.2 ALB 3.5 g/dL (Normal) Range: 3.2-5.0 T PROT 6.3 g/dL (Abnormal) Range: 6.4-8.2 41-Egm-671375:47 Miscellaneous Lab Procedure Comments: Comments: SLE [id number] SERUM/RTTest(s) Ordered: [facility] [id number] [facility] [address] [place], [address] [facility] (Normal) Comments: TEST RESULT UNITS REF INTERVALSystemic Lupus Profile BRASSIERE CUP MOLD CUTTER Antibodies 0.3 AI 0.0 - 0.9Smith Antibodies <0.2 AI 0.0 - 0.9RA L TEST atex Turbid. <10.0 IU/mL 0.0 - 13.9Antichromatin Antibodies <0.2 AI 0.0 - 0.9Sjogren's Anti-SS-A <0.2 AI 0.0 - 0.9Sjogren's Anti-SS-B <0.2 AI 0.0 - 0.9Anti-DNA (DS) Ab Qn 1 IU/mL 0 - 9 Negative <5 Equivocal 5 - 9 Positive >9 TESTING PERFORMED AT [facility]. ORIGINAL REPORT ON FILE IN LAB CONTAINS ADDITIONAL TEST SITE INFORMATIO N. 35-Zav-107034:42 ANTINUCLEAR ANTIBODIES DIRECT Comments: [facility] (refer to report for specific site)refer to report for address and phone number TETE-DIRECT Negative (Normal) Comments: Performed at: [address] [id number] Director: Keith Chun PhD, Phone: [phone] 40-Dec-826758:42 CBC W/Diff, Automated Comments: [facility] [address] [place], [address] Absolute Lymph 1.92 {X10_3/ul} (Normal) Range: 0.83-4.51 Absolute Neut 2.2 {X10_3/uL} (Normal) Range: 2.0-7.7 IM GRAN % 0.200 % (Normal) Range: 0.0-0.9 Comments: IG% - Immature Granulocytes (promyelocytes, myelocytes andmetamyelocytes) > 1% indicates that a LEFT SHIFT is Present. BASO% 2.1 % (Abnormal) Range: 0-1 EO% 4.0 % (Normal) Range: 0-5 MONO% 7.4 % (Normal) Range: 0-10 LY% 40.3 % (Normal) Range: 19-41 NEUT% 46.0 % (Abnormal) Range: 47-70 MPV 12.6 fL (Abnormal) Range: 6.2-12.0 PLT 269 K/mm3 (Normal) Range: 150-450 RDW SD 39.9 fL (Normal) Range: 35.1-43.9 RDW CV 12.4 % (Normal) Range: 11.6-14.6 MCHC 33.4 {g/gl} (Normal) Range: 32-36 MCH 29.8 pg (Normal) Range: 27.0-32.0 MCV 89.2 fL (Normal) Range: 81-99 HCT 40.4 % (Normal) Range: 37-47 HGB 13.5 g/dL (Normal) Range: 12.0-15.0 RBC 4.53 {M/mm3} (Normal) Range: 4.2-5.4 WBC 4.8 K/mm3 (Normal) Range: 4.4-11.0 19-Lrd-056038:42 Comprehensive Metabolic Profil Comments: Comments: SLE [id number] [facility] [address] [place], [place], [id number] GAP 10 (Normal) Range: 5-15 CO2 24.0 mmol/L (Normal) Range: 21.0-32.0 CL 106 mmol/L (Normal) Range: 98-107 K 3.7 mmol/L (Normal) Range: 3.5-5.1 NA 140 mmol/L (Normal) Range: 136-145 T BILI 0.40 mg/dL (Normal) Range: 0.20-1.00 ALT 60 U/L (Abnormal) Range: 13-56 ALK P 106 U/L (Normal) Range: 45-117 AST 51 U/L (Abnormal) Range: 15-37 CA 8.7 mg/dL (Normal) Range: 8.5-10.1 A/G 1.2 {RATIO} (Normal) Range: 0.9-2.4 GLOB 3.2 g/dL (Normal) Range: 2.2-4.2 ALB 3.8 g/dL (Normal) Range: 3.2-5.0 T PROT 7.0 g/dL (Normal) Range: 6.4-8.2 BUN/CRE 13.9 {RATIO} (Normal) Range: 10-20 Estimated CRCL 64.65 ml/min (Normal) EST GFR - AA 91 mL/min (Normal) Comments: GFR Calc EST GFR 75 mL/min (Normal) Comments: Non- GFR Calc CREAT,SERUM 0.86 mg/dL (Normal) Range: 0.55-1.02 Comments: The validity of the calculated GFR AND GFRAA in patients over70 years has not been determined. Clinical correlation isessential. BUN 12 mg/dL (Normal) Range: 7-18 GLU 118 mg/dL (Abnormal) Range: 74-106 Comments: Fasting Glucose result from 100 to 125 mg/dLsuggests IMPAIRED HOMEOSTASIS per A.D.A. criteria.Please note revised GLUCOSE reference range vpwjihxqq44/02/2018. 22-Quc-931053:42 CRP Comments: Comments: [facility] [id number] [facility] [address] [place], [place], [id number] C-REACTIVE PROT < 2.90 mg/L (Normal) Range: 0.0-3.0 Comments: C-Reactive Protein (CRP) provides useful information for thediagnosis, therapy and monitoring of inflammatory processesand associated diseases. For the evaluation of Relative Riskfor Cardiovascular Dise ase, a High Sensitivity CRP (HSCRP)should be ordered. 83-Dwu-471766:42 Erythrocyte Sed Rate Comments: [facility] [address] [place], [place], [address] SED RATE 7 mm/h (Normal) Range: 0-20 39-Hxw-865053:58 Basic Metabolic Profile (BMP) Comments: [facility] [address] [place], [place], [address] GAP 13 (Normal) Range: 5-15 CO2 24.0 mmol/L (Normal) Range: 21.0-32.0 CL 106 mmol/L (Normal) Range: 98-107 K 3.7 mmol/L (Normal) Range: 3.5-5.1 NA 143 mmol/L (Normal) Range: 136-145 CA 8.9 mg/dL (Normal) Range: 8.5-10.1 BUN/CRE 13.3 {RATIO} (Normal) Range: 10-20 Estimated CRCL 61.77 ml/min (Normal) EST GFR - AA 86 mL/min (Normal) Comments: GFR Calc EST GFR 71 mL/min (Normal) Comments: Non- GFR Calc CREAT,SERUM 0.90 mg/dL (Normal) Range: 0.55-1.02 Comments: The validity of the calculated GFR AND GFRAA in patients over70 years has not been determined. Clinical correlation isessential. BUN 12 mg/dL (Normal) Range: 7-18 GLU 95 mg/dL (Normal) Range: 74-106 Comments: Please note revised GLUCOSE reference range mrkscbnwo25/02/2018. 74-Sfu-566044:58 CBC W/Diff, Automated Comments: [facility] [address] [place], [place], [address] Absolute Lymph 1.89 {X10_3/ul} (Normal) Range: 0.83-4.51 Absolute Neut 1.7 {X10_3/uL} (Abnormal) Range: 2.0-7.7 IM GRAN % 0.000 % (Normal) Range: 0.0-0.9 Comments: IG% - Immature Granulocytes (promyelocytes, myelocytes andmetamyelocytes) > 1% indicates that a LEFT SHIFT is Present. BASO% 1.6 % (Abnormal) Range: 0-1 EO% 4.2 % (Normal) Range: 0-5 MONO% 9.2 % (Normal) Range: 0-10 LY% 44.5 % (Abnormal) Range: 19-41 NEUT% 40.5 % (Abnormal) Range: 47-70 MPV 11.5 fL (Normal) Range: 6.2-12.0 PLT 251 K/mm3 (Normal) Range: 150-450 RDW SD 39.8 fL (Normal) Range: 35.1-43.9 RDW CV 12.4 % (Normal) Range: 11.6-14.6 MCHC 33.3 {g/gl} (Normal) Range: 32-36 MCH 29.6 pg (Normal) Range: 27.0-32.0 MCV 88.8 fL (Normal) Range: 81-99 HCT 41.1 % (Normal) Range: 37-47 HGB 13.7 g/dL (Normal) Range: 12.0-15.0 RBC 4.63 {M/mm3} (Normal) Range: 4.2-5.4 WBC 4.3 K/mm3 (Abnormal) Range: 4.4-11.0 01-Pyh-804252:58 Partial Thromboplast Time Comments: [facility] [address] [place], [place], [id number] PTT 28.6 s (Normal) Range: 24.1-36.2 87-Dmy-568183:58 Prothrombin Time w/INR Comments: [facility] [address] [place], [place], [address] INR 1.0 (Normal) PROTIME 13.1 s (Normal) Range: 11.7-14.9 29-Wtn-148717:58 Troponin-I Comments: [facility] [address] [place], [place], [address] TROPONIN-I < 0.015 ng/mL (Normal) Comments: TROPONIN-I EXPECTED VALUES <0.045 Negative 0.045 - 0.590 Consistent with Cardiac Damage > OR = 0.600 Critical Value Not every elevated troponin is indicative of FL. T hesevalues should be used with clinical judgement in examiningthe patient's clinical picture for diagnosis. To establisha diagnosis of FL versus myocardial injury, there must be ademonstrated rise and/ or fall in the troponin values, inaddition to ischemic symptoms, EKG changes, new regionalwall motion abnormality, and/or angiographical evidence. PLEASE NOTE: REFERENCE RANGES EDITED 17:35 CBC W/Diff, Automated Comments: [facility] [address] [place], [place], [address] Absolute Lymph 1.94 {X10_3/ul} (Normal) Range: 0.83-4.51 [...] Range: 4.4-11.0 :35 Erythrocyte Sed Rate Comments: [facility] [address] [place], [place], [address] SED RATE 10 mm/h (Normal) Range: 0-20 22-Feb-20188:35 Troponin-I Comments: [address] [place], [place], [address] TROPONIN-I < 0.015 ng/mL (Normal) Comments: TROPONIN-I EXPECTED VALUES <0.045 Negative 0.045 - 0.590 Consistent with Cardiac Damage > OR = 0.600 Critical Value Not every elevated troponin is indicative of FL. T hesevalues should be used with clinical judgement in examiningthe patient's clinical picture for diagnosis. To establisha diagnosis of FL versus myocardial injury, there must be ademonstrated rise and/ or fall in the troponin values, inaddition to ischemic symptoms, EKG changes, new regionalwall motion abnormality, and/or angiographical evidence. PLEASE NOTE: REFERENCE RANGES EDITED 08/27/1712-Nov-201701-Toy-051897:19 CBC W/Diff, Automated Comments: [facility] [address] [place], [place], [address] Absolute Lymph 1.67 {X10_3/ul} (Normal) Range: 0.83-4.51 [...] 4.2-5.4 WBC 4.1 K/mm3 (Abnormal) Range: 4.4-11.0 82-Oxv-305200:19 Comprehensive Metabolic Profil Comments: [facility] [address] [place], [place], [address] GAP 9 (Normal) Range: 5-15 CO2 28.0 [...] Comments: Please note revised GLUCOSE reference range mkwtzgyvh67/02/2018. 47-Upy-898603:19 Hemoglobin A1c Comments: [facility] [address] [place], [place], [address] HGB A1C 5.4 % (Normal) Range: 4.2-6.3 38-Avw-669194:19 Lipid Profile Comments: [facility] [address] [place], [address] VLDL 20 mg/dL (Normal) Range: 5-40 LDL [...] 200-240 mg/dL Borderline >240 mg/dL High Risk 58-Xfv-161350:19 Lipoprotein A <10 nmol/L (Normal) Comments: [facility] (refer to report for specific site)refer to report for address and phone number Comments: Note: Values greater than or equal to 75 nmol/L may indicate an independent risk factor for CHD, but must be evaluated with caution when applied to non- populations due to th e influence of genetic factors on Lp(a) across ethnicities.Performed at: [address] [id number] Director: Keith Chun PhD, Phone: [phone] 81-Vmu-352829:19 Microalb:Creat Ratio,Random UR Comments: [facility] [address] [place], [place], [address] MALB:CREAT 6.0 {mg/g_CRE} (Normal) MICROALBUMIN,UR 5.6 mg/L (Normal) UR CREAT 92.20 mg/dL (Normal) 89-Cnf-930645:19 Thyroid Stim Hormone (TSH) Comments: [facility] [address] [place], [place], [address] TSH 0.89 {uIU/mL} (Normal) Range: 0.358-3.74 67-Hlf-79649:19 HGB A1C (64268) Comments: PATIENT NOT FASTINGPERFORMED BY: [address] [id number] Hemoglobin A1c 5.6 % (Normal) Range: 4.8-5.6 Comments: . Pre-diabetes: 5.7 - 6.4 Diabetes: >6.4 Glycemic control for adults with diabetes: <7.0 21-Qqj-20810:28 HGB A1C (99646) Comments: PATIENT NOT FASTINGPERFORMED BY: [facility] [place] [id number] Hemoglobin A1c 5.4 % (Normal) Range: 4.8-5.6 Comments: . Pre-diabetes: 5.7 - 6.4 Diabetes: >6.4 Glycemic control for adults with diabetes: <7.0 5-Uqh-781558:55 HgA1C , Office (38595) HgA1C , Office 5.6 % (Normal) Range: 4.6 - 7.1 Plan of Care Name Dates Details Instructions Influenza A : Reviewed Lab Indication: Influenza A Influenza A : Reviewed Diagnostic Tests Indication: Influenza A Influenza A : Reviewed Prepleater Letter Indication: Influenza A BMI 27.0-27.9,adult : [...] Eprescribed prescriptions (G8553) Indication: Osteoporosis Planned Observations HEPATIC FUNCTION PANEL (20500)Indication: Elevated liver function tests On: Request HEPATITIS PANEL (89525)Indication: Elevated liver function tests On: Request ANTIMITOCHONDRIAL ANTIBODY (35252)Indication: Elevated liver function tests On: Request TRANSFERRIN (84173)Indication: Elevated liver function tests On: Request GGT (GAMMA GLUTAMYLTRANSFERASE) (22273)Indication: Elevated liver function tests On: Request FERRITIN (95759)Indication: Elevated liver function tests On: Request CMV IGM ANTBDY (23951)Indication: Elevated liver function tests On: Request CERULOPLASMIN (94721)Indication: Elevated liver function tests On: Request ASM (ANTI SMOOTH MUSCLE ANTIBODY) (08874)Indication: Elevated liver function tests On: Request ANTI-LIVER/KIDNEY MICROSOMAL ANTIBODY (41507)Indication: Elevated liver function tests On: Request TETE (ANTINUCLEAR ANTIBODY) (63111)Indication: Elevated liver function tests On: Request 24 HOUR URINE, COPPER (19878) (95805)Indication: Elevated liver function tests On: 78-Org-611402:36 Request CBC & PLATELETS (AUTO) (74314)Indication: Elevated liver function tests On: :41 Request HEPATIC FUNCTION PANEL (92652)Indication: Elevated liver function tests On: :41 Request Systemic Lupus Profile (51862)Indication: Other acute pericarditis On: :37 Request SED RATE ERYTHROCYTE (43923)Indication: Other acute pericarditis On: :37 Request C-REACTIVE PROTEIN (55345)Indication: Other acute pericarditis On: :37 Request METABOLIC PANEL, COMPREHENSIVE (50050)Indication: Other acute pericarditis On: :36 Request TETE (ANTINUCLEAR ANTIBODY) (95385)Indication: Other acute pericarditis On: :36 Request CBC & PLATELETS (AUTO) (99221)Indication: Other acute pericarditis On: :36 Request TSH (THYROID STIMULATING HORMONE) (07176)Indication: Impaired fasting glucose On: :53 Request MICROALBUMIN: CREATININE RATIO (91066) AND (07928)Indication: Impaired fasting glucose On: :53 Request METABOLIC PANEL, COMPREHENSIVE (24586)Indication: Impaired fasting glucose On: :53 Request LIPOPROTEIN, BLD, BY NMR (54072)Indication: Other hyperlipidemia On: :53 Request LIPID PANEL (88002)Indication: Other hyperlipidemia On: :53 Request CBC with auto diff (53799)Indication: Impaired fasting glucose On: :53 Request HGB A1C (87936)Indication: Impaired fasting glucose On: :53 Request URINALYSIS (89524)Indication: Hematuria, microscopic On: 08-Qvv-36986:05 Request CALCIFEDIOL (70041)Indication: Secondary hyperparathyroidism On: 56-Fsn-920248:36 Request PARATHORMONE (96601)Indication: Secondary hyperparathyroidism On: 69-Wjw-813248:36 Request TSH (94869)Indication: Impaired fasting glucose On: :36 Request URINALYSIS, W/ MICRO (10512)Indication: Impaired fasting glucose On: 85-Nfa-162125:36 Request MICROALBUMIN: CREATININE RATIO (93408) AND (29059)Indication: Impaired fasting glucose On: 90-Fwp-604353:36 Request METABOLIC PANEL, COMPREHENSIVE (79085)Indication: Impaired fasting glucose On: 95-Ezb-739227:36 Request LIPID PANEL (31970)Indication: Impaired fasting glucose On: :36 Request CBC W/AUTO DIFF WBC (96596)Indication: Impaired fasting glucose On: :36 Request HGB A1C (68942)Indication: Impaired fasting glucose On: 35-Cdb-830144:34 Request TSH (76514)Indication: Impaired fasting glucose On: :34 Request URINALYSIS, W/ MICRO (73970)Indication: Impaired fasting glucose On: :34 Request MICROALBUMIN: CREATININE RATIO (78458) AND (56996)Indication: Impaired fasting glucose On: :34 Request METABOLIC PANEL, COMPREHENSIVE (16605)Indication: Impaired fasting glucose On: 76-Eje-803022:34 Request LIPID PANEL (33473)Indication: Other hyperlipidemia On: 89-Zox-842172:34 Request CBC W/AUTO DIFF WBC (28227)Indication: Impaired fasting glucose On: 91-Haz-496728:34 Request PARATHORMONE (54220)Indication: Secondary hyperparathyroidism On: 3-Fkp-902287:47 Request METABOLIC PANEL, COMPREHENSIVE (11746)Indication: Impaired fasting glucose On: 2-Izz-499109:46 Request LIPID PANEL (04131)Indication: Other hyperlipidemia On: 2-Koy-874967:46 Request Vitamin D Hydroxy (46132)Indication: Secondary hyperparathyroidism On: 8-Mxc-680396:46 Request HGB A1C (81482)Indication: Impaired fasting glucose On: 7-Ghr-793127:45 Request Vitamin D Hydroxy (17845)Indication: Osteoporosis On: 8-Kwe-973625:45 Request PARATHORMONE (17145)Indication: Secondary hyperparathyroidism On: 46-Jwz-520349:16 Request LIPID PANEL (22981)Indication: Secondary hyperparathyroidism On: 51-Efe-871498:16 Request METABOLIC PANEL, COMPREHENSIVE (80796)Indication: Secondary hyperparathyroidism On: 28-Znk-344995:16 Request LIPID PANEL (39547)Indication: Other hyperlipidemia On: 58-Vgq-823774:16 Request LIPID PANEL (05964)Indication: Other hyperlipidemia On: 2-Vpw-288987:35 Request METABOLIC PANEL, COMPREHENSIVE (67480)Indication: Osteoporosis On: 9-Joa-523649:34 Request Vitamin D Hydroxy (95414)Indication: Impaired Fasting Glucose (Renamed from Elevated fasting blood sugar) On: 3-Flv-736059:34 Request PARATHORMONE (53032)Indication: Secondary hyperparathyroidism On: :34 Request CBC W/AUTO DIFF WBC (76823)Indication: Other hyperlipidemia On: 2-Abs-635797:07 Request METABOLIC PANEL, COMPREHENSIVE (28536)Indication: Other hyperlipidemia On: 5-Pcd-585604:07 Request LIPID PANEL (52660)Indication: Other hyperlipidemia On: 6-Nmq-334427:04 Request MICROALBUMIN: CREATININE RATIO (89085) AND (76120)Indication: Impaired Fasting Glucose (Renamed from Elevated fasting blood sugar) On: 4-Rvz-965606:04 Request URINE CALCIUM DARYL TIMED 24 Hour (71332)Indication: Osteoporosis On: 2-Qur-657022:54 Request Vitamin D Hydroxy (04943)Indication: Osteoporosis On: 6-Ygn-314077:51 Request TSH (56680)Indication: Osteoporosis On: 4-Ngy-219755:51 Request SED RATE ERYTHROCYTE (37129)Indication: Osteoporosis On: 2-Mkk-506068:51 Request PHOSPHORUS (33982)Indication: Osteoporosis On: 3-Guv-611728:51 Request PARATHORMONE (68101)Indication: Osteoporosis On: 1-Kcc-748048:51 Request Planned Encounters Medical; 6 Month FU - On: 20-May-2018 9:45 [facility] Renu Mejia DO, DO, Kathleen Planned Procedures Ultrasound - LiverBy: Cammy Fernández On: 29-Mar-2018 Intent MANAGER STYLE LIMITED ECHOCARDIOGRAPHY ([id number])By: On: 04-Mar-2018 Intent Renu Mejia DO, DO, Kathleen ELECTROCARDIOGRAM, COMPLETE (ECG) On: 14-Nov-2017 Intent (21667)By: Renu Mejia DO Comments: nsr no acute chg inc small ivcd in v1-- faxed to cardio --asx Renu [place] DEXA SCAN AXIAL SKELETON (06171)By: On: 07-Jun-2017 Intent Renu Mejia DO, DO, Kathleen PARATHYROID SCAN (76833)By: Jackie LAKE, On: 28-Jan-2016 Intent Renu Jefferson DO MAMMOGRAM, SCREENING, BOTH BREAST On: 21-Jun-2015 Intent (97542)By: Gosia Cain DO Breast Ultrasound - LeftBy: Rusty KERR, On: 25-Dec-2014 Intent Kelley M INJECTION, PROLIA ([id number])By: Ant LAKE, On: 14-Dec-2014 Intent Gosia Gallardo Comments: lot:[id number]:route:SQdose:prefilled syringeSite:Rgiven by: Elvin Shi CMA MAMMOGRAM, SCREENING, BOTH BREAST On: 18-Aug-2014 Intent (80155)By: Gosia Cain DO DEXA SCAN AXIAL SKELETON ([id number])By: Ant On: 18-Aug-2014 Intent Gosia LAKE Planned Medications INJECTION, PROLIA Ordered: 14-Dec-2014 Pending [...] Osteoporosis : Patient Instructions Indication: Osteoporosis Encounters Phone Encounter On: 29-Mar-2018 11:35 Encounter Diagnosis: Elevated liver function tests End: 29-Mar-2018 16:18 [facility] Phone Encounter On: 12-Mar-2018 15:53 Encounter Diagnosis: Unspecified Diagnosis End: 12-Mar-2018 15:55 [facility] Lab Order On: 12-Mar-2018 10:40 Encounter Diagnosis: Elevated liver function tests End: 12-Mar-2018 10:41 [facility] Phone Encounter On: 04-Mar-2018 10:32 Encounter Diagnosis: Other acute pericarditis End: 04-Mar-2018 10:54 [facility] Office Visit On: 25-Feb-2018 10:06 Encounter Reason: [...] no regular soda and restricting calories. 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 A1c was 5.[address] [facility] suggested her to monitor it also.- has gained 10 pounds in last year - she feels like she is a food a holic- she started at [employer] last week Encounter Diagnosis: Osteoporosis (733.00), Impaired Fasting Glucose (Renamed from Elevated fasting blood sugar), Hyperlipidemia (272.4), screening [facility]or
--- OUTSIDE RECORDS SUMMARY | 2018-05-14 12:12 | XMS RPT_ITS | Continuity of Care Document ---
:1970 Author Organization [facility] Address [address] [place] [address] Phone Care Team Providers Name Role Phone JackieRenu chang DO Unavailable Fast Gosia LAKE Unavailable Gravius Lulu Unavailable Unavailable Nadeen Smiley Unavailable Unavailable Unavailable Unavailable Problems Name Dates [...] Postmenopausal estrogen deficiency (Z78.0, V49.81) Comments: s/p [facility] 12/30 Status: Active Pregnancies () Comments: 2. [...] 30 {Capsule} Refills: 11 Ordered:20-Mar-2017 Jackie LAKE RenuJackie Renu Start : 20-Mar-2017 Active Adipex-P 37.5 [...] Completed Hysterectomy; Total Completed Date Value Details 04-Mar-2018 CTA Chest W/WO Contrast Result: Comments: See Note; NOTES: [facility] Imaging Services [address] [place] [place] [address] CTA Chest W/WO Contrast MR#: [id number] Acct: [id number] Name: LIV HEDRICK Rep #: [id number] : 1970 F 47 From: Leroy Aj MD PCP: Renu Mejia DO Status: REG ER Study: CTA Chest W/WO Contrast Date of Exam: 03/04/18 Exam# [id number] Ordering Dr: Miky Gibson MD [facility] DY: CTA CHEST REASON FOR EXAM: Female, [...] Signed: Mamta Douglas at 12:32 EST Tel [phone], Service support , CC: Renu Mejia DO; Miky Gibson MD Otolaryngology Physician: Signed 22-Feb-2018 Emergency Department Summary Result: Comments: See Note; NOTES: [facility] Medical Records Department [address] [place] [address] Emergency Department Summary 02/22/18 1217 MR#: [id number] Acct: [id number] Name: LIV HEDRICK Rep #: [id number] : 1970 47 From: Garett Anderson MD [...] compared to EKG from 9 years ago. IA interval normal. QRS duration normal. QT interval is prolonged. [place] is normal. CBC unremarkable. Troponin normal. ESR [...] influenza A This note was generated with [employer] dictation software . It may contain incorrect words, spelling, and punctuation that were not noted in review of the chart prior to signing ED Disposition - Plan for ED Patient: Chief Complaint: Chest Other Referrals: Renu Frederick, DO [Primary Care Provider] - What to do if you have Problems For any increased pain, shortness of breath, bleeding, nausea or vomiting, chest pain, or any unexpected problems, contac t your Primary Care Provider. Call [facility] ([phone]) or report to the closest Emergency Room. Call 911 if necessary. 02/22/18 1222 <Electronically signed by Garett Anderson MD> Date Garett Anderson MD Cosigner Signature (If Indicated): Date CC: Renu Mejia DO; Cody Lomas MD 22-Feb-2018 Echocardiogram Complete Result: Comments: See Note; NOTES: [facility] Cardiovascular Services [address] [place] [address] Echo Complete 02/22/18 1020 MR#: [id number] Acct: [id number] Name: LIV HEDRICK Rep #: [id number] : 1970 47 From: Cody Lomas MD [...] Ordering Physician: Garett Anderson Performed By: Virginia Galeano, MARIBETH 02/22/18 1202 Date Cody Lomas MD CC: Renu Mejia DO; Garett Anderson MD Date Dictated: 02/22/18 1020 Date Transcribed: 02/22/18 1202 Otolaryngology Physician: Signed 22-Feb-2018 Chest PA and Lateral Result: Comments: See Note; NOTES: [facility] Imaging Services [address] [place] [address] Chest PA and Lateral MR#: [id number] Acct: [id number] Name: LIV HEDRICK Rep #: [id number] : 1970 F 47 From: Leroy Aj MD PCP: Renu Mejia DO Status: PRE ER Study: Chest PA and Lateral Date of Exam: 02/22/18 Exam# [id number] Ordering Dr: Garett Anderson MD STUDY: X-RAY [...] Leroy Aj MD at 9:14 EST Tel [phone], Service support , CC: Renu Mejia DO; Garett Anderson MD Otolaryngology Physician: Signed 04-Feb-2018 Urgent Care Visit Report Result: Comments: See Note; NOTES: [facility] [address] [place] [address] OFFICE VISIT Date of Service: 02/04/18 MR#: [id number] Acct: [id number] Name: LIV HEDRICK ep #: [id number] : 1970 Provider: Yoan FORTE Age/Sex: 47/F Location: [facility] Status: Signed Intake Vital Signs02/04/18 Height 5 [...] is a non-smoker. She has taken no uqcl-ujg-hqmehwj products to assist with her symptoms. She [...] FLU B Last Edit by Jean Pierre Yne on 02/04/18 14:08 Assessment AND Plan Problems [...] ab ove. This note was generated with [employer] dictation software. It may contain incorrect words, [...] Study (HP) Result: Comments: See Note; NOTES: [facility] Imaging Services [address] [place] [address] Dexa Bone Density Study () MR#: [id number] Acct: [id number] Name: LIV HEDRICK Sherie Rep # : [id number] : 1970 F 46 From: Leroy Aj MD PCP: Status: [facility] Study: Dexa Bone Density Study (HP) Date of Exam: 06/28/17 Exam# [id number] Ordering Dr: Renu Mejia DO STUDY: DU [...] Leroy Aj MD at 10:50 EDT Tel [phone], Service support , CC: Renu Mejia DO Otolaryngology Physician: Signed Family History Unknown Family Member Name Dates Details Father Comments: living aml and dm - had stem cell transplant Status: Active Mother Comments: mother living - dm Status: Active Social History Name Dates Details Alcohol Use: Occasional alcohol use. Status: Active Caffeine Use Comments: 1 cup qd Status: Active Current Work/Study Status Comments: [employer] Status: Active Living Situation Comments: lives with [...] kg/m2 Body Surface Area Calculated 1.65 m2 1-Iraj-12414:00 Pulse 74 /min Comments: Pattern: Regular Respiration [...] 1.74 m2 Results Date Description Value Details :58 Basic Metabolic Profile (BMP) Comments: [facility] [address] [place], [address] GAP 13 (Normal) Range: 5-15 CO2 24.0 [...] Comments: Please note revised GLUCOSE reference range tyckegaai68/02/2018. 19-Agw-589833:58 CBC W/Diff, Automated Comments: [facility] [address] [place], [address] Absolute Lymph 1.89 {X10_3/ul} (Normal) Range: 0.83-4.51 [...] 4.2-5.4 WBC 4.3 K/mm3 (Abnormal) Range: 4.4-11.0 84-Qxj-940087:58 Partial Thromboplast Time Comments: [facility] [address] [place], [address] PTT 28.6 s (Normal) Range: 24.1-36.2 95-Jcx-378716:58 Prothrombin Time w/INR Comments: [facility] [address] [place], [address] INR 1.0 (Normal) PROTIME 13.1 s (Normal) Range: 11.7-14.9 47-Ejl-446858:58 Troponin-I Comments: [facility] [address] [place], [address] TROPONIN-I < 0.015 ng/mL (Normal) Comments: TROPONIN-I EXPECTED VALUES <0.045 Negative 0.045 - 0.590 Consistent with Cardiac Damage > OR = 0.600 Critical Value Not every elevated troponin is indicative of WI. T hesevalues should be used with clinical judgement in examiningthe patient's clinical picture for diagnosis. To establisha diagnosis of WI versus myocardial injury, there must be ademonstrated rise and/ or fall in the troponin values, inaddition to ischemic symptoms, EKG changes, new regionalwall motion abnormality, and/or angiographical evidence. PLEASE NOTE: REFERENCE RANGES EDITED 08/27/1722-Feb-20188:35 CBC W/Diff, Automated Comments: [facility] [address] [place], [address] Absolute Lymph 1.94 {X10_3/ul} (Normal) Range: 0.83-4.51 [...] Range: 4.4-11.0 :35 Erythrocyte Sed Rate Comments: [facility] [address] [facility]. [place], [place], [id number] SED RATE 10 mm/h (Normal) Range: 0-20 :35 Troponin-I Comments: [address] [place], [place], [address] TROPONIN-I < 0.015 ng/mL (Normal) Comments: TROPONIN-I EXPECTED VALUES <0.045 Negative 0.045 - 0.590 Consistent with Cardiac Damage > OR = 0.600 Critical Value Not every elevated troponin is indicative of WI. T hesevalues should be used with clinical judgement in examiningthe patient's clinical picture for diagnosis. To establisha diagnosis of WI versus myocardial injury, there must be ademonstrated rise and/ or fall in the troponin values, inaddition to ischemic symptoms, EKG changes, new regionalwall motion abnormality, and/or angiographical evidence. PLEASE NOTE: REFERENCE RANGES EDITED 08/27/1712-Nov-201745-Afk-651833:19 CBC W/Diff, Automated Comments: [facility] [address] [facility] [address] [place], [place], [address] Absolute Lymph 1.67 {X10_3/ul} (Normal) Range: 0.83-4.51 [...] 4.2-5.4 WBC 4.1 K/mm3 (Abnormal) Range: 4.4-11.0 34-Rws-335875:19 Comprehensive Metabolic Profil Comments: [facility] [address] [place], [place], [id number] GAP 9 (Normal) Range: 5-15 CO2 28.0 [...] Comments: Please note revised GLUCOSE reference range /02/2018. 63-Fci-439645:19 Hemoglobin A1c Comments: [facility] [address] [facility] [place], [address] HGB A1C 5.4 % (Normal) Range: 4.2-6.3 12-Ttv-569913:19 Lipid Profile Comments: [facility] [address] [facility] [place], [address] VLDL 20 mg/dL (Normal) Range: 5-40 LDL [...] 200-240 mg/dL Borderline >240 mg/dL High Risk 28-Vms-965679:19 Lipoprotein A <10 nmol/L (Normal) Comments: [facility] (refer to report for specific site)refer to report for address and phone number Comments: Note: Values greater than or equal to 75 nmol/L may indicate an independent risk factor for CHD, but must be evaluated with caution when applied to non- populations due to th e influence of genetic factors on Lp(a) across ethnicities.Performed at: [address] [id number] Director: Keith Chun PhD, Phone: [phone] 43-Ucm-733469:19 Microalb:Creat Ratio,Random UR Comments: [facility] [address] [place], [place], [address] MALB:CREAT 6.0 {mg/g_CRE} (Normal) MICROALBUMIN,UR 5.6 mg/L (Normal) UR CREAT 92.20 mg/dL (Normal) 79-Ucy-203241:19 Thyroid Stim Hormone (TSH) Comments: [facility] [address] [place], [place], [address] TSH 0.89 {uIU/mL} (Normal) Range: 0.358-3.74 54-Osg-95275:19 HGB A1C (49962) Comments: PATIENT NOT FASTINGPERFORMED BY: [address] [id number] Hemoglobin A1c 5.6 % (Normal) Range: 4.8-5.6 Comments: . Pre-diabetes: 5.7 - 6.4 Diabetes: >6.4 Glycemic control for adults with diabetes: <7.0 :28 HGB A1C (32337) Comments: PATIENT NOT FASTINGPERFORMED BY: [address] [id number] Hemoglobin A1c 5.4 % (Normal) Range: 4.8-5.6 Comments: . Pre-diabetes: 5.7 - 6.4 Diabetes: >6.4 Glycemic control for adults with diabetes: <7.0 0-Ion-824869:55 HgA1C , Office (95264) HgA1C , Office 5.6 % (Normal) Range: 4.6 - 7.1 Plan of Care Name Dates Details Instructions Influenza A : Reviewed Lab Indication: Influenza A Influenza A : Reviewed Diagnostic Tests Indication: Influenza A Influenza A : Reviewed Corporate Strategy Associate Letter Indication: Influenza A BMI 27.0-27.9,adult : [...] Eprescribed prescriptions (G8553) Indication: Osteoporosis Planned Observations Systemic Lupus Profile (87469)Indication: Other acute pericarditis On: :37 Request SED RATE ERYTHROCYTE (75571)Indication: Other acute pericarditis On: :37 Request C-REACTIVE PROTEIN (11010)Indication: Other acute pericarditis On: :37 Request METABOLIC PANEL, COMPREHENSIVE (65074)Indication: Other acute pericarditis On: :36 Request TETE (ANTINUCLEAR ANTIBODY) (95634)Indication: Other acute pericarditis On: :36 Request CBC & PLATELETS (AUTO) (99911)Indication: Other acute pericarditis On: :36 Request TSH (THYROID STIMULATING HORMONE) (81793)Indication: Impaired fasting glucose On: :53 Request MICROALBUMIN: CREATININE RATIO (16099) AND (88975)Indication: Impaired fasting glucose On: :53 Request METABOLIC PANEL, COMPREHENSIVE (29504)Indication: Impaired fasting glucose On: :53 Request LIPOPROTEIN, BLD, BY NMR (38235)Indication: Other hyperlipidemia On: :53 Request LIPID PANEL (42894)Indication: Other hyperlipidemia On: :53 Request CBC with auto diff (90496)Indication: Impaired fasting glucose On: :53 Request HGB A1C (01229)Indication: Impaired fasting glucose On: :53 Request URINALYSIS (41518)Indication: Hematuria, microscopic On: 10-Zfx-11509:05 Request CALCIFEDIOL (89699)Indication: Secondary hyperparathyroidism On: :36 Request PARATHORMONE (47960)Indication: Secondary hyperparathyroidism On: :36 Request TSH (51935)Indication: Impaired fasting glucose On: :36 Request URINALYSIS, W/ MICRO (35431)Indication: Impaired fasting glucose On: :36 Request MICROALBUMIN: CREATININE RATIO (31100) AND (11586)Indication: Impaired fasting glucose On: 57-Dyi-483684:36 Request METABOLIC PANEL, COMPREHENSIVE (97374)Indication: Impaired fasting glucose On: 28-Zoa-935803:36 Request LIPID PANEL (18244)Indication: Impaired fasting glucose On: 02-Zxb-487270:36 Request CBC W/AUTO DIFF WBC (50330)Indication: Impaired fasting glucose On: 08-Nad-601980:36 Request HGB A1C (37099)Indication: Impaired fasting glucose On: 47-Kux-541948:34 Request TSH (27163)Indication: Impaired fasting glucose On: :34 Request URINALYSIS, W/ MICRO (55515)Indication: Impaired fasting glucose On: :34 Request MICROALBUMIN: CREATININE RATIO (80744) AND (61615)Indication: Impaired fasting glucose On: 49-Tnq-650767:34 Request METABOLIC PANEL, COMPREHENSIVE (69807)Indication: Impaired fasting glucose On: 69-Ypd-791729:34 Request LIPID PANEL (78601)Indication: Other hyperlipidemia On: 10-Hcf-426900:34 Request CBC W/AUTO DIFF WBC (22051)Indication: Impaired fasting glucose On: 84-Lnm-062120:34 Request PARATHORMONE (39610)Indication: Secondary hyperparathyroidism On: 4-Xfm-169100:47 Request METABOLIC PANEL, COMPREHENSIVE (27793)Indication: Impaired fasting glucose On: 3-Xui-493799:46 Request LIPID PANEL (82199)Indication: Other hyperlipidemia On: 5-Ssz-051873:46 Request Vitamin D Hydroxy (17291)Indication: Secondary hyperparathyroidism On: 6-Ihr-285482:46 Request HGB A1C (64317)Indication: Impaired fasting glucose On: 0-Wkd-949846:45 Request Vitamin D Hydroxy (30083)Indication: Osteoporosis On: 6-Cnd-321209:45 Request PARATHORMONE (55037)Indication: Secondary hyperparathyroidism On: 52-Wpr-169933:16 Request LIPID PANEL (23651)Indication: Secondary hyperparathyroidism On: 20-Xhb-475512:16 Request METABOLIC PANEL, COMPREHENSIVE (89289)Indication: Secondary hyperparathyroidism On: 13-Zmo-306125:16 Request LIPID PANEL (56848)Indication: Other hyperlipidemia On: 75-Ece-993859:16 Request LIPID PANEL (78533)Indication: Other hyperlipidemia On: 1-Hvu-790256:35 Request METABOLIC PANEL, COMPREHENSIVE (15957)Indication: Osteoporosis On: 8-Eao-033210:34 Request Vitamin D Hydroxy (38939)Indication: Impaired Fasting Glucose (Renamed from Elevated fasting blood sugar) On: 0-Hlm-758396:34 Request PARATHORMONE (61505)Indication: Secondary hyperparathyroidism On: :34 Request CBC W/AUTO DIFF WBC (89118)Indication: Other hyperlipidemia On: 5-Vgs-833198:07 Request METABOLIC PANEL, COMPREHENSIVE (66602)Indication: Other hyperlipidemia On: 5-Vvf-041927:07 Request LIPID PANEL (74845)Indication: Other hyperlipidemia On: 4-Dfr-592989:04 Request MICROALBUMIN: CREATININE RATIO (97572) AND (57523)Indication: Impaired Fasting Glucose (Renamed from Elevated fasting blood sugar) On: :04 Request URINE CALCIUM DARYL TIMED 24 Hour (01338)Indication: Osteoporosis On: 2-Eqa-209532:54 Request Vitamin D Hydroxy (07024)Indication: Osteoporosis On: 3-Dtc-853757:51 Request TSH (52221)Indication: Osteoporosis On: 8-Fro-031282:51 Request SED RATE ERYTHROCYTE (49483)Indication: Osteoporosis On: :51 Request PHOSPHORUS (92136)Indication: Osteoporosis On: 4-Jbj-244657:51 Request PARATHORMONE (73895)Indication: Osteoporosis On: 2-Xgf-158333:51 Request Planned Encounters Medical; 6 Month FU - On: 20-May-2018 9:45 [facility] Renu Mejia DO, DO, Kathleen Planned Procedures LIMITED ECHOCARDIOGRAPHY (05168)By: On: 04-Mar-2018 Intent Renu Mejia DO, DO, Kathleen ELECTROCARDIOGRAM, COMPLETE (ECG) On: 14-Nov-2017 Intent (38008)By: Renu Mejia DO Comments: nsr no acute chg inc small ivcd in v1-- faxed to cardio --asx Renu LAKE DEXA SCAN AXIAL SKELETON (34983)By: On: 07-Jun-2017 Intent Renu Mejia DO, DO, Kathleen PARATHYROID SCAN (54200)By: Jackie LAKE, On: 28-Jan-2016 Intent RenuJaimee Glez DOeen MAMMOGRAM, SCREENING, BOTH BREAST On: 21-Jun-2015 Intent (30959)By: Gosia Cain DO Breast Ultrasound - LeftBy: Rusty KERR, On: 25-Dec-2014 Intent Kelley M INJECTION, PROLIA ([id number])By: Ant LAKE, On: 14-Dec-2014 Intent Gosia Reyna Comments: lot:[id number]:route:SQdose:prefilled syringeSite:Rgiven by: Elvin Shi CMA MAMMOGRAM, SCREENING, BOTH BREAST On: 18-Aug-2014 Intent (17791)By: Gosia Cain DO DEXA SCAN AXIAL SKELETON (48437)By: Ant On: 18-Aug-2014 Intent Gosia LAKE Planned [...] Instructions Indication: Osteoporosis Encounters Phone Encounter On: 04-Mar-2018 10:32 Encounter Diagnosis: [...] no regular soda and restricting calories. 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 A1c was 5.5 and dietican at [facility] suggested her to monitor it also.- has gained 10 pounds in last year - she feels like she is a food a holic- she started at [employer] last week Encounter Diagnosis: Osteoporosis (733.00), Impaired Fasting Glucose (Renamed from Elevated fasting blood sugar), Hyperlipidemia (272.4), screening [facility]; sami guarantor
--- OUTSIDE RECORDS SUMMARY | 2018-05-14 12:12 | XMS RPT_ITS | Continuity of Care Document ---
:1970 Author Organization [facility] Address [facility] [address] Phone Care Team Providers Name Role Phone [...] Postmenopausal estrogen deficiency (Z78.0, V49.81) Comments: s/p [facility] Status: Active Pregnancies () Comments: 2. [...] Department Summary Result: Comments: See Note; NOTES: [facility] Medical Records Department [address] [place] [address] Emergency Department Summary 02/22/18 1217 MR#: [id number] Acct: [id number] Name: LIV HEDRICK Rep #: [id number] : 1970 47 From: Garett Anderson MD [...] compared to EKG from 9 years ago. [place] interval normal. QRS duration normal. QT interval is prolonged. [place] is normal. CBC unremarkable. Troponin normal. ESR [...] influenza A This note was generated with [employer] dictation software . It may contain incorrect [...] your Primary Care Provider. Call [facility] ([phone]) or report to the closest Emergency Room. Call 911 if necessary. 02/22/18 1222 <Electronically signed by Garett Anderson MD> Date Garett Anderson MD Cosigner Signature (If Indicated): Date CC: Renu Mejia DO; Cody Lomas MD 22-Feb-2018 Echocardiogram Complete Result: Comments: See Note; NOTES: [facility] Cardiovascular Services [address] [place] [address] Echo Complete 02/22/18 1020 MR#: [id number] Acct: [id number] Name: LIV HEDRICK Rep #: [id number] : 1970 47 From: Cody Lomas MD [...] Dictated: 02/22/18 1020 Date Transcribed: 02/22/18 1202 Public Speaking Teacher: Signed 22-Feb-2018 Chest PA and Lateral Result: Comments: See Note; NOTES: [facility] Imaging Services [address] [place] [address] Chest PA and Lateral MR#: [id number] Acct: [id number] Name: LIV HEDRICK Rep #: [id number] : 1970 F 47 From: Leroy Aj MD PCP: Renu Mejia DO Status: PRE ER Study: Chest PA and Lateral Date of Exam: 02/22/18 Exam# [id number] Ordering Dr: Garett Anderson MD STUDY: X-RAY [...] Leroy Aj MD at 9:14 EST Tel [phone], Service support , CC: Renu Mejia DO; Garett Anderson MD Public Speaking Teacher: Signed 04-Feb-2018 Urgent Care Visit Report Result: Comments: See Note; NOTES: [facility] [address] [place] [address] [address] [place] [address] OFFICE VISIT Date of Service: 02/04/18 MR#: [id number] Acct: [id number] Name: LIV HEDRICK ep #: [id number] : 1970 Provider: Yoan FOTRE Age/Sex: 47/F Location: [facility] Status: Signed Intake Vital Signs02/04/18 [...] is a non-smoker. She has taken no gbqs-qax-fycmrji products to assist with her symptoms. She [...] ab ove. This note was generated with [employer] software. It may contain incorrect words, spelling, and punctuation that were not noted in checking the note before signing. Orders Orders: Medicati ons New: Coding Level of Care Code Off vis,new,level 3 Diagnoses Influenza A J10.1 02/04/18 1414 <Electronically signed by Yoan FORTE> Date Yoan FORTE Cosigner Signature: Date (if applicable) CC: 28-Jun-2017 Dexa Bone Density Study () Result: Comments: See Note; NOTES: [facility] Imaging Services [address] [place] [address] Dexa Bone Density Study () MR#: [id number] Acct: [id number] Name: HEDRICKLIV L Rep # : [id number] : 1970 F 46 From: Leroy Aj MD PCP: Status: [facility] Study: Dexa Bone Density Study () Date of Exam: 06/28/17 Exam# [id number] Ordering Dr: Renu Mejia DO STUDY: DU [...] Leroy Aj MD at 10:50 EDT Tel [phone], Service support , CC: Renu Mejia DO Public Speaking Teacher: Signed Family History Unknown Family Member Name Dates Details Father Comments: living aml and dm - had stem cell transplant Status: Active Mother Comments: mother living - dm Status: Active Social History Name Dates Details Alcohol Use: Occasional alcohol use. Status: Active Caffeine Use Comments: 1 cup qd Status: Active Current Work/Study Status Comments: [employer] Status: Active Living Situation Comments: lives [...] Value Details :35 CBC W/Diff, Automated Comments: [facility] [address] [place], [place], [address] Absolute Lymph 1.94 {X10_3/ul} (Normal) Range: 0.83-4.51 [...] Range: 4.4-11.0 :35 Erythrocyte Sed Rate Comments: [facility] [address] [place], [place], [address] SED RATE 10 mm/h (Normal) Range: 0-20 :35 Troponin-I Comments: [facility] [address] [place], [place], [address] TROPONIN-I < 0.015 ng/mL (Normal) Comments: TROPONIN-I EXPECTED VALUES <0.045 Negative 0.045 - 0.590 Consistent with Cardiac Damage > OR = 0.600 Critical Value Not every elevated troponin is indicative of GA. T hesevalues should be used with clinical judgement in examiningthe patient's clinical picture for diagnosis. To establisha diagnosis of GA versus myocardial injury, there must be ademonstrated rise and/ or fall in the troponin values, inaddition to ischemic symptoms, EKG changes, new regionalwall motion abnormality, and/or angiographical evidence. PLEASE NOTE: REFERENCE RANGES EDITED 08/27/1712-Nov-201771-Vda-511047:19 CBC W/Diff, Automated Comments: [facility] [address] [place], [place], [address] Absolute Lymph 1.67 {X10_3/ul} (Normal) Range: 0.83-4.51 [...] 4.2-5.4 WBC 4.1 K/mm3 (Abnormal) Range: 4.4-11.0 34-Cwg-943787:19 Comprehensive Metabolic Profil Comments: [facility] [address] [place], [place], [address] GAP 9 (Normal) Range: 5-15 CO2 28.0 [...] Comments: Please note revised GLUCOSE reference range ohbrlqmiz65/02/2018. 79-Fub-536119:19 Hemoglobin A1c Comments: [facility] [address] [place], [address] HGB A1C 5.4 % (Normal) Range: 4.2-6.3 53-Rfa-107826:19 Lipid Profile Comments: [facility] [address] [place], [address] VLDL 20 mg/dL (Normal) Range: 5-40 LDL [...] 200-240 mg/dL Borderline >240 mg/dL High Risk 30-Msu-257150:19 Lipoprotein A <10 nmol/L (Normal) Comments: [facility] (refer to report for specific site)refer to report for address and phone number Comments: Note: Values greater than or equal to 75 nmol/L may indicate an independent risk factor for CHD, but must be evaluated with caution when applied to non- populations due to th e influence of genetic factors on Lp(a) across ethnicities.Performed at: [address] [address] Director: Keith Chun PhD, Phone: [phone] 83-Wuf-640272:19 Microalb:Creat Ratio,Random UR Comments: [facility] [address] [place], [place], [address] MALB:CREAT 6.0 {mg/g_CRE} (Normal) MICROALBUMIN,UR 5.6 mg/L (Normal) UR CREAT 92.20 mg/dL (Normal) 33-Dhd-497422:19 Thyroid Stim Hormone (TSH) Comments: [facility] [address] [place], [place], [address] TSH 0.89 {uIU/mL} (Normal) Range: 0.358-3.74 27-Yzb-22669:19 HGB A1C (86415) Comments: PATIENT NOT FASTINGPERFORMED BY: [facility] [id number] Hemoglobin A1c 5.6 % (Normal) Range: 4.8-5.6 Comments: . Pre-diabetes: 5.7 - 6.4 Diabetes: >6.4 Glycemic control for adults with diabetes: <7.0 :28 HGB A1C (62662) Comments: PATIENT NOT FASTINGPERFORMED BY: [facility] [address] [place] [address] [id number] Hemoglobin A1c 5.4 % (Normal) Range: 4.8-5.6 Comments: . Pre-diabetes: 5.7 - 6.4 Diabetes: >6.4 Glycemic control for adults with diabetes: <7.0 9-Ajq-694788:55 HgA1C , Office (74563) HgA1C , Office 5.6 % (Normal) Range: 4.6 - 7.1 Plan of Care Name Dates Details Instructions Influenza A : Reviewed Lab Indication: Influenza A Influenza A : Reviewed Diagnostic Tests Indication: Influenza A Influenza A : Reviewed Real Estate Investor Letter Indication: Influenza A BMI 27.0-27.9,adult : [...] Osteoporosis Planned Observations TSH (THYROID STIMULATING HORMONE) (10136)Indication: Impaired fasting glucose On: :53 Request MICROALBUMIN: CREATININE RATIO (29062) AND (98745)Indication: Impaired fasting glucose On: :53 Request METABOLIC PANEL, COMPREHENSIVE (79659)Indication: Impaired fasting glucose On: :53 Request LIPOPROTEIN, BLD, BY NMR (02684)Indication: Other hyperlipidemia On: :53 Request LIPID PANEL (40450)Indication: Other hyperlipidemia On: :53 Request CBC with auto diff (02388)Indication: Impaired fasting glucose On: :53 Request HGB A1C (14424)Indication: Impaired fasting glucose On: :53 Request URINALYSIS (01634)Indication: Hematuria, microscopic On: 52-Quz-60169:05 Request CALCIFEDIOL (60577)Indication: Secondary hyperparathyroidism On: :36 Request PARATHORMONE (06548)Indication: Secondary hyperparathyroidism On: 15-Fui-168775:36 Request TSH (83571)Indication: Impaired fasting glucose On: 31-Qyw-859031:36 Request URINALYSIS, W/ MICRO (66870)Indication: Impaired fasting glucose On: 15-Upb-523597:36 Request MICROALBUMIN: CREATININE RATIO (56153) AND (46074)Indication: Impaired fasting glucose On: 85-Wjz-529485:36 Request METABOLIC PANEL, COMPREHENSIVE (80942)Indication: Impaired fasting glucose On: 14-Liv-871228:36 Request LIPID PANEL (02785)Indication: Impaired fasting glucose On: 61-Ejv-943120:36 Request CBC W/AUTO DIFF WBC (42788)Indication: Impaired fasting glucose On: 30-Nsy-770844:36 Request HGB A1C (98370)Indication: Impaired fasting glucose On: 64-Ypm-477510:34 Request TSH (83745)Indication: Impaired fasting glucose On: 80-Ynf-680437:34 Request URINALYSIS, W/ MICRO (33555)Indication: Impaired fasting glucose On: 49-Owj-054031:34 Request MICROALBUMIN: CREATININE RATIO (53384) AND (07479)Indication: Impaired fasting glucose On: 98-Wjm-418940:34 Request METABOLIC PANEL, COMPREHENSIVE (28130)Indication: Impaired fasting glucose On: 95-Pdr-013201:34 Request LIPID PANEL (95202)Indication: Other hyperlipidemia On: 15-Wkc-700711:34 Request CBC W/AUTO DIFF WBC (03719)Indication: Impaired fasting glucose On: 40-Itt-219737:34 Request PARATHORMONE (00836)Indication: Secondary hyperparathyroidism On: :47 Request METABOLIC PANEL, COMPREHENSIVE (24669)Indication: Impaired fasting glucose On: :46 Request LIPID PANEL (62575)Indication: Other hyperlipidemia On: :46 Request Vitamin D Hydroxy (70761)Indication: Secondary hyperparathyroidism On: :46 Request HGB A1C (94844)Indication: Impaired fasting glucose On: :45 Request Vitamin D Hydroxy (86272)Indication: Osteoporosis On: 2-Ale-381115:45 Request PARATHORMONE (24927)Indication: Secondary hyperparathyroidism On: 04-Aor-960402:16 Request LIPID PANEL (46648)Indication: Secondary hyperparathyroidism On: 51-Khk-112244:16 Request METABOLIC PANEL, COMPREHENSIVE (65346)Indication: Secondary hyperparathyroidism On: 76-Xmq-928426:16 Request LIPID PANEL (25248)Indication: Other hyperlipidemia On: 19-Omj-475012:16 Request LIPID PANEL (40217)Indication: Other hyperlipidemia On: 5-Zwd-863969:35 Request METABOLIC PANEL, COMPREHENSIVE (87195)Indication: Osteoporosis On: 2-Ajr-382552:34 Request Vitamin D Hydroxy (46447)Indication: Impaired Fasting Glucose (Renamed from Elevated fasting blood sugar) On: 0-Ahd-494902:34 Request PARATHORMONE (71171)Indication: Secondary hyperparathyroidism On: 9-Rww-051910:34 Request CBC W/AUTO DIFF WBC (03046)Indication: Other hyperlipidemia On: :07 Request METABOLIC PANEL, COMPREHENSIVE (13120)Indication: Other hyperlipidemia On: 9-Fls-478994:07 Request LIPID PANEL (22921)Indication: Other hyperlipidemia On: 5-Tim-198809:04 Request MICROALBUMIN: CREATININE RATIO (39408) AND (13987)Indication: Impaired Fasting Glucose (Renamed from Elevated fasting blood sugar) On: 4-Tnd-946519:04 Request URINE CALCIUM DARYL TIMED 24 Hour (11709)Indication: Osteoporosis On: :54 Request Vitamin D Hydroxy (18889)Indication: Osteoporosis On: :51 Request TSH (82396)Indication: Osteoporosis On: :51 Request SED RATE ERYTHROCYTE (70164)Indication: Osteoporosis On: :51 Request PHOSPHORUS (47837)Indication: Osteoporosis On: :51 Request PARATHORMONE (46015)Indication: Osteoporosis On: :51 Request Planned Encounters Medical; 6 Month FU - On: 20-May-2018 9:45 [facility] Renu Mejia DO, DO, Kathleen Planned Procedures ELECTROCARDIOGRAM, COMPLETE (ECG) On: 14-Nov-2017 Intent (47439)By: Renu Mejia DO Comments: nsr no acute chg inc small ivcd in v1-- faxed to cardio --Renu kebede DO DEXA SCAN AXIAL SKELETON (28482)By: On: 07-Jun-2017 Intent Renu Mejia DO, DO, Kathleen PARATHYROID SCAN (44123)By: Jackie LAKE, On: 28-Jan-2016 Intent Renu Jefferson DO MAMMOGRAM, SCREENING, BOTH BREAST On: 21-Jun-2015 Intent (26665)By: Gosia Cain DO Breast Ultrasound - LeftBy: Rusty KERR, On: 25-Dec-2014 Intent Kelley M INJECTION, PROLIA ([id number])By: Ant LAKE, On: 14-Dec-2014 Intent Gosia Reyna Comments: lot:[id number]:route:SQdose:prefilled syringeSite:Rgiven by: Elvin Shi CMA MAMMOGRAM, SCREENING, BOTH BREAST On: 18-Aug-2014 Intent (79236)By: Gosia Cain DO DEXA SCAN AXIAL SKELETON (19354)By: On: 18-Aug-2014 Intent Gosia Cain DO Planned [...] no regular soda and restricting calories. 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 A1c was 5.5 and dietican at [facility] suggested her to monitor it also.- has gained 10 pounds in last year - she feels like she is a food a holic- she started at [email or web address] last week Encounter Diagnosis: Osteoporosis (733.00), Impaired Fasting Glucose (Renamed from Elevated fasting blood sugar), Hyperlipidemia (272.4), screening [facility]; sami guarantor
--- OUTSIDE RECORDS SUMMARY | 2018-05-14 12:13 | XMS RPT_ITS | Continuity of Care Document ---
:1970 Author Organization [facility] Address [address] [place] [address] Phone Care Team Providers Name Role Phone Renu Mejia DO Unavailable Gosia Cain DO Unavailable Gravshahnaz, Lulu Unavailable Unavailable Ron Downs Unavailable Unavailable Nadeen Smiley Unavailable Unavailable Unavailable [...] Postmenopausal estrogen deficiency (Z78.0, V49.81) Comments: s/p [facility] bsomamm 12/30 Status: Active Pregnancies () Comments: 2. [...] Quantity: 30 {Capsule} Refills: 11 Ordered:20-Mar-2017 Jackie Kwabena LAKE DO, Kathleen Start : 20-Mar-2017 Active Adipex-P [...] Completed Hysterectomy; Total Completed Date Value Details 05-Mar-2018 Echocardiogram, Limited Study Result: Comments: See Note; NOTES: [facility] Cardiovascular Services [address] [place] [address] Echo, Limited Study 03/05/18 1100 MR#: [id number] Acct: [id number] Name: PITO HEDRICK Rep #: [id number] : 1970 47 From: Edi Alfred MD Attending Dr: Renu Mejia DO Status: REG CLI Ordering Dr: Renu Mejia DO Date: 03/05/18 Location: [facility] Sex: F C Admitted: [facility] For Study: Acute pericarditis Procedure This was [...] Date Dictated: 03/05/18 1100 Date Transcribed: 03/05/18 153 Insulation Nozzleman: Signed 04-Mar-2018 Emergency Department Summary Result: Comments: See Note; NOTES: [facility] Medical Records Department [address] [place] [address] Emergency Department Summary 03/04/18 1107 MR#: [id number] Acct: [id number] Name: LIV HEDRICK Rep #: [id number] : 1970 47 From: Miky Gibson MD [...] of pericarditis This note was generated with WePow dictation software. It may contain incorrect words, spelling, and punctuation that were not noted in review of the chart prior to signing ED Disposition - Plan for ED Patient: Chief Complaint: Chest Pain Instructions: ED Chest Pain Pericarditis Prescriptions: Hydrocodone Bitart/Apap 5-325 [Johnson 5MG- 325MG] 1 tab PO Q6H PRN PRN 3 Days #10 tab PRN Reason: Pain Prednisone 10 mg PO UD #33 tab Referrals: Renu Mejia, [Primary Care Provider] - What to do if you have Problems For any increased pain, shortness of breath, bleeding, nausea or vomiting, chest pain, or any unexpected problems, contact your Primary Care Provider. Call [facility] ([phone]) or report to the closest Emergency Room. Call 911 if necessary. 03/04/18 1422 <Electronically signed by Miky Gibson MD> Date ___ Miky Gibson MD Cosigner Signature (If Indicated): Date CC: Renu Mejia DO 04-Mar-2018 Chest 1 View (Portable) Result: Comments: See Note; NOTES: [facility] Imaging Services [address] [facility] [address] Chest 1 View (Portable) MR#: [id number] Acct: [id number] Name: BERNARDLIV L Rep #: [id number] : 1970 F 47 From: Gauri Brooke MD PCP: Renu Mejia DO Status: DEP ER Study: Chest 1 View (Portable) Date of Exam: 03/04/18 Exam# [id number] Ordering Dr: Miky Gibson MD STUDY: X-RAY CHEST REASON FOR EXAM: Female, 47 years old. Chest pain, diagnosed with pericarditis recently, improved but worse today. Shortness of breath and pain TECHNIQUE: Single AP portable view of the est. COMPARISON: 02/22/2018. CTA chest 03/04/2018. FINDINGS: [...] CC: Renu Mejia DO; Miky Gibson MD Insulation Nozzleman: Signed 04-Mar-2018 CTA Chest W/WO Contrast Result: Comments: See Note; NOTES: [facility] Imaging Services [address] [place] [address] CTA Chest W/WO Contrast MR#: [id number] Acct: [id number] Name: LIV HEDRICK Rep #: [id number] : 1970 F 47 From: Leroy Aj MD PCP: Renu Mejia DO Status: REG ER Study: CTA Chest W/WO Contrast Date of Exam: 03/04/18 Exam# [id number] Ordering Dr: Miky Gibson MD [facility] DY: CTA CHEST REASON FOR EXAM: Female, [...] Signed: Mamta Douglas at 12:32 EST Tel [phone], Service support , CC: Renu Mejia DO; Miky Gibson MD Insulation Nozzleman: Signed 22-Feb-2018 Emergency Department Summary Result: Comments: See Note; NOTES: [facility] Medical Records Department [address] [place] [address] Emergency Department Summary 02/22/18 1217 MR#: [id number] Acct: [id number] Name: LIV HEDRICK Rep #: [id number] : 1970 47 From: Garett Anderson MD [...] compared to EKG from 9 years ago. IN interval normal. QRS duration normal. QT interval is prolonged. [place] is normal. CBC unremarkable. Troponin normal. ESR [...] influenza A This note was generated with WePow dictation software . It may contain incorrect [...] your Primary Care Provider. Call [facility] ([phone]) or report to the closest Emergency Room. Call 911 if necessary. 02/22/18 1222 <Electronically signed by Garett Anderson MD> Date Garett Anderson MD Cosigner Signature (If Indicated): Date CC: Renu Mejia DO; Cody Lomas MD 22-Feb-2018 Echocardiogram Complete Result: Comments: See Note; NOTES: [facility] Cardiovascular Services [address] [place] [address] Echo Complete 02/22/18 1020 MR#: [id number] Acct: [id number] Name: LIV HEDRICK Rep #: [id number] : 1970 47 From: Cody Lomas MD [...] Dictated: 02/22/18 1020 Date Transcribed: 02/22/18 1202 Insulation Nozzleman: Signed 22-Feb-2018 Chest PA and Lateral Result: Comments: See Note; NOTES: [facility] Imaging Services [address] [facility] [address] Chest PA and Lateral MR#: [id number] Acct: [id number] Name: HEDRICKLIV Sherie Rep #: [id number] : 1970 F 47 From: Leroy Aj MD PCP: Renu Mejia DO Status: PRE ER Study: Chest PA and Lateral Date of Exam: 02/22/18 Exam# [id number] Ordering Dr: Garett Anderson MD STUDY: X-RAY [...] Leroy Aj MD at 9:14 EST Tel [phone], Service support , CC: Renu Mejia DO; Garett Anderson MD Insulation Nozzleman: Signed 04-Feb-2018 Urgent Care Visit Report Result: Comments: See Note; NOTES: [facility] [address] [place] [address] OFFICE VISIT Date of Service: 02/04/18 MR#: [id number] Acct: [id number] Name: LIV HEDRICK ep #: [id number] : 1970 Provider: Yoan FORTE Age/Sex: 47/F Location: [facility] Status: Signed Intake Vital Signs02/04/18 Height 5 [...] is a non-smoker. She has taken no tqpb-ony-moqkywc products to assist with her symptoms. She [...] ab ove. This note was generated with WePow dictation software. It may contain incorrect words, [...] Study () Result: Comments: See Note; NOTES: [facility] Imaging Services [address] [place] [address] Dexa Bone Density Study () MR#: [id number] Acct: [id number] Name: LIV HEDRICK Rep # : [id number] : 1970 F 46 From: Leroy Aj MD PCP: Status: [facility] CLI Study: Dexa Bone Density Study (HP) Date of Exam: 06/28/17 Exam# [id number] Ordering Dr: Renu Mejia DO STUDY: DU [...] Leroy Aj MD at 10:50 EDT Tel [phone], Service support , CC: Renu Mejia DO Insulation Nozzleman: Signed Family History Unknown Family Member Name Dates Details Father Comments: living aml and dm - had stem cell transplant Status: Active Mother Comments: mother living - dm Status: Active Social History Name Dates Details Alcohol Use: Occasional alcohol use. Status: Active Caffeine Use Comments: 1 cup qd Status: Active Current Work/Study Status Comments: [employer] Status: Active Living Situation Comments: lives with [...] 1.74 m2 Results Date Description Value Details 74-Elz-002629:47 Miscellaneous Lab Procedure Comments: Comments: SLE [id number] SERUM/RTTest(s) Ordered: SLE [id number] [facility] [address] [place], [address] [facility] (Normal) Comments: TEST RESULT UNITS REF INTERVALSystemic Lupus Profile SERVICE DIRECTOR Antibodies 0.3 AI 0.0 - 0.9Smith Antibodies <0.2 AI 0.0 - 0.9RA L TEST atex Turbid. <10.0 IU/mL 0.0 - 13.9Antichromatin Antibodies <0.2 AI 0.0 - 0.9Sjogren's Anti-SS-A <0.2 AI 0.0 - 0.9Sjogren's Anti-SS-B <0.2 AI 0.0 - 0.9Anti-DNA (DS) Ab Qn 1 IU/mL 0 - 9 Negative <5 Equivocal 5 - 9 Positive >9 TESTING PERFORMED AT [facility]. ORIGINAL REPORT ON FILE IN LAB CONTAINS ADDITIONAL TEST SITE INFORMSERA N. 65-Ucc-968353:42 ANTINUCLEAR ANTIBODIES DIRECT Comments: [facility] (refer to report for specific site)refer to report for address and phone number TETE-DIRECT Negative (Normal) Comments: Performed at: [address] [id number] Director: Keith Chun PhD, Phone: [phone] 97-Ngb-843735:42 CBC W/Diff, Automated Comments: [facility] [address] [place], [place], [address] Absolute Lymph 1.92 {X10_3/ul} (Normal) Range: 0.83-4.51 [...] 4.2-5.4 WBC 4.8 K/mm3 (Normal) Range: 4.4-11.0 48-Bgo-349995:42 Comprehensive Metabolic Profil Comments: Comments: SLE [id number] SERUM/[facility] [address] [place], [address] GAP 10 (Normal) Range: 5-15 CO2 24.0 [...] A.D.A. criteria.Please note revised GLUCOSE reference range kxcdichvk45/02/2018. 33-Sdw-326401:42 CRP Comments: Comments: SLE [id number] SERUM/[facility] [address] [place], [place], [address] C-REACTIVE PROT < 2.90 mg/L (Normal) Range: 0.0-3.0 Comments: C-Reactive Protein (CRP) provides useful information for thediagnosis, therapy and monitoring of inflammatory processesand associated diseases. For the evaluation of Relative Riskfor Cardiovascular Dise ase, a High Sensitivity CRP (HSCRP)should be ordered. 59-Vss-839446:42 Erythrocyte Sed Rate Comments: [facility] [address] [place], [place], [address] SED RATE 7 mm/h (Normal) Range: 0-20 43-Jnm-181541:58 Basic Metabolic Profile (BMP) Comments: [facility] [address] [place], [place], [address] GAP 13 (Normal) Range: 5-15 CO2 24.0 [...] Comments: Please note revised GLUCOSE reference range puqdpamcm89/02/2018. 14-Vjr-507353:58 CBC W/Diff, Automated Comments: [facility] [address] [place], [place], [address] Absolute Lymph 1.89 {X10_3/ul} (Normal) Range: 0.83-4.51 [...] 4.2-5.4 WBC 4.3 K/mm3 (Abnormal) Range: 4.4-11.0 86-Hcf-078784:58 Partial Thromboplast Time Comments: [facility] [address] [place], [place], [address] PTT 28.6 s (Normal) Range: 24.1-36.2 46-Ici-143752:58 Prothrombin Time w/INR Comments: [facility] [address] [place], [address] INR 1.0 (Normal) PROTIME 13.1 s (Normal) Range: 11.7-14.9 81-Oxr-450334:58 Troponin-I Comments: [facility] [address] [place], [address] TROPONIN-I < 0.015 ng/mL (Normal) Comments: TROPONIN-I EXPECTED VALUES <0.045 Negative 0.045 - 0.590 Consistent with Cardiac Damage > OR = 0.600 Critical Value Not every elevated troponin is indicative of NV. T hesevalues should be used with clinical judgement in examiningthe patient's clinical picture for diagnosis. To establisha diagnosis of NV versus myocardial injury, there must be ademonstrated rise and/ or fall in the troponin values, inaddition to ischemic symptoms, EKG changes, new regionalwall motion abnormality, and/or angiographical evidence. PLEASE NOTE: REFERENCE RANGES EDITED 08/27/1722-Feb-20188:35 CBC W/Diff, Automated Comments: [facility] [address] [place], [place], [address] Absolute Lymph 1.94 {X10_3/ul} (Normal) Range: 0.83-4.51 [...] Range: 4.4-11.0 :35 Erythrocyte Sed Rate Comments: [facility] [address] [place], [place], [address] SED RATE 10 mm/h (Normal) Range: 0-20 :35 Troponin-I Comments: [address] [place], [address] TROPONIN-I < 0.015 ng/mL (Normal) Comments: TROPONIN-I EXPECTED VALUES <0.045 Negative 0.045 - 0.590 Consistent with Cardiac Damage > OR = 0.600 Critical Value Not every elevated troponin is indicative of NV. T hesevalues should be used with clinical judgement in examiningthe patient's clinical picture for diagnosis. To establisha diagnosis of NV versus myocardial injury, there must be ademonstrated rise and/ or fall in the troponin values, inaddition to ischemic symptoms, EKG changes, new regionalwall motion abnormality, and/or angiographical evidence. PLEASE NOTE: REFERENCE RANGES EDITED 08/27/1712-Nov-201782-Yfb-591050:19 CBC W/Diff, Automated Comments: [facility] [address] [place], [place], [address] Absolute Lymph 1.67 {X10_3/ul} (Normal) Range: 0.83-4.51 [...] 4.2-5.4 WBC 4.1 K/mm3 (Abnormal) Range: 4.4-11.0 68-Ycl-361097:19 Comprehensive Metabolic Profil Comments: [facility] [address] [place], [address] GAP 9 (Normal) Range: 5-15 CO2 28.0 [...] Comments: Please note revised GLUCOSE reference range mlufljxul26/02/2018. 25-Wgk-853917:19 Hemoglobin A1c Comments: [facility] [address] [place], [place], [address] HGB A1C 5.4 % (Normal) Range: 4.2-6.3 33-Dba-439384:19 Lipid Profile Comments: [facility] [address] [place], [place], [address](930) VLDL 20 mg/dL (Normal) Range: 5-40 LDL [...] 200-240 mg/dL Borderline >240 mg/dL High Risk 48-Mkp-784561:19 Lipoprotein A <10 nmol/L (Normal) Comments: [facility] (refer to report for specific site)refer to report for address and phone number Comments: Note: Values greater than or equal to 75 nmol/L may indicate an independent risk factor for CHD, but must be evaluated with caution when applied to non- populations due to th e influence of genetic factors on Lp(a) across ethnicities.Performed at: [address] [id number] Director: Keith Chun PhD, Phone: [phone] 24-Rlr-578566:19 Microalb:Creat Ratio,Random UR Comments: [facility] [address] [place], [place], [address] MALB:CREAT 6.0 {mg/g_CRE} (Normal) MICROALBUMIN,UR 5.6 mg/L (Normal) UR CREAT 92.20 mg/dL (Normal) 60-Bqy-123272:19 Thyroid Stim Hormone (TSH) Comments: [facility] [address] [place], [place], [address] TSH 0.89 {uIU/mL} (Normal) Range: 0.358-3.74 48-Dvr-64743:19 HGB A1C (47690) Comments: PATIENT NOT FASTINGPERFORMED BY: [address] [id number] Hemoglobin A1c 5.6 % (Normal) Range: 4.8-5.6 Comments: . Pre-diabetes: 5.7 - 6.4 Diabetes: >6.4 Glycemic control for adults with diabetes: <7.0 :28 HGB A1C (84216) Comments: PATIENT NOT FASTINGPERFORMED BY: [address] [id number] Hemoglobin A1c 5.4 % (Normal) Range: 4.8-5.6 Comments: . Pre-diabetes: 5.7 - 6.4 Diabetes: >6.4 Glycemic control for adults with diabetes: <7.0 :55 HgA1C , Office (69191) HgA1C , Office 5.6 % (Normal) Range: 4.6 - 7.1 Plan of Care Name Dates Details Instructions Influenza A : Reviewed Lab Indication: Influenza A Influenza A : Reviewed Diagnostic Tests Indication: Influenza A Influenza A : Reviewed Senior Business Development Manager Letter Indication: Influenza A BMI 27.0-27.9,adult : [...] Eprescribed prescriptions (G8553) Indication: Osteoporosis Planned Observations CBC & PLATELETS (AUTO) (59121)Indication: Elevated liver function tests On: 24-Gms-047172:41 Request HEPATIC FUNCTION PANEL (93606)Indication: Elevated liver function tests On: 32-Zso-783863:41 Request Systemic Lupus Profile (41077)Indication: Other acute pericarditis On: 03-Gjk-781855:37 Request SED RATE ERYTHROCYTE (60549)Indication: Other acute pericarditis On: 57-Atg-351374:37 Request C-REACTIVE PROTEIN (06002)Indication: Other acute pericarditis On: 89-Esk-182881:37 Request METABOLIC PANEL, COMPREHENSIVE (92279)Indication: Other acute pericarditis On: 48-Vnt-033839:36 Request TETE (ANTINUCLEAR ANTIBODY) (88470)Indication: Other acute pericarditis On: 42-Nbn-812238:36 Request CBC & PLATELETS (AUTO) (91095)Indication: Other acute pericarditis On: 42-Fwz-546037:36 Request TSH (THYROID STIMULATING HORMONE) (06812)Indication: Impaired fasting glucose On: :53 Request MICROALBUMIN: CREATININE RATIO (39470) AND (14334)Indication: Impaired fasting glucose On: :53 Request METABOLIC PANEL, COMPREHENSIVE (44490)Indication: Impaired fasting glucose On: :53 Request LIPOPROTEIN, BLD, BY NMR (61786)Indication: Other hyperlipidemia On: :53 Request LIPID PANEL (25975)Indication: Other hyperlipidemia On: :53 Request CBC with auto diff (24320)Indication: Impaired fasting glucose On: :53 Request HGB A1C (50371)Indication: Impaired fasting glucose On: :53 Request URINALYSIS (86299)Indication: Hematuria, microscopic On: 20-Pgm-43513:05 Request CALCIFEDIOL (36296)Indication: Secondary hyperparathyroidism On: 30-Fuf-971357:36 Request PARATHORMONE (28847)Indication: Secondary hyperparathyroidism On: :36 Request TSH (81907)Indication: Impaired fasting glucose On: :36 Request URINALYSIS, W/ MICRO (48526)Indication: Impaired fasting glucose On: 79-Eak-863398:36 Request MICROALBUMIN: CREATININE RATIO (02218) AND (15493)Indication: Impaired fasting glucose On: :36 Request METABOLIC PANEL, COMPREHENSIVE (13399)Indication: Impaired fasting glucose On: :36 Request LIPID PANEL (88701)Indication: Impaired fasting glucose On: :36 Request CBC W/AUTO DIFF WBC (63311)Indication: Impaired fasting glucose On: :36 Request HGB A1C (03977)Indication: Impaired fasting glucose On: 55-Mex-597079:34 Request TSH (60986)Indication: Impaired fasting glucose On: 66-Jaw-846582:34 Request URINALYSIS, W/ MICRO (28007)Indication: Impaired fasting glucose On: 09-Mxp-380419:34 Request MICROALBUMIN: CREATININE RATIO (96162) AND (70079)Indication: Impaired fasting glucose On: 87-Bvd-932757:34 Request METABOLIC PANEL, COMPREHENSIVE (01976)Indication: Impaired fasting glucose On: 30-Mpy-505821:34 Request LIPID PANEL (90409)Indication: Other hyperlipidemia On: 30-Dnx-466211:34 Request CBC W/AUTO DIFF WBC (85033)Indication: Impaired fasting glucose On: 01-Evk-968086:34 Request PARATHORMONE (79455)Indication: Secondary hyperparathyroidism On: 1-Wkd-066330:47 Request METABOLIC PANEL, COMPREHENSIVE (77446)Indication: Impaired fasting glucose On: 4-Agh-441663:46 Request LIPID PANEL (88850)Indication: Other hyperlipidemia On: 2-Xij-170520:46 Request Vitamin D Hydroxy (93366)Indication: Secondary hyperparathyroidism On: 6-Pmq-556796:46 Request HGB A1C (09541)Indication: Impaired fasting glucose On: 4-Pyn-279422:45 Request Vitamin D Hydroxy (41136)Indication: Osteoporosis On: 9-Blk-248754:45 Request PARATHORMONE (46694)Indication: Secondary hyperparathyroidism On: 91-Wff-010248:16 Request LIPID PANEL (46943)Indication: Secondary hyperparathyroidism On: 26-Rus-058949:16 Request METABOLIC PANEL, COMPREHENSIVE (37791)Indication: Secondary hyperparathyroidism On: 47-Eon-676824:16 Request LIPID PANEL (15040)Indication: Other hyperlipidemia On: 58-Efa-561804:16 Request LIPID PANEL (94893)Indication: Other hyperlipidemia On: 1-Vtu-507583:35 Request METABOLIC PANEL, COMPREHENSIVE (56466)Indication: Osteoporosis On: 1-Mdn-432334:34 Request Vitamin D Hydroxy (95941)Indication: Impaired Fasting Glucose (Renamed from Elevated fasting blood sugar) On: 8-Bgc-201636:34 Request PARATHORMONE (86913)Indication: Secondary hyperparathyroidism On: :34 Request CBC W/AUTO DIFF WBC (61535)Indication: Other hyperlipidemia On: 9-Jlg-278067:07 Request METABOLIC PANEL, COMPREHENSIVE (52956)Indication: Other hyperlipidemia On: 3-Pgf-077269:07 Request LIPID PANEL (43981)Indication: Other hyperlipidemia On: 6-Vnw-719966:04 Request MICROALBUMIN: CREATININE RATIO (48194) AND (85956)Indication: Impaired Fasting Glucose (Renamed from Elevated fasting blood sugar) On: 0-Fmq-808287:04 Request URINE CALCIUM DARYL TIMED 24 Hour (25594)Indication: Osteoporosis On: 0-Mbz-325175:54 Request Vitamin D Hydroxy (62513)Indication: Osteoporosis On: 7-Cuv-666511:51 Request TSH (12710)Indication: Osteoporosis On: 9-Fhw-027387:51 Request SED RATE ERYTHROCYTE (61728)Indication: Osteoporosis On: 0-Juq-416404:51 Request PHOSPHORUS (86693)Indication: Osteoporosis On: 3-Dxh-496088:51 Request PARATHORMONE (06888)Indication: Osteoporosis On: 8-Ats-012040:51 Request Planned Encounters Medical; 6 Month FU - On: 20-May-2018 9:45 [facility] Renu Mejia DO, DO, Kathleen Planned Procedures LIMITED ECHOCARDIOGRAPHY (15071)By: On: 04-Mar-2018 Intent Renu Mejia DO, DO, Kathleen ELECTROCARDIOGRAM, COMPLETE (ECG) On: 14-Nov-2017 Intent (73710)By: Renu Mejia DO Comments: nsr no acute chg inc small ivcd in v1-- faxed to cardio --asx Renu LAKE DEXA SCAN AXIAL SKELETON (57797)By: On: 07-Jun-2017 Intent Renu Mejia DO, DO, Kathleen PARATHYROID SCAN (21873)By: Jackie LAKE, On: 28-Jan-2016 Intent Renu Jefferson DO MAMMOGRAM, SCREENING, BOTH BREAST On: 21-Jun-2015 Intent (50575)By: Gosia Cain DO Breast Ultrasound - LeftBy: Rusty KERR, On: 25-Dec-2014 Intent Kelley M INJECTION, PROLIA (J0897)By: Ant LAKE, On: 14-Dec-2014 Intent Gosia Gallardo Comments: lot:[id number]:route:SQdose:prefilled syringeSite:Rgiven by: Elvin Shi CMA MAMMOGRAM, SCREENING, BOTH BREAST On: 18-Aug-2014 Intent (83601)By: Gosia Cain DO DEXA SCAN AXIAL SKELETON (61792)By: Ant On: 18-Aug-2014 Intent Gosia LAKE Planned [...] Osteoporosis : Patient Instructions Indication: Osteoporosis Encounters Lab Order On: 12-Mar-2018 10:40 Encounter Diagnosis: [...] regular soda and restricting calories. 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 screening, colonoscopy (2007?), s creening, mammography (2013), screening, Pap smear (years ago- had total [...] am. A1c was 5.5 and dietican at [facility] suggested her to monitor it also.- has gained 10 pounds in last year - she feels like she is a food a holic- she started at [facility] last week Encounter Diagnosis: Osteoporosis (733.00), Impaired Fasting Glucose (Renamed from Elevated fasting blood sugar), Hyperlipidemia (272.4), screening [facility]
--- OUTSIDE RECORDS SUMMARY | 2018-05-14 12:13 | XMS RPT_ITS | Continuity of Care Document ---
:1970 Author Organization [facility] Address [address] [place] [address] Phone Care Team Providers Name Role Phone Renu Mejia DO Unavailable Gosia Cain DO Unavailable Gravius, Lulu Unavailable Unavailable Ron Downs Unavailable Unavailable Mannatalyk, Nadeen Unavailable Unavailable Long WHARF HAND, Meghan L Unavailable Unavailable Unavailable Unavailable Problems [...] Postmenopausal estrogen deficiency (Z78.0, V49.81) Comments: s/p [facility] 12/30 Status: Active Pregnancies () Comments: [...] Tablet 1 tab bid (20 MG) Active PredniSONE 5 MG Oral Tablet 1 (one) Tablet uad titrating down for 15 days Quantity: 30 {Tablet} Refills: 0 Ordered:12-Mar-2018 Meghan Hammond LPN Start : 12-Mar-2018 Active Comments:3 tablets qd x 5 days, 2 tablets qd x 5 days and 1 tablet qd x 5 days. Prolia 60 MG/ML Subcutaneous Solution 1 injection Solution q 6months for 0 days Quantity: 1 {Pre-filled_Pen_Syringe} Refills: 1 Ordered:07-Jun-2017 Jackie LAKEKwabena DO Renu Start : 07-Jun-2017 Active Prolia 60 MG/ML Subcutaneous Solution 1 injection Solution q 6months for 0 days Quantity: 1 {Milliliter} Refills: 1 Ordered:07-Jun-2017 Jackie LAKEKwabena DO Renu Start : 07-Jun-2017 Active Vitamin D3 5000 UNIT Oral Capsule 1 (one) Capsule qd for 0 days Quantity: 30 {Capsule} Refills: 11 Ordered:20-Mar-2017 Jackie LAKEKwabena DO Renu Start : 20-Mar-2017 Active Adipex-P 37.5 [...] Limited Study Result: Comments: See Note; NOTES: [facility] Cardiovascular Services [address] [place] [address] Echo, Limited Study 03/05/18 1100 MR#: [id number] Acct: [id number] Name: PITO HEDRICK Rep #: [id number] : 1970 47 From: Edi Alfred MD Attending Dr: Renu Mejia DO [facility]: Renu Mejia DO Date: 03/05/18 Location: [facility] Sex: F C Admitted: [facility] For Study: Acute pericarditis Procedure This was [...] Physician: Renu Mejia Performed By: Virginia Galeano HARSHAL 03/05/18 1535 Date Edi Alfred MD CC: Renu Mejia DO Date Dictated: 03/05/18 1100 Date Transcribed: 03/05/181534 Sugar Controller: Signed 04-Mar-2018 Emergency Department Summary Result: Comments: See Note; NOTES: [facility] Medical Records Department [address] [place] [address] Emergency Department Summary 03/04/18 1107 MR#: [id number] Acct: [id number] Name: LIV HEDRICK Rep #: [id number] : 1970 47 From: Miky Gibson MD [...] of pericarditis This note was generated with [employer]ation software. It may contain incorrect words, spelling, and punctuation that were not noted in review of the chart prior to signing ED Disposition - Plan for ED Patient: Chief Complaint: Chest Pain Instructions: ED Chest Pain Pericarditis Prescriptions: Hydrocodone Bitart/Apap 5-325 [[place]brook 5MG- 325MG] 1 tab PO Q6H PRN PRN 3 Days #10 tab PRN Reason: Pain Prednisone 10 mg PO UD #33 tab Referrals: Renu Mejia DO [Primary Care Provider] - What to do if you have Problems For any increased pain, shortness of breath, bleeding, nausea or vomiting, chest pain, or any unexpected problems, contact your Primary Care Provider. Call [facility] ([phone]) or report to the closest Emergency Room. Call 911 if necessary. 03/04/18 1422 <Electronically signed by iMky Gibson MD> Date ___ Miky Gibson MD Cosigner Signature (If Indicated): Date CC: Renu Mejia DO 04-Mar-2018 Chest 1 View (Portable) Result: Comments: See Note; NOTES: [facility] Imaging Services [address] [place] [address] Chest 1 View (Portable) MR#: [id number] Acct: [id number] Name: LIV HEDRICK Rep #: [id number] : 1970 F 47 From: Gauri Brooke MD PCP: Renu Mejia DO Status: DEP ER Study: Chest 1 View (Portable) Date of Exam: 03/04/18 Exam# [id number] Ordering Dr: Miky Gibson MD STUDY: X-RAY [...] CC: Renu Mejia DO; Miky Gibson MD Sugar Controller: Signed 04-Mar-2018 CTA Chest W/WO Contrast Result: Comments: See Note; NOTES: [facility] Imaging Services [address] [place] [address] CTA Chest W/WO Contrast MR#: [id number] Acct: [id number] Name: LIV HEDRICK Rep #: [id number] : 1970 F 47 From: Leroy Aj MD PCP: Renu Mejia DO Status: REG Study: CTA Chest W/WO Contrast Date of Exam: 03/04/18 Exam# [id number] Ordering Dr: Miky Gibson MD [facility] DY: CTA CHEST REASON FOR EXAM: Female, [...] Signed: Mamta Douglas at 12:32 EST Tel [phone], Service support , CC: Renu Mejia DO; Miky Gibson MD Sugar Controller: Signed 22-Feb-2018 Emergency Department Summary Result: Comments: See Note; NOTES: [facility] Medical Records Department [address] [place] [address] Emergency Department Summary 02/22/18 1217 MR#: [id number] Acct: [id number] Name: LIV HEDRICK Rep #: [id number] : 1970 47 From: Garett Anderson MD [...] compared to EKG from 9 years ago. PA interval normal. QRS duration normal. QT interval is prolonged. [place] is normal. CBC unremarkable. Troponin normal. ESR [...] influenza A This note was generated with [employer] dictation software . It may contain incorrect [...] contac t your Primary Care Provider. Call [facility] ([phone]) or report to the closest Emergency Room. Call 911 if necessary. 02/22/18 1222 <Electronically signed by Garett Anderson MD> Date Garett Anderson MD Cosigner Signature (If Indicated): Date CC: Renu Mejia DO; Cody Lomas MD 22-Feb-2018 Echocardiogram Complete Result: Comments: See Note; NOTES: [facility] Cardiovascular Services [address] [place] [address] Echo Complete 02/22/18 1020 MR#: [id number] Acct: [id number] Name: LIV HEDRICK Rep #: [id number] : 1970 47 From: Cody Lomas MD [...] Dictated: 02/22/18 1020 Date Transcribed: 02/22/18 1202 Sugar Controller: Signed 22-Feb-2018 Chest PA and Lateral Result: Comments: See Note; NOTES: [facility] Imaging Services [address] [place] [address] Chest PA and Lateral MR#: [id number] Acct: [id number] Name: LIV HEDRICK Rep #: [id number] : 1970 F 47 From: Leroy Aj MD PCP: Renu Mejia DO Status: PRE ER Study: Chest PA and Lateral Date of Exam: 02/22/18 Exam# [id number] Ordering Dr: Garett Anderson MD STUDY: X-RAY [...] Leroy Aj MD at 9:14 EST Tel [phone], Service support , CC: Renu Mejia DO; Garett Anderson MD Sugar Controller: Signed 04-Feb-2018 Urgent Care Visit Report Result: Comments: See Note; NOTES: [facility] [address] [place] [address] OFFICE VISIT Date of Service: 02/04/18 MR#: [id number] Acct: [id number] Name: LVI HEDRICK Mouna ep #: [id number] : 1970 Provider: Yoan FORTE Age/Sex: 47/F Location: [facility] Status: Signed Intake Vital Signs02/04/18 Height 5 [...] is a non-smoker. She has taken no akoi-kcy-jodyjzq products to assist with her symptoms. She [...] ab ove. This note was generated with [employer] dictation software. It may contain incorrect words, [...] Study (HP) Result: Comments: See Note; NOTES: [facility] Imaging Services [address] [place] [address] Dexa Bone Density Study (HP) MR#: [id number] Acct: [id number] Name: BERNARDLIV Sherie Rep # : [id number] : 1970 F 46 From: Leroy Aj MD PCP: Status: REG CLI Study: Dexa Bone Density Study (HP) Date of Exam: 06/28/17 Exam# [id number] Ordering Dr: Renu Mejia DO STUDY: DU [...] Leroy Aj MD at 10:50 EDT Tel [phone], Service support , CC: Renu Mejia DO Sugar Controller: Signed Family History Unknown Family Member Name Dates Details Father Comments: living aml and dm - had stem cell transplant Status: Active Mother Comments: mother living - dm Status: Active Social History Name Dates Details Alcohol Use: Occasional alcohol use. Status: Active Caffeine Use Comments: 1 cup qd Status: Active Current Work/Study Status Comments: [email or web address] [facility] Status: Active Living Situation Comments: lives [...] kg/m2 Body Surface Area Calculated 1.7 m2 68-Jvo-25568:10 Pulse 100 /min Comments: Pattern: Regular Respiration [...] 1.74 m2 Results Date Description Value Details 18-Pyb-161178:47 Miscellaneous Lab Procedure Comments: Comments: SLE [id number] SERUM/RTTest(s) Ordered: SLE [id number] [facility] [address] [place], [place], [id number] [facility] (Normal) Comments: TEST RESULT UNITS REF INTERVALSystemic Lupus Profile 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 <10.0 IU/mL 0.0 - 13.9Antichromatin Antibodies <0.2 AI 0.0 - 0.9Sjogren's Anti-SS-A <0.2 AI 0.0 - 0.9Sjogren's Anti-SS-B <0.2 AI 0.0 - 0.9Anti-DNA (DS) Ab Qn 1 IU/mL 0 - 9 Negative <5 Equivocal 5 - 9 Positive >9 TESTING PERFORMED AT [facility]. ORIGINAL REPORT ON FILE IN LAB CONTAINS ADDITIONAL TEST SITE INFORMATIO N. 15-Djm-970475:42 ANTINUCLEAR ANTIBODIES DIRECT Comments: [facility] (refer to report for specific site)refer to report for address and phone number TETE-DIRECT Negative (Normal) Comments: Performed at: [address] [id number] Director: Keith Chun PhD, Phone: [phone] 68-Yac-417510:42 CBC W/Diff, Automated Comments: [facility] [address] [place], [place], [id number] Absolute Lymph 1.92 {X10_3/ul} (Normal) Range: 0.83-4.51 [...] 4.2-5.4 WBC 4.8 K/mm3 (Normal) Range: 4.4-11.0 19-Jml-508520:42 Comprehensive Metabolic Profil Comments: Comments: SLE [id number] [facility] [address] [place], [place], [address] GAP 10 (Normal) Range: 5-15 CO2 24.0 [...] A.D.A. criteria.Please note revised GLUCOSE reference range awbxdjpes87/02/2018. 82-Vkc-452224:42 CRP Comments: Comments: SLE [id number] [facility] [address] [place], [place], [address] C-REACTIVE PROT < 2.90 mg/L (Normal) Range: 0.0-3.0 Comments: C-Reactive Protein (CRP) provides useful information for thediagnosis, therapy and monitoring of inflammatory processesand associated diseases. For the evaluation of Relative Riskfor Cardiovascular Dise ase, a High Sensitivity CRP (HSCRP)should be ordered. 38-Oyo-870955:42 Erythrocyte Sed Rate Comments: [facility] [address] [place], [place], [address] SED RATE 7 mm/h (Normal) Range: 0-20 07-Pyb-393400:58 Basic Metabolic Profile (BMP) Comments: [facility] [address] [place], [place], [address] GAP 13 (Normal) Range: 5-15 CO2 24.0 [...] Comments: Please note revised GLUCOSE reference range dytvfsyzj20/02/2018. 21-Isj-014883:58 CBC W/Diff, Automated Comments: [facility] [address] [place], [address] Absolute Lymph 1.89 {X10_3/ul} (Normal) Range: 0.83-4.51 [...] 4.2-5.4 WBC 4.3 K/mm3 (Abnormal) Range: 4.4-11.0 27-Fel-803895:58 Partial Thromboplast Time Comments: [facility] [address] [place], [place], [address] PTT 28.6 s (Normal) Range: 24.1-36.2 32-Zek-860450:58 Prothrombin Time w/INR Comments: [facility] [address] [place], [id number] INR 1.0 (Normal) PROTIME 13.1 s (Normal) Range: 11.7-14.9 21-Ycq-877098:58 Troponin-I Comments: [facility] [address] [place], [place], [address] TROPONIN-I < 0.015 ng/mL (Normal) Comments: TROPONIN-I EXPECTED VALUES <0.045 Negative 0.045 - 0.590 Consistent with Cardiac Damage > OR = 0.600 Critical Value Not every elevated troponin is indicative of NE. T hesevalues should be used with clinical judgement in examiningthe patient's clinical picture for diagnosis. To establisha diagnosis of NE versus myocardial injury, there must be ademonstrated rise and/ or fall in the troponin values, inaddition to ischemic symptoms, EKG changes, new regionalwall motion abnormality, and/or angiographical evidence. PLEASE NOTE: REFERENCE RANGES EDITED 17:35 CBC W/Diff, Automated Comments: [facility] [address] [place], [place], [address] Absolute Lymph 1.94 {X10_3/ul} (Normal) Range: 0.83-4.51 [...] Range: 4.4-11.0 :35 Erythrocyte Sed Rate Comments: [address] [place], [place], [address] SED RATE 10 mm/h (Normal) Range: 0-20 :35 Troponin-I Comments: [address] [place], [address] TROPONIN-I < 0.015 ng/mL (Normal) Comments: TROPONIN-I EXPECTED VALUES <0.045 Negative 0.045 - 0.590 Consistent with Cardiac Damage > OR = 0.600 Critical Value Not every elevated troponin is indicative of NE. T hesevalues should be used with clinical judgement in examiningthe patient's clinical picture for diagnosis. To establisha diagnosis of NE versus myocardial injury, there must be ademonstrated rise and/ or fall in the troponin values, inaddition to ischemic symptoms, EKG changes, new regionalwall motion abnormality, and/or angiographical evidence. PLEASE NOTE: REFERENCE RANGES EDITED 08/27/1712-Nov-201705-Zyu-359939:19 CBC W/Diff, Automated Comments: [address] [place], [address] Absolute Lymph 1.67 {X10_3/ul} (Normal) Range: 0.83-4.51 [...] 4.2-5.4 WBC 4.1 K/mm3 (Abnormal) Range: 4.4-11.0 78-Pcn-786102:19 Comprehensive Metabolic Profil Comments: [facility] [address] [place], [address] GAP 9 (Normal) Range: 5-15 CO2 28.0 [...] Comments: Please note revised GLUCOSE reference range uuzmywxst86/02/2018. 42-Lck-083029:19 Hemoglobin A1c Comments: [facility] Toq[address]ises[address]8 [facility] [place], [place], [address] HGB A1C 5.4 % (Normal) Range: 4.2-6.3 96-Vnf-882248:19 Lipid Profile Comments: [facility] [address] [facility] [address]. [place], [place], [address] VLDL 20 mg/dL (Normal) Range: 5-40 LDL [...] 200-240 mg/dL Borderline >240 mg/dL High Risk 13-Jlj-676573:19 Lipoprotein A <10 nmol/L (Normal) Comments: [facility] (refer to report for specific site)refer to report for address and phone number Comments: Note: Values greater than or equal to 75 nmol/L may indicate an independent risk factor for CHD, but must be evaluated with caution when applied to non- populations due to th e influence of genetic factors on Lp(a) across ethnicities.Performed at: [address] [id number] Director: Keith Chun PhD, Phone: [phone] 28-Xku-882639:19 Microalb:Creat Ratio,Random UR Comments: [facility] [address] [place], [place], [id number] MALB:CREAT 6.0 {mg/g_CRE} (Normal) MICROALBUMIN,UR 5.6 mg/L (Normal) UR CREAT 92.20 mg/dL (Normal) 44-Mju-537317:19 Thyroid Stim Hormone (TSH) Comments: [facility] [address]25[address] [facility] [place], [address] TSH 0.89 {uIU/mL} (Normal) Range: 0.358-3.74 38-Zhv-38047:19 HGB A1C (55025) Comments: PATIENT NOT FASTINGPERFORMED BY: [address] [id number] Hemoglobin A1c 5.6 % (Normal) Range: 4.8-5.6 Comments: . Pre-diabetes: 5.7 - 6.4 Diabetes: >6.4 Glycemic control for adults with diabetes: <7.0 59-Cwh-79927:28 HGB A1C (86694) Comments: PATIENT NOT FASTINGPERFORMED BY: [address] [id number] Hemoglobin A1c 5.4 % (Normal) Range: 4.8-5.6 Comments: . Pre-diabetes: 5.7 - 6.4 Diabetes: >6.4 Glycemic control for adults with diabetes: <7.0 8-Xug-706251:55 HgA1C , Office (08674) HgA1C , Office 5.6 % (Normal) Range: 4.6 - 7.1 Plan of Care Name Dates Details Instructions Influenza A : Reviewed Lab Indication: Influenza A Influenza A : Reviewed Diagnostic Tests Indication: Influenza A Influenza A : Reviewed Trials Manager Letter Indication: Influenza A BMI 27.0-27.9,adult [...] Osteoporosis Planned Observations CBC & PLATELETS (AUTO) (07215)Indication: Elevated liver function tests On: :41 Request HEPATIC FUNCTION PANEL (30146)Indication: Elevated liver function tests On: :41 Request Systemic Lupus Profile (73773)Indication: Other acute pericarditis On: :37 Request SED RATE ERYTHROCYTE (66847)Indication: Other acute pericarditis On: 67-Vaq-001210:37 Request C-REACTIVE PROTEIN (57813)Indication: Other acute pericarditis On: 62-Txp-621817:37 Request METABOLIC PANEL, COMPREHENSIVE (61576)Indication: Other acute pericarditis On: 76-Tev-472700:36 Request TETE (ANTINUCLEAR ANTIBODY) (98195)Indication: Other acute pericarditis On: 37-Fjv-527101:36 Request CBC & PLATELETS (AUTO) (45273)Indication: Other acute pericarditis On: 10-Mzj-846861:36 Request TSH (THYROID STIMULATING HORMONE) (79819)Indication: Impaired fasting glucose On: :53 Request MICROALBUMIN: CREATININE RATIO (89409) AND (60420)Indication: Impaired fasting glucose On: :53 Request METABOLIC PANEL, COMPREHENSIVE (67244)Indication: Impaired fasting glucose On: :53 Request LIPOPROTEIN, BLD, BY NMR (52904)Indication: Other hyperlipidemia On: :53 Request LIPID PANEL (67354)Indication: Other hyperlipidemia On: :53 Request CBC with auto diff (59519)Indication: Impaired fasting glucose On: :53 Request HGB A1C (45676)Indication: Impaired fasting glucose On: 01-Gzp-61348:53 Request URINALYSIS (78203)Indication: Hematuria, microscopic On: 01-Uid-08405:05 Request CALCIFEDIOL (67539)Indication: Secondary hyperparathyroidism On: 16-Rjj-149307:36 Request PARATHORMONE (17766)Indication: Secondary hyperparathyroidism On: :36 Request TSH (26984)Indication: Impaired fasting glucose On: :36 Request URINALYSIS, W/ MICRO (28635)Indication: Impaired fasting glucose On: :36 Request MICROALBUMIN: CREATININE RATIO (57211) AND (51761)Indication: Impaired fasting glucose On: :36 Request METABOLIC PANEL, COMPREHENSIVE (30867)Indication: Impaired fasting glucose On: :36 Request LIPID PANEL (91711)Indication: Impaired fasting glucose On: :36 Request CBC W/AUTO DIFF WBC (84190)Indication: Impaired fasting glucose On: :36 Request HGB A1C (93844)Indication: Impaired fasting glucose On: :34 Request TSH (63568)Indication: Impaired fasting glucose On: :34 Request URINALYSIS, W/ MICRO (06598)Indication: Impaired fasting glucose On: 14-Cvu-413089:34 Request MICROALBUMIN: CREATININE RATIO (63056) AND (59394)Indication: Impaired fasting glucose On: :34 Request METABOLIC PANEL, COMPREHENSIVE (04567)Indication: Impaired fasting glucose On: 37-Ibd-879504:34 Request LIPID PANEL (85282)Indication: Other hyperlipidemia On: 91-Yag-157065:34 Request CBC W/AUTO DIFF WBC (57940)Indication: Impaired fasting glucose On: 33-Ddk-717304:34 Request PARATHORMONE (51098)Indication: Secondary hyperparathyroidism On: 7-Hnz-071635:47 Request METABOLIC PANEL, COMPREHENSIVE (56119)Indication: Impaired fasting glucose On: 2-Eyb-181130:46 Request LIPID PANEL (64180)Indication: Other hyperlipidemia On: :46 Request Vitamin D Hydroxy (39928)Indication: Secondary hyperparathyroidism On: 0-Mpn-519658:46 Request HGB A1C (68435)Indication: Impaired fasting glucose On: :45 Request Vitamin D Hydroxy (69314)Indication: Osteoporosis On: 4-Okr-618237:45 Request PARATHORMONE (26936)Indication: Secondary hyperparathyroidism On: 94-Qrs-711729:16 Request LIPID PANEL (17866)Indication: Secondary hyperparathyroidism On: 71-Bwq-431031:16 Request METABOLIC PANEL, COMPREHENSIVE (97643)Indication: Secondary hyperparathyroidism On: 45-Zrh-444824:16 Request LIPID PANEL (78407)Indication: Other hyperlipidemia On: 92-Iar-820564:16 Request LIPID PANEL (11133)Indication: Other hyperlipidemia On: 4-Jtf-559797:35 Request METABOLIC PANEL, COMPREHENSIVE (51250)Indication: Osteoporosis On: 0-Iif-412716:34 Request Vitamin D Hydroxy (01176)Indication: Impaired Fasting Glucose (Renamed from Elevated fasting blood sugar) On: 0-Efz-221747:34 Request PARATHORMONE (45189)Indication: Secondary hyperparathyroidism On: 3-Qlp-667510:34 Request CBC W/AUTO DIFF WBC (94047)Indication: Other hyperlipidemia On: 8-Zzg-232595:07 Request METABOLIC PANEL, COMPREHENSIVE (74287)Indication: Other hyperlipidemia On: 1-Nlp-451244:07 Request LIPID PANEL (33360)Indication: Other hyperlipidemia On: 4-Png-909012:04 Request MICROALBUMIN: CREATININE RATIO (25842) AND (89404)Indication: Impaired Fasting Glucose (Renamed from Elevated fasting blood sugar) On: 1-Vjp-271867:04 Request URINE CALCIUM DARYL TIMED 24 Hour (09387)Indication: Osteoporosis On: 9-Gny-764017:54 Request Vitamin D Hydroxy (55727)Indication: Osteoporosis On: 6-Wdh-036724:51 Request TSH (30871)Indication: Osteoporosis On: :51 Request SED RATE ERYTHROCYTE (33925)Indication: Osteoporosis On: 0-Eeh-682647:51 Request PHOSPHORUS (59777)Indication: Osteoporosis On: 8-Hid-623162:51 Request PARATHORMONE (40997)Indication: Osteoporosis On: 1-Zfy-774134:51 Request Planned Encounters Medical; 6 Month FU - On: 20-May-2018 9:45 [facility] Renu Mejia DO, DO, Kathleen Planned Procedures LIMITED ECHOCARDIOGRAPHY (21154)By: On: 04-Mar-2018 Intent Renu Mejia DO, DO, Kathleen ELECTROCARDIOGRAM, COMPLETE (ECG) On: 14-Nov-2017 Intent (63262)By: Renu Mejia DO Comments: nsr no acute chg inc small ivcd in v1-- faxed to cardio --asx Renu LAKE DEXA SCAN AXIAL SKELETON (38470)By: On: 07-Jun-2017 Intent Renu Mejia DO, DO, Kathleen PARATHYROID SCAN (37787)By: Jackie LAKE, On: 28-Jan-2016 Intent Renu Jefferson DO MAMMOGRAM, SCREENING, BOTH BREAST On: 21-Jun-2015 Intent (48298)By: Gosia Cain DO Breast Ultrasound - LeftBy: Rusty KERR, On: 25-Dec-2014 Intent Kelley M INJECTION, PROLIA (J0897)By: Ant LAKE, On: 14-Dec-2014 Intent Gosia Reyna Comments: lot:[id number]:route:SQdose:prefilled syringeSite:Rgiven by: Elvin Shi CMA MAMMOGRAM, SCREENING, BOTH BREAST On: 18-Aug-2014 Intent (91615)By: Gosia Cain DO DEXA SCAN AXIAL SKELETON (71562)By: Ant On: 18-Aug-2014 Intent Gosia LAKE Planned [...] Instructions Indication: Osteoporosis Encounters Phone Encounter On: 12-Mar-2018 15:53 Encounter Diagnosis: [...] am. A1c was 5.5 and dietican at [facility] suggested her to monitor it also.- has gained 10 pounds in last year - she feels like she is a food a holic- she started at [employer] last week Encounter Diagnosis: Osteoporosis (733.00), Impaired Fasting Glucose (Renamed from Elevated fasting blood sugar), Hyperlipidemia (272.4), screening [facility] Payers [facility] Caio Hedrick; sami guarantor
--- OUTSIDE RECORDS SUMMARY | 2018-05-14 12:14 | XMS RPT_ITS ---
:1970 Author Organization [place] Support Name Relationship Address Phone SANJANA TAMIKA Unavailable [address] + [facility] [place] [address] GE Unavailable [address] + [place] [address] ROSA WAGNER Unavailable [address] + [place] [address] CAILET, TAMIKA Unavailable [address] + [place] [address] GE Unavailable [address] + [place] [address] ROSA WAGNER Unavailable [address] + [place] [address] CAILET, TAMIKA Unavailable [address] + [place] [address] GE Unavailable [address] + [place] [address] ROSA WAGNER Unavailable [address] + [place] [address] CAILET, TAMIKA Unavailable [address] + [place] [address] GE Unavailable [address] + [place] [address] ROSA WAGNER Unavailable [address] + [place] [address] CAILET, TAMIKA Unavailable [address] + [place] [address] GE Unavailable [address] + [place] [address] WAGNER, ROSA Unavailable [address] + [place] [address] CAILET, TAMIKA Unavailable [address] + [facility] [place] [address] GE Unavailable [address] + [place] [address] WAGNER, ROSA Unavailable [address] + [place] [address] CAILET, TAMIKA Unavailable [address] + [facility] [place] [address] GE Unavailable [address] + [place] [address] WAGNER, ROSA Unavailable [address] + [place] [address] CAILET, TAMIKA Unavailable [address] + [facility] [place] [address] GE Unavailable [address] + [place] [address] WAGNER, ROSA Unavailable [address] + [place] [address] CAILET, TAMIKA Unavailable Unavailable + GE Unavailable [address] + [place] [address] WAGNER, ROSA Unavailable [address] + [place] [address] CAILET, TAMIKA Unavailable Unavailable + GE Unavailable [address] + [place] [address] WAGNER, ROSA Unavailable [address] + [place] [address] CAILET, TAMIKA Unavailable Unavailable + GE Unavailable [address] + [place] [address] WAGNER, ROSA Unavailable [address] + [place] [address] CAILET, TAMIKA Unavailable Unavailable + GE Unavailable [address] + [place] [address] WAGNER, ROSA Unavailable [address] [facility] [address] + [place] [address] TAMIKA ALLAN Unavailable Unavailable + GE Unavailable [address] [facility] [address] + [place] [address] WAGNER, ROSA Unavailable [address] [facility] [address] + [place] [address] LUCINA, JESUS Unavailable [address] + [place] [address] GE Unavailable [address] [facility] [address] + [place] [address] WAGNER, ROSA Unavailable [address] [facility] [address] + [place] [address] LUCINA, JESUS Unavailable [address] + [place] [address] GE Unavailable [address] [facility] [address] + [place] [address] WAGNER, ROSA Unavailable [address] + [place] [address] LUCINA, JESUS Unavailable [address] + [place] [address] GE Unavailable [address] [facility] [address] + [place] [address] WAGNER, ROSA Unavailable [address] [facility] [address] + [place] [address] Care Team Providers Name Role Phone Jackie DORenu Attending Unavailable Fast DO, Gosia A Referring Unavailable Jackie DO, Renu Consulting Unavailable Tima, Erie Attending Unavailable Jackie, Renu Referring Unavailable Moodispaw, Cody Attending Unavailable Jackie, Renu Referring Unavailable Jackie, Renu Attending Unavailable Jackie, Renu Referring Unavailable Jackie, Renu Primary Care Unavailable Jackie, Renu Attending Unavailable Jackie, Renu Referring Unavailable Jackie, Renu Primary Care Unavailable Jackie, Renu Attending Unavailable Jackie, Renu Primary Care Unavailable Jackie, Renu Referring Unavailable Jackie, Renu Attending Unavailable Jackie, Renu Referring Unavailable Jackie, Renu Primary Care Unavailable Jackie, Renu Primary Care Unavailable Miky Gibson Attending Unavailable Miky Gibson Referring Unavailable Koram, Amy Fe Admitting Unavailable Koram, Amy Fe Attending Unavailable Jackie, Renu Primary Care Unavailable Koram, Amy Fe Consulting Unavailable Koram, Amy Fe Admitting Unavailable Eddie Rivera Attending Unavailable Jackie, Renu Primary Care Unavailable Koram, Amy Fe Consulting Unavailable Koram, Amy Fe Admitting Unavailable Cody Lomas Attending Unavailable Jackie, Renu Primary Care Unavailable Koram, Amy Fe Consulting Unavailable Koram, Amy Fe Admitting Unavailable Koram, Amy Fe Attending Unavailable Jackie, Renu Primary Care Unavailable Koram, Amy Fe Consulting Unavailable Jackie, Renu Primary Care Unavailable Koram, Amy Fe Admitting Unavailable Koram, Amy Fe Attending Unavailable Yoan Garza Attending Unavailable Jackie, Renu Referring Unavailable Jackie, Renu Attending Unavailable Jackie, Renu Primary Care Unavailable Jackie, Renu Referring Unavailable Jackie, Renu Attending Unavailable Jackie, Renu Primary Care Unavailable Jackie, Renu Referring Unavailable Jackie, Renu Attending Unavailable PROBLEMS PROBLEMS DATE TYPE CONDITION / CODE ATTENDING STATUS SOURCE 04/13/2018 Unknown R94.5 - Abnormal Jackie, Active [place] results of liver [facility] function studies / Hospital R94.5(ICD-10) Repository 03/28/2018 Unknown I30.9 - Acute MoodCody caba Active [place] pericarditis, Community unspecified / Hospital I30.9(ICD-10) Repository 03/15/2018 Unknown R07.9 - Chest pain, Miky Gibson Active [place] unspecified / Community R07.9(ICD-10) Hospital Repository 02/04/2018 Unknown R50.9 - Fever, TameraYoan womack Active [place] unspecified / Community R50.9(ICD-10) Hospital Repository 02/04/2018 Unknown J10.1 - Influenza Yoan Garza Active [place] due to other Community identified influenza Hospital virus with other Repository respiratory manifestations / J10.1(ICD-10) 11/12/2017 Unknown E78.4 - Other Jackie, Active [place] hyperlipidemia / [facility] E78.4(ICD-10) Hospital Repository 11/12/2017 Unknown R73.01 - Impaired Jackie, Active [place] fasting glucose / Renu [facility] R73.01(ICD-10) Hospital Repository PROCEDURES PROCEDURES No Procedure Records FoundRESULTS RESULTS AST(SGOT) Collected: 04/13/2018 Status: F Source: [place] 10:44 AM [facility] REPOSITORY TYPE CODE TESTS RESULT OUT OF RANGE REFERENCE UNITS LAB L501.4100 15-37 U/L High AST 137 Performed By: #### L501.4100, L501.4405 #### [facility] [address] [place], [address] ALANINE AMINOTRANSFERAS Collected: 04/13/2018 Status: F Source: [place] (SGPT) 10:44 AM [facility] REPOSITORY TYPE CODE TESTS RESULT OUT OF RANGE REFERENCE UNITS LAB L501.4405 13-56 U/L High ALT 247 Performed By: #### L501.4100, L501.4405 #### [facility] [address] [place], [address] COPPER, 24 HR UR Collected: 04/06/2018 Status: F Source: [place] 10:43 AM [facility] REPOSITORY TYPE CODE TESTS RESULT OUT OF RANGE REFERENCE UNITS LAB L3700.1100 Not Estab. ug/L Normal COPPER,UR 14 Result Comment: Detection Limit = 1 LAB L3700.1200 0.30-3.00 g/L Normal CREATININE 1.97 Result Comment: Detection Limit = 0.10 LAB L3700.1250 0-49 ug/g creat Normal FOOD AND BEVERAGE ASSISTANT/TRANSIT CLERK RATIO 7 LAB L3700.1300 3-35 ug/24 hr High COPPER, U24 63 Result Comment: Performed at: - [facility] [address] [id number] [employer]ator: Meena Mejia MD, Phone: [phone] Performed By: #### L3700.1000 #### [facility] (refer to report for specific site) refer to report for address and phone number LIVER PROFILE Collected: 04/05/2018 Status: F Source: [place] 10:36 AM [facility] REPOSITORY Order Comment: Comments: ANTI-LIVER/KID MICROSOMAL AB [id number] RED/RF TYPE CODE TESTS RESULT OUT OF RANGE REFERENCE UNITS LAB L501.1500 6.4-8.2 g/dL Normal T PROT 6.5 LAB L501.1800 3.2-5.0 g/dL Normal ALB 3.8 LAB L501.1950 2.2-4.2 g/dL Normal GLOB 2.7 LAB L501.4100 15-37 U/L High AST 54 LAB L501.4305 45-117 U/L Normal ALK P 106 LAB L501.4405 13-56 U/L High ALT 118 LAB L501.4600 0.20-1.00 mg/dL Normal T BILI 0.60 LAB L501.4700 0.00-0.30 mg/dL Normal D BILI 0.15 Performed By: #### L500.3400, L501.5100, L503.6550 #### [facility] [address] [facility] [place], [place], [id number] GGTP Collected: 04/05/2018 Status: F Source: [place] 10:36 [facility] REPOSITORY Order Comment: Comments: ANTI-LIVER/KID MICROSOMAL AB [id number] RED/RF TYPE CODE TESTS RESULT OUT OF RANGE REFERENCE UNITS LAB L501.5100 5-55 U/L Normal GGTP 31 Performed By: #### L500.3400, L501.5100, L503.6550 #### [facility] [address] [facility]. [place], [place], [id number] FERRITIN Collected: 04/05/2018 Status: F Source: [place] 10:36 [facility] REPOSITORY Order Comment: Comments: ANTI-LIVER/KID MICROSOMAL AB [id number] RED/RF TYPE CODE TESTS RESULT OUT OF RANGE REFERENCE UNITS LAB L503.6550 8-252 ng/mL Normal FERRITIN 77 Performed By: #### L500.3400, L501.5100, L503.6550 #### [facility] [address] [facility] [place], [place], [id number] ANTI-SMOOTH MUSCLE ABS Collected: 04/05/2018 Status: F Source: [place] 10:36 AM [facility] REPOSITORY Order Comment: Comments: ANTI-LIVER/KID MICROSOMAL AB [id number] RED/RF TYPE CODE TESTS RESULT OUT OF RANGE REFERENCE UNITS LAB L803.2200 0-19 Units Normal ANTISMOOTH 6643 7 Result Comment: Negative 0 - 19 Weak positive 20 - 30 Moderate to strong positive >30 Actin Antibodies are found in 52-85% of patients with autoimmune hepatitis or chronic active hepatitis and in 22% of patients with primary biliary cirrhosis. Performed By: #### L803.2200, L3000.0700, L3400.0700, L3400.1500, L3400.3800 #### [facility] (refer to report for specific site) refer to report for address and phone number HEPATITIS ABC PROFILE Collected: 04/05/2018 Status: F Source: [place] 10:36 AM [facility] REPOSITORY Order Comment: Comments: ANTI-LIVER/KID MICROSOMAL AB [id number] RED/RF TYPE CODE TESTS RESULT OUT OF RANGE REFERENCE UNITS LAB L3100.0200 Negative Normal HEP A Negative IgM 6734 LAB L3100.0300 Negative Normal HEP A Negative AB,T.6726 LAB L3100.0400 Negative Normal HB Negative SURF AG LAB L3100.0440 Negative Normal HB Negative CORE [id number] LAB L3100.0460 Negative Normal HEP B Negative CORE,TOT LAB L3100.0510 . Normal Hep B Reactive Amna AB Result Comment: Non Reactive: Inconsistent with immunity, less than 10 mIU/mL Reactive: Consistent with immunity, greater than 9.9 mIU/mL LAB L3100.0750 0.0-0.9 s/co ratio Normal HCV Ab <0.1 LAB L3100.0765 . Normal COMMENT Comment Result Comment: Non reactive HCV antibody screen is consistent with no HCV infection, unless recent infection is suspected or other evidence exists to indicate HCV infection. Performed By: #### L803.2200, L3000.0700, L3400.0700, L3400.1500, L3400.3800 #### [facility] (refer to report for specific site) refer to report for address and phone number CERULOPLASMIN Collected: 04/05/2018 Status: F Source: [place] 10:36 AM [facility] REPOSITORY Order Comment: Comments: ANTI-LIVER/KID MICROSOMAL AB [id number] RED/RF TYPE CODE TESTS RESULT OUT OF RANGE REFERENCE UNITS LAB L3400.0700 19.0-39.0 mg/dL Normal CERULOPLAS 1560 19.6 Performed By: #### L803.2200, L3000.0700, L3400.0700, L3400.1500, L3400.3800 #### [facility] (refer to report for specific site) refer to report for address and phone number CMV ACUTE ANTIBODY Collected: 04/05/2018 Status: F Source: [place] IGM 10:36 AM [facility] REPOSITORY Order Comment: Comments: ANTI-LIVER/KID MICROSOMAL AB [id number] RED/RF TYPE CODE TESTS RESULT OUT OF RANGE REFERENCE UNITS LAB L3400.1500 0.0-29.9 AU/mL Normal CMVIgM AB < 30.0 Result Comment: Negative <30.0 Equivocal 30.0 - 34.9 Positive >34.9 A positive result is generally indicative of acute infection, reactivation or persistent IgM production. Performed By: #### L803.2200, L3000.0700, L3400.0700, L3400.1500, L3400.3800 #### [facility] (refer to report for specific site) refer to report for address and phone number TRANSFERRIN Collected: 04/05/2018 Status: F Source: [place] 10:36 AM [facility] REPOSITORY Order Comment: Comments: ANTI-LIVER/KID MICROSOMAL AB [id number] RED/RF TYPE CODE TESTS RESULT OUT OF RANGE REFERENCE UNITS LAB L3400.3800 200-370 mg/dL Normal TRANSFERRN 4937 234 Result Comment: Performed at: [address] [id number] [employer]: Keith Chun PhD, Phone: [phone] Performed By: #### L803.2200, L3000.0700, L3400.0700, L3400.1500, L3400.3800 #### [facility] (refer to report for specific site) refer to report for address and phone number ANTI-MITOCHONDRIAL AB Collected: Status: F Source: [place] 04/05/2018 10:36 AM [facility] REPOSITORY TYPE CODE TESTS RESULT OUT OF RANGE REFERENCE UNITS LAB L800.1280 0.0-20.0 Units Normal MITOCHN AB <20.0 Result Comment: Negative 0.0 - 20.0 Equivocal 20.1 - 24.9 Positive >24.9 Mitochondrial (M2) Antibodies are found in 90-96% of patients with primary biliary cirrhosis. Performed By: #### L800.1280, L3100.5475 #### [facility] (refer to report for specific site) refer to report for address and phone number ANTINUCLEAR ANTIBODIES Collected: 04/05/2018 Status: F Source: [place] DIRECT 10:36 AM [facility] REPOSITORY TYPE CODE TESTS RESULT OUT OF RANGE REFERENCE UNITS LAB L3100.5475 Negative Normal Negative TETE-DIRECT Result Comment: Performed at: - [address] [id number] [employer]: Keith Chun PhD, Phone: [phone] Performed By: #### L800.1280, L3100.5475 #### [facility] (refer to report for specific site) refer to report for address and phone number MISCELLANEOUS LAB Collected: 04/05/2018 Status: F Source: [place] PROCEDURE 10:36 AM [facility] REPOSITORY Order Comment: Comments: ANTI-LIVER/KID MICROSOMAL AB [id number] RED/RF Test(s) Ordered: ANTI-LIVER/KID MICROSOMAL AB [id number] RED/RF TYPE CODE TESTS RESULT OUT OF RANGE REFERENCE UNITS LAB L801.1541 Normal [facility] LAB TEST Result Comment: TEST RESULT UNITS REF INTERVAL Liver-Kidney Microsomal Ab <1.0 Units 0.0 - 20.0 Negative 0.0 - 20.0 Equivocal 20.1 - 24.9 Positive >24.9 LKM type 1 antibodies are detected in patients with autoimmune hepatitis type 2 and in up to 8% of patients with chronic HCV infection. TESTING PERFORMED AT [facility]. ORIGINAL REPORT ON FILE IN LAB CONTAINS ADDITIONAL TEST SITE INFORMATION. Performed By: #### L801.1541 #### [facility] [place], [address] LIVER Observed: 04/05/2018 Status: F Source: [place] 9:02 AM [facility] REPOSITORY [facility] Imaging Services [address] [place] [address] Liver MR#: [id number] Acct: [id number] Name: LIV WAGNER Rep #: [id number] : 1970 F 47 From: Matt Thrasher MD PCP: Renu Mejia DO Status: REG CLI Study: Liver Date of Exam: 04/05/18 Exam# [id number] Ordering Dr: Renu Mejia DO STUDY: ABDOMINAL ULTRASOUND - RIGHT UPPER QUADRANT REASON FOR VISIT: Female, 47 years old. Elevated liver enzymes, cholecystectomy in 2011 TECHNIQUE: Ultrasound evaluation of the right upper quadrant was performed with real-time and static reese-scale imaging. TECHNICAL QUALITY: Adequate. COMPARISON: 04/29/2009 FINDINGS: Liver: The liver measures 14.5 cm. There is normal echogenicity of the liver. The bile ducts are within normal limits. There is hepatic color flow. The direction of portal flow is hepatopetal. There are 2 mildly hyperechoic lesions of the right hepatic lobe measuring 1.3 and 1.6 cm, respectively. Gallbladder: The gallbladder is not visualized. Common Bile Duct (C.B.D.): The common bile duct measures 2.8 mm. Pancreas: There is normal echogenicity of the visualized pancreas. There is no demonstrated pancreatic mass or cyst. Right Kidney: Normal size of the right kidney. The right kidney measures 10.6 cm. Normal renal cortex. The right cortex measures 1.5 cm. There is no demonstrated renal mass or cyst. There is no right hydronephrosis. US/Liver IMPRESSION: 1. Status post cholecystectomy. No biliary dilation. 2. Right hemangiomata, stable. Electronically Signed: Matt Thrasher MD at 10:05 EST , Service support , CC: Renu Mejia DO Salvage Laborer: Signed CARDIOLOGY VISIT Observed: 03/28/2018 Status: F Source: [place] REPORT 5:23 PM [facility] REPOSITORY [facility] [address] [place] [address] OFFICE VISIT Date of Service: 03/28/18 MR#: [id number] Acct: [id number] Name: LIV WAGNER Rep #: [id number] : 1970 Provider: Cody Lomas MD Age/Sex: 47/F Location: [facility] Status: Signed HPI HPI Details: LIV WAGNER, is a 47 F who presents to the office today for Outpatient cardiovascular followup for concerns of acute pericarditis. As you recall she was originally evaluated on 02/22/2018 [facility] and was found to have concerns of post influenza a virus related acute pericarditis. She was evaluated noninvasively including a transthoracic echocardiogram. She has resided in the hospital overnight initiating anti- inflammatory therapy, colchicine therapy, etc. She had symptomatically improved by [...] acute symptoms or adverse events. She has returned to work. She is not scheduled for [...] Blood Pressure 116/76 Intake Visit Reasons: Pericarditis Allergies meperidine [From Demerol] Adverse Reaction (Verified 03/28/18 15:39) Vomiting Medications cholecalciferol (vitamin D3) 1,000 unit capsule 1,000 unit PO DAILY 02/04/18 [History Confirmed 03/28/18] estradiol 4 mcg vaginal insert 0.5 mcg [...] current alcohol intake frequency: holidays/special occasions only ROS Const Const: Negative for fatigue, weakness, weight gain, weight loss, frequent falls or excessive sweating Eyes Eyes: Negative for change in vision, blurry vision or transient loss of vision ENT ENT: Negative for dizziness or balance problems Cardio Chest Pain: Yes Character: dull (when laying down) Location: other (under left breast area, tender to touch) Palpitations: Yes feels like its: other (flip) Edema: None Muscle aches with walking: None Resp Respiratory: Positive for Cough (dry cough precipitated by cp); negative for SOB with activity or SOB at rest GI GI: Negative vomiting or vomiting blood/hematemesis : Negative for hematuria Musc Musc: Negative for balance problems, muscle aches/ myalgia, muscle weakness or joint pain Skin Skin: Negative non-healing lesions or rash Neuro Neuro: Negative for weakness, blurry vision, dizziness, lightheadedness, frequent falls or orthostatic symptoms Rayo Hematologic/Lymphatic: Negative for easy bleeding Endo Endo: Negative for fatigue or excessive sweating Psych Psych: Negative for anxiety or depression Allergy Allergy/Immunology: Negative for hives, Negative for rash Cardiology Exam Const Appearance: cooperative, healthy appearing, comfortable, no acute distress, well developed and well groomed Nutritional Appearance: overweight Orientation: alert, awake and oriented x3 Limitations: altered mental status Head Head: normal to inspection, normocephalic and atraumatic Ears: hearing grossly normal bilaterally Nose: external nose normal Face and Sinus: face symmetric Mouth: oral mucosae normal Teeth and gingiva: fair dentition Eyes Eyelids: eyelids normal Conjunctivae: conjunctivae normal Pupils: PERRL EOM: EOM intact bilaterally Neck Neck: normal visual inspection Carotids: normal carotid upstroke Chest Chest inspection: normal inspection of the chest and symmetric chest movement Auscultation: Bilateral: Clear to Auscultation Cardio Palpation: normal PMI Rate: regular rate Rhythm: regular rhythm Heart sounds: S1 normal and S2 normal GI GI: normal to inspection, bowel sounds present and soft Neuro General: alert, awake and oriented x3 Skin Skin: no rashes or lesions noted Extremities Pulses: Normal: Right Radial Pulse, Left Radial Pulse Lower Extremity Edema: None: Bilateral Psych Psychological: normal affect Assessment AND Plan 1. Precordial pain R07.2 Plan At the present time her chest discomfort appears to be improving and nearly resolved. She will continue her current medical therapy. She is tapering off her corticosteroid therapy. She will eventually taper off her nonsteroidal anti-inflammatory therapy. She will continue her colchicine therapy for a period of approximately 3 months. 2. 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 She will continue her medical management as described above. She will be followed for any other relapses or concerns. 3. Influenza A J10.1 Plan She did have influenza a parent her acute pericarditis occurred following that event. This is thought it was related to her previous bilateral related illness. She does appear to be symptomatically improved. She will continue her medication adjustments as described above. She will continue with outpatient followup. Plan Detail Other Orders Orders: [...] I30.0 Pericarditis type: idiopathic Influenza A J10.1 03/28/18 1723 <Electronically signed by Cody Lomas MD> Date Cody Lomas MD Cosigner Signature: Date (if applicable) CC: Renu Mejia DO 12 LEAD EKG PERFORMED Observed: 03/28/2018 Status: F Source: [place] [facility] 3:39 PM [facility] REPOSITORY [facility] [address] [place] [address] 12 Lead EKG performed by [facility] 03/28/18 1538 MR#: [id number] Acct: [id number] Name: LIV WAGNER Rep #: [id number] : 1970 47 From: Cody Lomas MD Attending Dr: Cody Lomas MD Status: DEP AMB Ordering Dr: Cody Lomas MD Date: 03/28/18 Location: [facility] Sex: F C Admitted: BMS/12 Lead EKG performed by [facility] ECG Report Interpretation Sinus Rhythm Subtle nonspecific ST/T wave abnormalityElectronically signed on 03/28/2018 at 17:58 by Cody Lomas Software Version [id number] 03/28/18 1800 Date Cody Lomas MD CC: Renu Mejia Date Dictated: 03/28/181537 Date Transcribed: 03/28/181537 Salvage Laborer: PM Signed CBC W/DIFF, AUTOMATED Collected: 03/28/2018 Status: F Source: [place] 3:08 PM [facility] REPOSITORY TYPE CODE TESTS RESULT OUT OF RANGE REFERENCE UNITS LAB L100.1000 4.4-11.0 K/mm3 Normal WBC 8.4 LAB L100.1200 4.2-5.4 M/mm3 Normal RBC 4.38 LAB L100.1300 12.0-15.0 g/dl Normal HGB 13.1 LAB L100.1400 37-47 % Normal HCT 39.5 LAB L100.1500 81-99 fL Normal MCV 90.2 LAB L100.1600 27.0-32.0 pg Normal MCH 29.9 LAB L100.1700 32-36 g/gl Normal MCHC 33.2 LAB L100.1810 11.6-14.6 % Normal RDW CV 13.6 LAB L100.1820 35.1-43.9 fl High RDW SD 44.0 LAB L100.1900 150-450 K/mm3 Normal PLT 248 LAB L100.2000 6.2-12.0 fl High MPV 12.1 LAB L100.2100 47-70 % Low NEUT% 44.1 LAB L100.2200 19-41 % High LY% 41.9 LAB L100.2300 0-10 % High MONO% 10.3 LAB L100.2400 0-5 % Normal EO% 2.4 LAB L100.2500 0-1 % Normal BASO% 0.8 LAB L100.2550 0.0-0.9 % Normal IM GRAN % 0.500 Result Comment: IG% - Immature Granulocytes (promyelocytes, myelocytes and metamyelocytes) > 1% indicates that a LEFT SHIFT is Present. LAB L100.2620 2.0-7.7 X10 3/uL Normal Absolute Neut 3.7 LAB L100.2720 0.83-4.51 X10 3/ul Normal Absolute Lymph 3.51 Performed By: #### L100.0100 #### [facility] [address] [place], [address] LIVER PROFILE Collected: 03/28/2018 Status: F Source: [place] 3:08 PM [facility] REPOSITORY TYPE CODE TESTS RESULT OUT OF RANGE REFERENCE UNITS LAB L501.1500 6.4-8.2 g/dL Low T PROT 6.3 LAB L501.1800 3.2-5.0 g/dL Normal ALB 3.5 LAB L501.1950 2.2-4.2 g/dL Normal GLOB 2.8 LAB L501.4100 15-37 U/L High AST 53 LAB L501.4305 45-117 U/L Normal ALK P 109 LAB L501.4405 13-56 U/L High ALT 98 LAB L501.4600 0.20-1.00 mg/dL Normal T BILI 0.40 LAB L501.4700 0.00-0.30 mg/dL Normal D BILI 0.12 Performed By: #### L500.3400 #### [facility] [address] [place], [address] 12 LEAD ELECTROCARDIOGRAM Observed: 03/15/2018 Status: F Source: [place] 9:11 AM [facility] REPOSITORY [facility] Cardiovascular Services [address] [place] [id number] Lead EKG 03/04/18 1033 MR#: [id number] Acct: [id number] Name: LIV WAGNER Rep #: [id number] : 1970 47 From: Edi Alfred MD Attending Dr: Status: DEP ER Ordering Dr: Miky Gibson MD Date: 03/04/18 Location: ED Sex: F C Admitted: Test Reason : CHEST PAIN Blood Pressure : / mmHG Vent. Rate : 083 BPM Atrial Rate : 083 BPM P-R Int : 128 ms QRS Dur : 086 ms QT Int : 364 ms P-R-T Axes : 077 084 069 degrees QTc Int : 427 ms Normal sinus rhythm Nonspecific ST abnormality Abnormal ECG Confirmed by EDI ALFRED MD ([id number]), graphic editor OZZIE HESS ([id number]) on 03/06/2018 11:14:41 AM Referred By: Miky Gibson Confirmed By:EDI ALFRED MD 03/06/18 1114 Date Edi Alfred MD CC: Renu Mejia DO; Miky Gibson MD Signed ECHOCARDIOGRAM, LIMITED Observed: 03/05/2018 Status: F Source: [facility] 3:36 PM [facility] REPOSITORY [facility] Cardiovascular Services [address] [place] [address] [place] [address] Echo, Limited Study 03/05/18 1100 MR#: [id number] Acct: [id number] Name: LIV WAGNER Rep #: [id number] : 1970 47 From: Edi Alfred MD Attending Dr: Renu Mejia DO Status: REG CLI Ordering Dr: Renu Mejia DO Date: 03/05/18 Location: [facility] Sex: F C Admitted: Reason For Study: Acute pericarditis Procedure This was [...] Dictated: 03/05/18 1100 Date Transcribed: 03/05/18 1535 Salvage Laborer: Signed EMERGENCY DEPARTMENT Observed: 03/04/2018 Status: F Source: [place] SUMMARY 2:22 PM [facility] REPOSITORY [facility] Medical Records Department [address] [place] [address] Emergency Department Summary 03/04/18 1107 MR#: [id number] Acct: [id number] Name: LIV WAGNER Rep #: [id number] : 1970 47 From: Miky Gibson MD PCP: Renu Mejia DO Status: DEP ER - ER Visit Summary Date of Service: 03/04/18 Chief Complaint: Chest pain History of Present Illness: The patient is a 47 F presents to the emergency department with worsening chest pain. Patient was actually seen and evaluated about a week ago. At that time, she was admitted for likely pericarditis. The patient underwent echocardiogram which was [...] of breath. The pain does not radiate into her neck or her arm. She denies any history of coronary vascular disease. Physical Examination: Vital signs reviewed General: Well-nourished, well-developed Head: Normocephalic, atraumatic Eyes: Pupils equal and reactive, extraocular muscles intact Neck, supple, no lymphadenopathy Heart: Regular rate and rhythm Respiratory: No distress, clear bilaterally Abdomen: Soft, nontender, nondistended, no peritoneal signs Back: Nontender Extremities: Nontender, no edema, no cords Skin: Normal color no rash Neuro: Alert and oriented, no focal or lateralizing deficits Test Results: [] Emergency Department Course and Treatment: The patient presents with worsening left-sided chest pain. She states that she is actually doing very well for the past week. The pain actually worsened over the past 24 hours. EKG was obtained which did show some inferior [...] do not feel that her symptoms are consistent with acute coronary syndrome. I did obtain a CTA given her positional pain and dyspnea. This shows no pulmonary embolus. There is no dissection. There is no large pericardial effusion. On reevaluation after 2 mg of morphine, the patient is markedly improved. She declined Toradol. She was given Solu-Medrol. Patient be placed on a short burst of prednisone and analgesics. At this time, I do feel that she is safe for outpatient follow-up. Treatment Plan: [] Disposition: Discharge Impression: Chest pain with history of pericarditis This note was generated with [employer] dictation software. It may contain incorrect words, spelling, and punctuation that were not noted in review of the chart prior to signing ED Disposition - Plan for ED Patient: Chief Complaint: Chest Pain Instructions: ED Chest Pain Pericarditis Prescriptions: Hydrocodone Bitart/Apap 5-325 [[place] 5MG-325MG] 1 tab PO Q6H PRN PRN 3 Days #10 tab PRN Reason: Pain Prednisone 10 mg PO UD #33 tab Referrals: Renu Mejia, DO [Primary Care Provider] - What to do if you have Problems For any increased pain, shortness of breath, bleeding, nausea or vomiting, chest pain, or any unexpected problems, contact your Primary Care Provider. Call [facility] ([phone]) or report to the closest Emergency Room. Call 911 if necessary. 03/04/18 1422 <Electronically signed by Miky Gibson MD> Date Miky Gibson MD Cosigner Signature (If Indicated): Date CC: Renu Mejia DO MISCELLANEOUS LAB Collected: 03/04/2018 Status: F Source: [facility] PROCEDURE 1:47 PM [facility] REPOSITORY Order Comment: Comments: SLE [id number] SERUM/RT Test(s) Ordered: SLE [id number] SERUM/RT TYPE CODE TESTS RESULT OUT OF RANGE REFERENCE UNITS LAB L801.1541 Normal [facility] LAB TEST Result Comment: TEST RESULT UNITS REF INTERVAL Systemic Lupus Profile A CLOSER ON Antibodies 0.3 AI 0.0 - 0.9 Downs Antibodies <0.2 AI 0.0 - 0.9 RA Latex Turbid. <10.0 IU/mL 0.0 - 13.9 Antichromatin Antibodies <0.2 AI 0.0 - 0.9 Sjogren's Anti-SS-A <0.2 AI 0.0 - 0.9 Sjogren's Anti-SS-B <0.2 AI 0.0 - 0.9 Anti-DNA (DS) Ab Qn 1 IU/mL 0 - 9 Negative <5 Equivocal 5 - 9 Positive >9 TESTING PERFORMED AT [facility]. ORIGINAL REPORT ON FILE IN LAB CONTAINS ADDITIONAL TEST SITE INFORMATION. Performed By: #### L801.1541 #### [facility] [place], [address] CBC W/DIFF, AUTOMATED Collected: 03/04/2018 Status: F Source: [facility] 1:42 PM [facility] REPOSITORY TYPE CODE TESTS RESULT OUT OF RANGE REFERENCE UNITS LAB L100.1000 4.4-11.0 K/mm3 Normal WBC 4.8 LAB L100.1200 4.2-5.4 M/mm3 Normal RBC 4.53 LAB L100.1300 12.0-15.0 g/dl Normal HGB 13.5 LAB L100.1400 37-47 % Normal HCT 40.4 LAB L100.1500 81-99 fL Normal MCV 89.2 LAB L100.1600 27.0-32.0 pg Normal MCH 29.8 LAB L100.1700 32-36 g/gl Normal MCHC 33.4 LAB L100.1810 11.6-14.6 % Normal RDW CV 12.4 LAB L100.1820 35.1-43.9 fl Normal RDW SD 39.9 LAB L100.1900 150-450 K/mm3 Normal PLT 269 LAB L100.2000 6.2-12.0 fl High MPV 12.6 LAB L100.2100 47-70 % Low NEUT% 46.0 LAB L100.2200 19-41 % Normal LY% 40.3 LAB L100.2300 0-10 % Normal MONO% 7.4 LAB L100.2400 0-5 % Normal EO% 4.0 LAB L100.2500 0-1 % High BASO% 2.1 LAB L100.2550 0.0-0.9 % Normal IM GRAN % 0.200 Result Comment: IG% - Immature Granulocytes (promyelocytes, myelocytes and metamyelocytes) > 1% indicates that a LEFT SHIFT is Present. LAB L100.2620 2.0-7.7 X10 3/uL Normal Absolute Neut 2.2 LAB L100.2720 0.83-4.51 X10 3/ul Normal Absolute Lymph 1.92 Performed By: #### L100.0100, L101.9900 #### [facility] [address] [place], [address] ERYTHROCYTE SED RATE Collected: 03/04/2018 Status: F Source: [place] 1:42 PM [facility] REPOSITORY TYPE CODE TESTS RESULT OUT OF RANGE REFERENCE UNITS LAB L102.0000 0-20 mm/hr Normal SED RATE 7 Performed By: #### L100.0100, L101.9900 #### [facility] [address] [place], [address] COMPREHENSIVE METABOLIC Collected: 03/04/2018 Status: F [facility] 1:42 PM [facility] REPOSITORY Order Comment: Comments: SLE [id number] SERUM/RT TYPE CODE TESTS RESULT OUT OF RANGE REFERENCE UNITS LAB L501.0100 74-106 mg/dL High GLU 118 Result Comment: Fasting Glucose result from 100 to 125 mg/dL suggests IMPAIRED HOMEOSTASIS per A.D.A. criteria. Please note revised GLUCOSE reference range effective 2017. LAB L501.1000 7-18 mg/dL Normal BUN 12 LAB L501.1100 0.55-1.02 mg/dL Normal CREAT,SERUM 0.86 Result Comment: The validity of the calculated GFR AND GFRAA in patients over 70 years has not been determined. Clinical correlation is essential. LAB L501.1110 >60 mL/min Normal EST GFR 75 Result Comment: Non- GFR Calc LAB L501.1115 >60 mL/min Normal EST GFR - AA 91 Result Comment: GFR Calc LAB L501.1255 ml/min Normal Estimated CRCL 64.65 LAB L501.1300 10-20 RATIO Normal BUN/CRE 13.9 LAB L501.1500 6.4-8. g/dL Normal 2 T PROT 7.0 LAB L501.1800 3.2-5. g/dL Normal 0 ALB 3.8 LAB L501.1950 2.2-4. g/dL Normal 2 GLOB 3.2 LAB L501.2000 0.9-2. RATIO Normal 4 A/G 1.2 LAB L501.2200 8.5-10 mg/dL Normal .1 CA 8.7 LAB L501.4100 15-37 U/L High AST 51 LAB L501.4305 45-117 U/L Normal ALK P 106 LAB L501.4405 13-56 U/L High ALT 60 LAB L501.4600 0.20-1 mg/dL Normal .00 T BILI 0.40 LAB L501.5300 136-14 mmol/L Normal 5 NA 140 LAB L501.5600 3.5-5. mmol/L Normal 1 K 3.7 LAB L501.5900 98-107 mmol/L Normal CL 106 LAB L501.6100 21.0-3 mmol/L Normal 2.0 CO2 24.0 LAB L501.6200 5-15 Normal GAP 10 Performed By: #### L500.4050, L501.6710 #### [facility] [address] [facility] [place], [address] CRP Collected: 03/04/2018 Status: F Source: [place] 1:42 PM [facility] REPOSITORY Order Comment: Comments: SLE [id number] SERUM/RT TYPE CODE TESTS RESULT OUT OF RANGE REFERENCE UNITS LAB L501.6710 0.0-3.0 mg/L Normal < 2.90 C-REACTIVE PROT Result Comment: C-Reactive Protein (CRP) provides useful information for the diagnosis, therapy and monitoring of inflammatory processes and associated diseases. For the evaluation of Relative Risk for Cardiovascular Disease, a High Sensitivity CRP (HSCRP) should be ordered. Performed By: #### L500.4050, L501.6710 #### [facility] [address] [facility]. [place], [place], [id number] ANTINUCLEAR ANTIBODIES Collected: 03/04/2018 Status: F Source: [place] DIRECT 1:42 PM [facility] REPOSITORY TYPE CODE TESTS RESULT OUT OF RANGE REFERENCE UNITS LAB L3100.5475 Negative Normal Negative TETE-DIRECT Result Comment: Performed at: - [facility] [address] [id number] [employer]: Keith Chun PhD, Phone: [phone] Performed By: #### L3100.5475 #### [facility] (refer to report for specific site) refer to report for address and phone number CBC W/DIFF, AUTOMATED Collected: 03/04/2018 Status: F Source: [place] 10:58 AM [facility] REPOSITORY TYPE CODE TESTS RESULT OUT OF RANGE REFERENCE UNITS LAB L100.1000 4.4-11.0 K/mm3 Low WBC 4.3 LAB L100.1200 4.2-5.4 M/mm3 Normal RBC 4.63 LAB L100.1300 12.0-15.0 g/dl Normal HGB 13.7 LAB L100.1400 37-47 % Normal HCT 41.1 LAB L100.1500 81-99 fL Normal MCV 88.8 LAB L100.1600 27.0-32.0 pg Normal MCH 29.6 LAB L100.1700 32-36 g/gl Normal MCHC 33.3 LAB L100.1810 11.6-14.6 % Normal RDW CV 12.4 LAB L100.1820 35.1-43.9 fl Normal RDW SD 39.8 LAB L100.1900 150-450 K/mm3 Normal PLT 251 LAB L100.2000 6.2-12.0 fl Normal MPV 11.5 LAB L100.2100 47-70 % Low NEUT% 40.5 LAB L100.2200 19-41 % High LY% 44.5 LAB L100.2300 0-10 % Normal MONO% 9.2 LAB L100.2400 0-5 % Normal EO% 4.2 LAB L100.2500 0-1 % High BASO% 1.6 LAB L100.2550 0.0-0.9 % Normal IM GRAN % 0.000 Result Comment: IG% - Immature Granulocytes (promyelocytes, myelocytes and metamyelocytes) > 1% indicates that a LEFT SHIFT is Present. LAB L100.2620 2.0-7.7 X10 3/uL Low Absolute Neut 1.7 LAB L100.2720 0.83-4.51 X10 3/ul Normal Absolute Lymph 1.89 Performed By: #### L100.0100 #### [facility] [address] [place], [place], [id number] PROTHROMBIN TIME W/INR Collected: 03/04/2018 Status: F Source: [place] 10:58 AM [facility] REPOSITORY TYPE CODE TESTS RESULT OUT OF RANGE REFERENCE UNITS LAB L300.4150 11.7-14.9 SECONDS Normal PROTIME 13.1 LAB L300.4200 Normal INR 1.0 Performed By: #### L300.3900, L300.4310 #### [facility] [address] [place], [place], [address] PARTIAL THROMBOPLAST Collected: 03/04/2018 Status: F Source: [place] TIME 10:58 AM [facility] REPOSITORY TYPE CODE TESTS RESULT OUT OF RANGE REFERENCE UNITS LAB L300.4310 24.1-36.2 Seconds Normal PTT 28.6 Performed By: #### L300.3900, L300.4310 #### [facility] [address] [place], [address] BASIC METABOLIC Collected: 03/04/2018 Status: F Source: [facility] PROFILE (BMP) 10:58 AM [facility] REPOSITORY TYPE CODE TESTS RESULT OUT OF RANGE REFERENCE UNITS LAB L501.0100 74-106 mg/dL Normal GLU 95 Result Comment: Please note revised GLUCOSE reference range effective 2017. LAB L501.1000 7-18 mg/dL Normal BUN 12 LAB L501.1100 0.55-1.02 mg/dL Normal CREAT,SERUM 0.90 Result Comment: The validity of the calculated GFR AND GFRAA in patients over 70 years has not been determined. Clinical correlation is essential. LAB L501.1110 >60 mL/min Normal EST GFR 71 Result Comment: Non- GFR Calc LAB L501.1115 >60 mL/min Normal EST GFR - AA 86 Result Comment: GFR Calc LAB L501.1255 ml/min Normal Estimated CRCL 61.77 LAB L501.1300 10-20 RATIO Normal BUN/CRE 13.3 LAB L501.2200 8.5-10 mg/dL Normal .1 CA 8.9 LAB L501.5300 136-14 mmol/L Normal 5 NA 143 LAB L501.5600 3.5-5. mmol/L Normal 1 K 3.7 LAB L501.5900 98-107 mmol/L Normal CL 106 LAB L501.6100 21.0-3 mmol/L Normal 2.0 CO2 24.0 LAB L501.6200 5-15 Normal GAP 13 Performed By: #### L500.2500, L501.4010 #### [facility] [address] [place], [address] TROPONIN-I Collected: 03/04/2018 Status: F Source: [place] 10:58 AM [facility] REPOSITORY TYPE CODE TESTS RESULT OUT OF RANGE REFERENCE UNITS LAB L501.4010 <0.045 ng/mL Normal < 0.015 TROPONIN-I Result Comment: TROPONIN-I EXPECTED VALUES <0.045 Negative 0.045 - 0.590 Consistent with Cardiac Damage > OR = 0.600 Critical Value Not every elevated troponin is indicative of NC. These values should be used with clinical judgement in examining the patient's clinical picture for diagnosis. To establish a diagnosis of NC versus myocardial injury, there must be a demonstrated rise and/or fall in the troponin values, in addition to ischemic symptoms, EKG changes, new regional wall motion abnormality, and/or angiographical evidence. PLEASE NOTE: REFERENCE RANGES EDITED 17 Performed By: #### L500.2500, L501.4010 #### [facility] [address] [place], [address] CTA CHEST W/WO Observed: 03/04/2018 Status: F Source: [place] CONTRAST 10:38 AM [facility] REPOSITORY [facility] Imaging Services [address] [place] [address] CTA Chest W/WO Contrast MR#: [id number] Acct: [id number] Name: LIV WAGNER Sherie Rep #: [id number] : 1970 F 47 From: Leroy Aj MD PCP: Renu Mejia DO Status: REG ER Study: CTA Chest W/WO Contrast Date of Exam: 03/04/18 Exam# [id number] Ordering Dr: Miky Gibson MD STUDY: CTA CHEST REASON FOR EXAM: Female, 47 years old. Chest pain. Pericarditis. Left-sided chest pain. RADIATION DOSAGE (If Supplied By Facility): CTDIvol = ( 9.87 ) mGy, DLP = ( 334.46 ) mGycm TECHNIQUE: The examination was performed with the intravenous administration of 75 ml of Isovue 370 contrast material. Post-processing of the angiographic images was performed, with multiplanar reformation and 3D reconstruction. Individualized dose optimization techniques were used for this CT. COMPARISON: None. FINDINGS: Normal enhancement of the main pulmonary artery and right and left pulmonary arteries. Normal enhancement of the bilateral peripheral pulmonary arteries. There is no demonstrated pulmonary embolism. Normal thoracic aorta and visualized great vessels. There is no demonstrated aortic dissection. Normal [...] pulmonary embolism or arterial dissection. Electronically Signed: Leroy Aj MD at 12:32 EST Tel [phone], Service support , CC: Renu Mejia DO; Miky Gibson MD Salvage Laborer: Signed CHEST 1 VIEW Observed: 03/04/2018 Status: F Source: [place] (PORTABLE) 10:38 AM [facility] REPOSITORY [facility] Imaging Services [address] [place] [address] Chest 1 View (Portable) MR#: [id number] Acct: [id number] Name: LIV WAGNER Rep #: [id number] : 1970 F 47 From: Gauri Brooke MD PCP: Renu Mejia DO Status: DEP ER Study: Chest 1 View (Portable) Date of Exam: 03/04/18 Exam# [id number] Ordering Dr: Miky Gibson MD STUDY: X-RAY CHEST REASON FOR EXAM: Female, 47 years old. Chest pain, diagnosed with pericarditis recently, improved but worse today. Shortness of breath and pain TECHNIQUE: Single AP portable view of the chest. COMPARISON: 02/22/2018. CTA chest 03/04/2018. FINDINGS: The [...] the upper abdomen. RAD/Chest 1 View (Portable) IMPRESSION: No acute cardiopulmonary disease. No significant interval change. Electronically Signed: Gauri Brooke MD at 3:31 EST , Service support , CC: Renu Mejia DO; Miky Gibson MD Salvage Laborer: Signed 12 LEAD ELECTROCARDIOGRAM Observed: 02/27/2018 Status: F Source: [place] 11:35 AM [facility] REPOSITORY [facility] Cardiovascular Services [address] [place] [address] 12 Lead EKG 02/22/18 1321 MR#: [id number] Acct: [id number] Name: LIV WAGNER Rep #: [id number] : 1970 47 From: Edi Alfred MD Attending Dr: Amy Trejo MD Status: DIS IN Ordering Dr: Amy Trejo MD Date: 02/22/18 Location: [facility] Sex: F C Admitted: 02/22/18 Test Reason : CP Blood Pressure : / mmHG Vent. Rate : 065 BPM Atrial Rate : 065 BPM P-R Int : 114 ms QRS Dur : 092 ms QT Int : 424 ms P-R-T Axes : 062 070 045 degrees QTc Int : 440 ms Normal sinus rhythm Nonspecific ST abnormality Abnormal ECG When compared with ECG of 11-JAN-2009 10:47, No significant change was found Confirmed by EDI ALFRED MD ([id number]), graphic editor OZZIE HESS ([id number]) on 02/27/2018 11:35:22 AM Referred By: ARNOL Confirmed By:EDI ALFRED MD 02/27/18 1135 Date Edi Alfred MD CC: Renu Mejia DO; Amy Trejo MD Signed 12 LEAD ELECTROCARDIOGRAM Observed: 02/27/2018 Status: F Source: [place] 11:34 AM [facility] REPOSITORY [facility] Cardiovascular Services [facility] [place] [address] 12 Lead EKG 02/23/18 0530 MR#: [id number] Acct: [id number] Name: LVI WAGNER Rep #: [id number] : 1970 47 From: Edi Alfred MD Attending Dr: Amy Trejo MD Status: DIS IN Ordering Dr: Cody Lomas MD Date: 02/23/18 Location: [facility] Sex: F C Admitted: 02/22/18 Test Reason : AM EKG Blood Pressure : / mmHG Vent. Rate : 062 BPM Atrial Rate : 062 BPM P-R Int : 124 ms QRS Dur : 088 ms QT Int : 422 ms P-R-T Axes : 063 073 050 degrees QTc Int : 428 ms Normal sinus rhythm Normal ECG When compared with ECG of 22-FEB-2018 13:21, MANUAL COMPARISON REQUIRED, DATA IS UNCONFIRMED Confirmed by EDI ALFRED MD ([id number]), graphic editor OZZIE HESS ([id number]) on 02/27/2018 11:33:52 AM Referred By: BOYD Confirmed By:EDI ALFRED MD 02/27/18 1133 Date Edi Alfred MD CC: Renu Mejia DO; Amy Trejo MD; Cody Lomas MD Signed DISCHARGE SUMMARY Observed: 02/23/2018 Status: F Source: [place] 1:36 PM [facility] REPOSITORY [facility] Medical Records Department [address] [place] [address] Discharge Summary 02/23/18 1113 MR#: [id number] Acct: [id number] Name: LIV WAGNER Rep #: [id number] : 1970 47 From: Amy Trejo MD PCP: Renu Mejia DO Status: DIS IN Y Location: [place] [address] Discharge Date and Diagnosis Date of Admission: 02/22/18 Date of Discharge: 02/23/18 - Primary Discharge Diagnosis Active and Suspected Problems (Last Reviewed 02/04/18 @ 14:00 by Sylvia Yen) Acute pericarditis (Acute) Hospital Course and Treatment Imaging Results: Diagnostic Data Chest X-Ray 02/22/18 08:24 IMPRESSION: Normal x-ray examination of the chest. Electronically Signed: Leroy Aj MD at 9:14 EST Tel [phone], Service support , cardiology Operations: None Procedures: 2-D Echocardiogram Summary of Care Provided: The patient is a 47 year old F with a history of endometriosis s/p hysterectomy. SHe was admitted through the ED on 02/22/18 with a complaint of chest pain, which was rated 6/10, sharp, retrosternal, aggravated by lying down and relieved by sitting up. She had associated pleuritic chest pain, but denied any SOB, fever, chills, palpitations, abdominal pain, diarrhea or vomiting. Review of systems was otherwise negative. She contracted the flu 3 weeks ago which has since resolved. She currently doesnt have any URTI symptoms.IN the Ed, her vitals were stable. Initial troponin was neative, and CXR showed no acute cardiopulmonary process. EKG showed NSR with possible left atrial enlargement and nonspecifit T wave changes. She had a stat echocardiogram done in Ed which showed no evidence of pericardial fluid. She was admitted to be managed for acute pericarditis. She was started on high-dose ibuprofen and colchicine. Pain subsequently improved and patient felt much better. She was discharged home on 02/23/2018 with a prescription for ibuprofen and colchicine. She is to follow- up with her primary care doctor and cardiology. Patient seen and examined prior to discharge. Chest pain improved significantly and she only had mild pleuritic chest pain with breathing. She denied any fever chills, cough, abdominal pain, diarrhea or vomiting. Review of systems otherwise negative. Labs and vitals reviewed. On examination Vital Signs Height 5 ft 2 in Weight: 154 lb 8.705 oz Weight in Pounds 154.5 lbs Pulse Ox 97 General: Alert, Oriented x3, Cooperative,looks much more comfortable today HEENT: Atraumatic, PERRLA, EOMI, Normocephalic Oral: Moist Mucosa Neck: Supple, No JVD, Negative Carotid Bruits Lungs: Clear to auscultation, Normal air movement, No rhonchi, No wheeze, No rales Cardiovascular: Regular rate, Regular Rhythm, Normal S1, Normal S2, No murmurs Abdomen: Bowel Sounds Present, Soft, Non Tender Extremities: No clubbing, No cyanosis, No edema, Capillary Refill Less than 3 Seconds Skin: No rashes, No breakdown Musculoskeletal: No Tenderness to Palpation of Joints or Extremities Lymphatic: No Cervical, Supraclavicular, or Inguinal Adenopathy Neurological: Cranial nerves II-XII grossly intact Psych/Mental Status: Normal Affect, Appropriate, Alert and oriented to time, place, person, mood and affect Plan as stated above. - Physical Exam Vital Signs Temp Pulse Resp BP Pulse Ox 97.8 F 73 16 100/53 L 97 02/23/18 09:33 02/23/18 09:33 02/23/18 09:33 02/23/18 09:33 02/23/18 09:33 Oxygen Delivery Method Room Air Weight: 154 lb 8.705 oz Body Mass Index (BMI) 28.3 Intake and Output for Last 24 Hours Intake Total 240 / 240 560 / 560 Balance 240 / 240 560 / 560 Laboratory Tests Past 24 Hrs WBC 5.0 RBC 4.38 Hgb 12.9 Hct 39.4 MCV 90.0 MCH 29.5 MCHC 32.7 WBC RBC Hgb Hct MCV MCH MCHC RDW RDW Differential Plt Count MPV Immature Gran % (Auto) Neut % (Auto) Lymph % (Auto) Discharge Diet: No Restrictions Discharge Activity: Return to Normal Activity Weight Bearing Status: Weight bearing as tolerated Call your doctor if you observe: Fever of 101 or Higher, Shortness of breath, Chest pain, Uncontrolled pain Home Medications: Medications to take at Discharge cholecalciferol (vitamin D3) 1,000 unit capsule 1,000 unit PO DAILY 02/04/18 estradiol 4 mcg vaginal insert 0.5 mcg TRANSDERM. QWEEK 02/04/18 Colchicine 0.6 mg PO BID #60 tab 02/23/18 Famotidine [Pepcid] 20 mg PO BID #60 tablet 02/23/18 Ibuprofen 600 mg PO TID #90 tablet 02/23/18 Following Prescrptions Were Given to Patient: Colchicine 0.6 mg PO BID #60 tab Famotidine [Pepcid] 20 mg PO BID #60 tablet Ibuprofen 600 mg PO TID #90 tablet Primary Care Physician: Renu Mejia DO [Primary Care Provider] - Please follow up with your Primary Care Physician in: one week Please Follow Up With: Cody Lomas MD When: 1-2 weeks Patient Instructions: Pericarditis Disposition: Home Minutes spent on discharge:: 38 Patient Condition:: Good Medical Necessity - Tobacco Use Smoking Status: Never smoker Meaningful Use Info Meaningful Use Diagnoses (Choose all that apply): None applicable Code Visit Inpatient E AND M: [id number] Disch Hosp 02/23/18 1336 <Electronically signed by Amy Trejo MD> Date Amy Trejo MD Cosigner Signature (if applicable): Date CC: Renu Mejia DO; Amy Trejo MD Signed DISCHARGE INSTRUCTION Observed: 02/23/2018 Status: F Source: [place] 11:11 AM [facility] REPOSITORY [facility] Medical Records Department [address] [place] [address] Instructions for Home/Discharge Instructions 02/23/18 1110 MR#: [id number] Acct: [id number] Name: LIV WAGNER Rep #: [id number] : 1970 47 From: Amy Trejo MD PCP: Renu Mejia DO Status: ADM IN - Discharge Diagnoses Current Active Problems: Current Active and Chronic Problems (Last Reviewed 02/04/18 @ 14:00 by Sylvia Yen) Acute pericarditis (Acute) You will use the following diet at home:: Regular Your food should be the consistency of: Regular Your liquids should be the consistency of: Regular/Thin Discharge Activity: Return to Normal Activity Weight Bearing Status: Weight bearing as tolerated Call your doctor if you observe: Fever of 101 or Higher, Shortness of breath, Chest pain, Uncontrolled pain Instructions: Pericarditis Allergies/Adverse Reactions: Allergies meperidine [From Demerol] Adverse Reaction (Verified 02/22/18 13:20) Vomiting Medications to take at Discharge cholecalciferol (vitamin D3) 1,000 unit capsule 1,000 unit PO DAILY 02/04/18 estradiol 4 mcg vaginal insert 0.5 mcg TRANSDERM. QWEEK 02/04/18 Colchicine 0.6 mg PO BID #60 tablet 02/23/18 Famotidine [Pepcid] 20 mg PO BID #60 tablet 02/23/18 Ibuprofen 600 mg PO TID #90 tablet 02/23/18 The following prescriptions were given: Colchicine 0.6 mg PO BID #60 tablet Famotidine [Pepcid] 20 mg PO BID #60 tablet Ibuprofen 600 mg PO TID #90 tablet Primary Care Physician: Renu Mejia DO [Primary Care Provider] - Please follow up with your Primary Care Physician in: one week Test Results: Test results from this visit will be discussed in further detail at your follow-up appointment, if applicable. Please Follow Up With: Cody Lomas MD When: 1-2 weeks Proposed Discharge Date: 02/23/18 02/23/18 1111 <Electronically signed by Amy Trejo MD> Date Amy Trejo MD CC: Renu Jackie DO CBC W/DIFF, AUTOMATED Collected: 02/23/2018 Status: F Source: [place] 6:12 AM [facility] REPOSITORY TYPE CODE TESTS RESULT OUT OF RANGE REFERENCE UNITS LAB L100.1000 4.4-11.0 K/mm3 Normal WBC 5.0 LAB L100.1200 4.2-5.4 M/mm3 Normal RBC 4.38 LAB L100.1300 12.0-15.0 g/dl Normal HGB 12.9 LAB L100.1400 37-47 % Normal HCT 39.4 LAB L100.1500 81-99 fL Normal MCV 90.0 LAB L100.1600 27.0-32.0 pg Normal MCH 29.5 LAB L100.1700 32-36 g/gl Normal MCHC 32.7 LAB L100.1810 11.6-14.6 % Normal RDW CV 12.7 LAB L100.1820 35.1-43.9 fl Normal RDW SD 41.4 LAB L100.1900 150-450 K/mm3 Normal PLT 260 LAB L100.2000 6.2-12.0 fl Normal MPV 11.4 LAB L100.2100 47-70 % Low NEUT% 40.7 LAB L100.2200 19-41 % High LY% 41.8 LAB L100.2300 0-10 % High MONO% 12.5 LAB L100.2400 0-5 % Normal EO% 3.4 LAB L100.2500 0-1 % High BASO% 1.4 LAB L100.2550 0.0-0.9 % Normal IM GRAN % 0.200 Result Comment: IG% - Immature Granulocytes (promyelocytes, myelocytes and metamyelocytes) > 1% indicates that a LEFT SHIFT is Present. LAB L100.2620 2.0-7.7 X10 3/uL Normal Absolute Neut 2.0 LAB L100.2720 0.83-4.51 X10 3/ul Normal Absolute Lymph 2.07 Performed By: #### L100.0100 #### [facility] [address] [place], [address] BASIC METABOLIC Collected: 02/23/2018 Status: F Source: [place] PROFILE (BMP) 6:12 AM [facility] REPOSITORY TYPE CODE TESTS RESULT OUT OF RANGE REFERENCE UNITS LAB L501.0100 74-106 mg/dL Normal GLU 91 Result Comment: Please note revised GLUCOSE reference range effective 2017. LAB L501.1000 7-18 mg/dL Normal BUN 11 LAB L501.1100 0.55-1.02 mg/dL Normal CREAT,SERUM 0.70 Result Comment: The validity of the calculated GFR AND GFRAA in patients over 70 years has not been determined. Clinical correlation is essential. LAB L501.1110 >60 mL/min Normal EST GFR 96 Result Comment: Non- GFR Calc LAB L501.1115 >60 mL/min Normal EST GFR - AA 116 Result Comment: GFR Calc LAB L501.1255 ml/min Normal Estimated CRCL 79.42 LAB L501.1300 10-20 RATIO Normal BUN/CRE 15.8 LAB L501.2200 8.5-10 mg/dL Low .1 CA 8.2 LAB L501.5300 136-14 mmol/L Normal 5 NA 141 LAB L501.5600 3.5-5. mmol/L Normal 1 K 3.9 LAB L501.5900 98-107 mmol/L High CL 108 LAB L501.6100 21.0-3 mmol/L Normal 2.0 CO2 26.0 LAB L501.6200 5-15 Normal GAP 7 Performed By: #### L500.2500 #### [facility] [address] [facility] [place], [address] CONSULTATION Observed: 02/22/2018 Status: F Source: [place] 9:10 PM [facility] REPOSITORY [facility] Medical Records Department [address] [place] [id number] Consultation 02/22/182058 MR#: [id number] Acct: [id number] Name: LIV WAGNER Rep #: [id number] : 1970 47 From: Cody Lomas MD PCP: Renu Mejia DO Status: ADM IN Y Location: [place] [address]-1 Problem List (1) Acute pericarditis Status: Acute (2) Influenza A Status: Resolved Reason for Consult Date of Consultation: 02/22/18 History of Present Illness: The patient is a 47 year oldoqo-jbqy-neu white female with no past cardiovascular history who was recently diagnosed with influenza A virus, which she states she has recovered from other than a residual cough, who now presents with the onset of chest discomfort. She states that she recently noted the onset of chest discomfort. It waxed and waned. However it progressed to the point, despite her one-time use of nonsteroidal anti-inflammatory therapy with ibuprofen, where she could not lie down comfortably and had to sit up and lean forward to gain symptomatic improvement. She also noted it was worse with cough and/or deep inspiration. She did not necessarily have associated fever, chills, nausea, emesis, or diaphoresis. There was no report of orthopnea, PND, peripheral pitting edema, near syncope or syncope. She presented to the [facility] ED for evaluation. Her evaluation included cardiac enzymes which were negative. An ECG demonstrated sinus rhythm with subtle nonspecific ST segment abnormality. A chest x-ray demonstrated no acute cardiopulmonary disease process. An ESR level was reported as negative. She had a transthoracic echocardiogram performed in the [facility] emergency department. Her left ventricle was thought to be normal with an LVEF of 65% with trivial TR. A pericardial effusion was not appreciated. She was subsequently given the diagnosis of acute pericarditis. She was treated with IV Toradol 30 mg x1. She was subsequently given additional nonsteroidal anti-inflammatory therapy, PPI therapy, and initiated on colchicine therapy. At the present time she states she is somewhat symptomatically improved. She feels that she can rest somewhat more comfortably but still not be totally comfortable in a supine position. A follow-up ECG was obtained. She remained in sinus rhythm. Her previous subtle ST segment abnormality appeared to be a less prominent. [] Past Medical History Allergies/Adverse Reactions: Allergies meperidine [From Demerol] Adverse Reaction (Verified 02/22/18 13:20) Vomiting Home Medications: Ambulatory Orders Medication Instructions Recorded cholecalciferol (vitamin D3) 1,000 1,000 unit PO DAILY 02/04/18 unit capsule estradiol 4 mcg vaginal insert 0.5 mcg TRANSDERM. QWEEK 02/04/18 [employer] History: endometriosis - *Family History Maternal Family History: Family History (Last Updated 02/04/18 @ 14:00 by Sylvia Yen) Other Diabetes Hypertension Leukemia History Items: Diabetes, Heart Disease, Hypertension Paternal Family History: Family History (Last Updated 02/04/18 @ 14:00 by Sylvia Yen) Other Diabetes Hypertension Leukemia History Items: Diabetes, Heart Disease, Hypertension Lives: With Family Smoking Status: Never smoker Alcohol: Occasional Drugs: None Review of Systems - Review of Systems General: Denies: Fever, Night Sweats, Fatigue Cardiovascular: Reports: Chest Discomfort, Chest Discomfort at Rest. Denies: Shortness of Breath, Orthopnea, PND, Peripheral Edema, Palpitations, Lightheadedness, Dizziness, Near Syncope, Syncope Respiratory: Reports: Cough, Pleurtic Chest Pain. Denies: Sputum Production, Hemoptysis Gastrointestinal: Denies: Hematemesis, Hematochezia, Melena Genitourinary: Denies: Dysuria, Hematuria Skin: Denies: Rash Subjectve: Is a 47-year-old white female who appeared to be uncomfortable, sitting up, leaning forward, to gain symptomatic improvement. Objective: Vital Signs Temp Pulse Resp BP Pulse Ox 98.1 F 73 16 126/81 H 97 02/22/18 17:38 02/22/18 19:02 02/22/18 17:38 02/22/18 17:38 02/22/18 17:38 Oxygen Delivery Method Room Air Weight: 154 lb 8.705 oz Body Mass Index (BMI) 28.3 Intake and Output for Last 24 Hours Intake Total 240 / 240 Balance 240 / 240 General: Awake, Alert, Oriented x 3, Cooperative, No Acute Distress HEENT: Atraumatic, Normocephalic, Sclera Non Icteric Oral: Moist Mucosa Neck: Supple, Good ROM, No JVD Lungs: Clear to auscultation Cardiovascular: Regular Rhythm, Normal S1, Normal S2 Vascular: No Carotid Bruits Abdomen: Bowel Sounds Present, Soft, Non Tender Extremities: No Cyanosis, No Clubbing, No edema Neurological: No Focal Motor or Sensory Deficit Psych/Mental Status: Appropriate, Normal Affect 02/22/18 08:35: WBC 5.3, RBC 4.88, Hgb 14.7, Hct 43.7, MCV 89.5, MCH 30.1, MCHC 33.6, RDW 12.8, RDW Differential 41.6, Plt Count 308, MPV 11.4, Immature Gran % (Auto) 0.200, Neut % (Auto) 51.1, Lymph % (Auto) 36.5, [place] % (Auto) 9.2, Eos % (Auto) 1.9, Baso % (Auto) 1.1 H, Absolute Neuts (auto) 2.7, Total Counted Not Reportable 02/22/18 08:35: Troponin I < 0.015 02/22/18 13:35: Troponin I < 0.015 02/22/18 15:55: Troponin I < 0.015 Rhythm: Sinus rhythm EKG: As noted above ECHO: As noted above CXR: As noted above Assessment/Plan 1. Acute pericarditis The patient presents with a history compatible with acute pericarditis. Her examination did not demonstrate, at this point in time, a pericardial friction rub. Her ECG demonstrated subtle nonspecific ST segment abnormality. Her echocardiogram demonstrated no obvious pericardial effusion. She is now been treated with IV corticosteroids. She has had some improvement in her symptoms allowing her to rest somewhat more comfortably. She is continuing with oral corticosteroids at this time as well as a PPI agent and colchicine therapy. She will continue to be monitored. Hopefully her oral agents will be effective with respect to providing her symptomatic improvement. If they do and she remains otherwise stable without other obvious acute or adverse events warranting further evaluation and care then hopefully she will be able to be released home, potentially tomorrow, for continued outpatient cardiovascular follow-up. 2. Influenza A She has had influenza A recently. She states she has recuperated from this. However this could be the precursor for her acute pericarditis. Comment: The patient's case has been discussed and reviewed with the patient and Dr. Anderson the [facility] emergency department staff. The [facility] hospitalist staff assistance in the patient's evaluation and care as most appreciated. This note was generated with [employer] dictation software. It may contain incorrect words, spelling, and punctuation that were not noted in checking the note before signing. 02/22/182109 <Electronically signed by Cody Lomas MD> Date Cody Lomas MD Cosigner Signature (if applicable): Date CC: Renu Mejia Signed HISTORY AND PHYSICAL Observed: 02/22/2018 Status: F Source: [place] EXAM 4:29 PM [facility] REPOSITORY [facility] Medical Records Department [address] [place] [address] History and Physical 02/22/18 1220 MR#: [id number] Acct: [id number] Name: LIV WAGNER Rep #: [id number] : 1970 47 From: Amy Trejo MD PCP: Renu Mejia DO Status: ADM IN Y Location: [place] [address] Problem List (1) Chest pain Status: Acute History of Present Illness Date of Admission: 02/22/18 Chief Complaint: chest pain The patient is a 47 year old F with a history of endometriosis s/p hysterectomy. SHe was admitted through the ED on 02/22/18 with a complaint of chest pain, which was rated 6/10, sharp, retrosternal, aggravated by lying down and relieved by sitting up. She had associated pleuritic chest pain, but denied any SOB, fever, chills, palpitations, abdominal pain, diarrhea or vomiting. Review of systems was otherwise negative. She contracted the flu 3 weeks ago which has since resolved. She currently doesnt have any URTI symptoms.IN the Ed, her vitals were stable. Initial troponin was neative, and CXR showed no acute cardiopulmonary process. EKG showed NSR with possible left atrial enlargement and nonspecifit T wave changes. She had a stat echocardiogram done in Ed which showed no evidence of pericardial fluid. She is being admitted to be managed for pericarditis. [] Past Medical History Allergies meperidine [From Demerol] Allergy (Verified 02/22/18 08:06) Vomiting Home Medications: Ambulatory Orders Medication Instructions Recorded cholecalciferol (vitamin D3) 1,000 1,000 unit PO DAILY 02/04/18 unit capsule estradiol 4 mcg vaginal insert 0.5 mcg TRANSDERM. QWEEK 02/04/18 Surgical History: Surgical History (Last Updated 02/04/18 @ 14:00 by Syliva Yen) H/O oophorectomy History of cholecystectomy Z90.49 History of hysterectomy Z90.710 Hx of appendectomy Z90.49 [employer] History: endometriosis Lives: With Family Smoking Status: Never smoker Alcohol: Occasional - *Family History Maternal Family History: Family History (Last Updated 02/04/18 @ 14:00 by Sylvia Yen) Other Diabetes Hypertension Leukemia History Items: Diabetes, Heart Disease, Hypertension Paternal Family History: Family History (Last Updated 02/04/18 @ 14:00 by Sylvia Yen) Other Diabetes Hypertension Leukemia History Items: Diabetes, Heart Disease, Hypertension Review of Systems Constitutional: Denies: Chills, Fever, Malaise, Weakness, Weight Change Eyes: Denies: Blurred vision HEENT: Denies: Head Aches, Sinus Congestion, Sinus Drainage Cardiovascular: Reports: Chest Pain. Denies: Chest Pressure, Chest Tightness, Edema, Heaviness, Orthopnea, Palpitations, Paroxysmal Noc. Dyspnea, Syncope Respiratory: Reports: Pleuritic Pain. Denies: Cough, Hemoptysis, Shortness of Breath, Shortness of breath upon exertion, Sputum production, Wheezing Gastrointestinal: Denies: Abdominal Pain, Nausea, Vomiting Genitourinary: Denies: Dysuria Musculoskeletal: Denies: Joint Pain, Joint Tenderness Skin: Denies: Rash, Wounds Neurological: Denies: Numbness, Tingling, Focal weakness Psychiatric: Denies: Anxiety, Depression, Homicidal Ideations, Suicidal Ideations Hematologic/ Lymphatic: Denies: Easy Bruising, Easy Bleeding VTE Information - Inpt Only VTE Present on Admission: No VTE Pharm Prophylaxis ordered?: Yes - Physical Exam General: Alert, Oriented x3, Cooperative, - - looks uncomfortable HEENT: Atraumatic, PERRLA, EOMI, Normocephalic Oral: Moist Mucosa Neck: Supple, No JVD, Negative Carotid Bruits Lungs: Clear to auscultation, Normal air movement, No rhonchi, No wheeze, No rales Cardiovascular: Regular rate, Regular Rhythm, Normal S1, Normal S2, No murmurs Abdomen: Bowel Sounds Present, Soft, Non Tender Extremities: No clubbing, No cyanosis, No edema, Capillary Refill Less than 3 Seconds Skin: No rashes, No breakdown Musculoskeletal: No Tenderness to Palpation of Joints or Extremities Lymphatic: No Cervical, Supraclavicular, or Inguinal Adenopathy Neurological: Cranial nerves II-XII grossly intact Psych/Mental Status: Normal Affect, Appropriate, Alert and oriented to time, place, person, mood and affect Vital Signs Temp Pulse Resp BP Pulse Ox 97.1 F L 72 19 H 104/61 97 02/22/18 08:07 02/22/18 10:06 02/22/18 10:06 02/22/18 10:06 02/22/18 10:06 Oxygen Delivery Method Room Air Weight: 158 lb 4.67 oz Body Mass Index (BMI) 28.9 Laboratory Tests Past 24 Hrs WBC 5.3 RBC 4.88 Hgb 14.7 Diagnostic Data Chest X-Ray 02/22/18 08:24 IMPRESSION: Normal x-ray examination of the chest. Electronically Signed: Leroy Aj MD at 9:14 EST Tel [phone], Service support , Assessment/Plan All Active Problems (Last Reviewed 02/04/18 @ 14:00 by Sylvia Yen) Chest pain (Acute) Influenza A (Acute) 47 y/o female admitted with a complaint of chest pain after she had a recent flu infection 1. Acute pericarditis due to influenza infection * chest pain rated 6-10, sharp, retrosternal, aggravated by lying down and taking deep breaths. relieved by sitting up * EKG not very classic of pericarditis, with no diffuse ST segment elevation * however, clinical picture is classic for pericarditis * admit to PCU with telemetry * 2D echo: Left ventricular systolic function is normal. The estimated ejection fraction is 65 %.Trivial tricuspid valve insufficiency. Unable to estimate RV systolic pressure/pulmonary artery pressure due to technically difficult study. Normal diastology for age. * initial troponin negative; will cycle * start high dose ibuprofen * 2. Endometriosis s/p hysterectomy * on estrogen patch. * 3. Vitamin D deficiency: on oral vitamin D supplementation DVT prophylaxis: heparin GI prophylaxis: famotidine. Code Visit Inpatient E AND M: [id number] Init Hosp L3 02/22/18 1629 <Electronically signed by Amy Trejo MD> Date Amy Fe Koram MD Cosigner Signature: Date (if applicable) CC: Renu Mejia DO; Amy Trejo MD Signed TROPONIN-I Collected: 02/22/2018 Status: F Source: [place] 3:55 PM [facility] REPOSITORY Order Comment: 'TROP' Serial specimen #1, #2 or #3: 2 TYPE CODE TESTS RESULT OUT OF RANGE REFERENCE UNITS LAB L501.4010 <0.045 ng/mL Normal < 0.015 TROPONIN-I Result Comment: TROPONIN-I EXPECTED VALUES <0.045 Negative 0.045 - 0.590 Consistent with Cardiac Damage > OR = 0.600 Critical Value Not every elevated troponin is indicative of NC. These values should be used with clinical judgement in examining the patient's clinical picture for diagnosis. To establish a diagnosis of NC versus myocardial injury, there must be a demonstrated rise and/or fall in the troponin values, in addition to ischemic symptoms, EKG changes, new regional wall motion abnormality, and/or angiographical evidence. PLEASE NOTE: REFERENCE RANGES EDITED 17 Performed By: #### L501.4010 #### [facility] [address] [place], [address] TROPONIN-I Collected: 02/22/2018 Status: F Source: [place] 1:35 PM [facility] REPOSITORY Order Comment: 'TROP' Serial specimen #1, #2 or #3: 1 TYPE CODE TESTS RESULT OUT OF RANGE REFERENCE UNITS LAB L501.4010 <0.045 ng/mL Normal < 0.015 TROPONIN-I Result Comment: TROPONIN-I EXPECTED VALUES <0.045 Negative 0.045 - 0.590 Consistent with Cardiac Damage > OR = 0.600 Critical Value Not every elevated troponin is indicative of NC. These values should be used with clinical judgement in examining the patient's clinical picture for diagnosis. To establish a diagnosis of NC versus myocardial injury, there must be a demonstrated rise and/or fall in the troponin values, in addition to ischemic symptoms, EKG changes, new regional wall motion abnormality, and/or angiographical evidence. PLEASE NOTE: REFERENCE RANGES EDITED 17 Performed By: #### L501.4010 #### [facility] [address] [place], [address] EMERGENCY DEPARTMENT Observed: 02/22/2018 Status: F Source: [place] SUMMARY 12:22 PM [facility] REPOSITORY [facility] Medical Records Department [address] [place] [address] Emergency Department Summary 02/22/18 1217 MR#: [id number] Acct: [id number] Name: LIV WAGNER Rep #: [id number] : 1970 47 From: Garett Anderson MD PCP: Renu Mejia DO Status: REG ER - ER Visit Summary Date of Service: 02/22/18 Chief Complaint: Left-sided chest pain that is positional and pleuritic. History of Present Illness: The patient is a 47 F who was diagnosed with influenza a February 04. She presents with chest pain that has a pleuritic and positional component since Sunday. She reports improvement leaning forward and significant pain lying flat on her back. She denies fever, chills or night sweats. She denies orthopnea or PND. She does complain of mild shortness of breath and mild dyspnea with exertion. [...] are intact. TMs are pearly white with landmarks noted. Nares patent with no drainage. Posterior [...] Abdomen soft nontender. There is no asymmetry, swelling, discoloration, leg vein distention, palpable cords or tenderness along the distribution of the deep venous system. Neuro exam is nonfocal. Test Results: EKG sinus rhythm rate of [address]-T wave changes and unchanged compared to EKG from 9 years ago. TN interval normal. QRS duration normal. QT interval is prolonged. [place] is normal. CBC unremarkable. Troponin normal. ESR 10. Transthoracic echo was obtained and revealed no effusion. Left ejection fraction normal. Emergency Department Course and Treatment: Workup for pericarditis, pneumonia, myocarditis. Consulted Dr. Lomas. Dr. Lomas requested admission for pain management. He requested 30 Hess grams Toradol in the emergency department and for the hospital to start indomethacin and colchicine on the unit. Treatment Plan: Anti-inflammatory and colchicine Disposition: Medical surge unit telemetry Impression: Acute pericarditis Recent diagnosis of influenza A This note was generated with [employer] dictation software. It may contain incorrect words, spelling, and punctuation that were not noted in review of the chart prior to signing ED Disposition - Plan for ED Patient: Chief Complaint: Chest Other Referrals: Renu Mejia DO [Primary Care Provider] - What to do if you have Problems For any increased pain, shortness of breath, bleeding, nausea or vomiting, chest pain, or any unexpected problems, contact your Primary Care Provider. Call [facility] ([phone]) or report to the closest Emergency Room. Call 911 if necessary. 02/22/18 1222 <Electronically signed by Garett Anderson MD> Date Garett Anderson MD Cosigner Signature (If Indicated): Date CC: Renu Mejia DO; Cody Lomas MD ECHOCARDIOGRAM COMPLETE Observed: 02/22/2018 Status: F Source: [place] 12:03 PM [facility] REPOSITORY [facility] Cardiovascular Services [address] [place] [address] Echo Complete 02/22/18 1020 MR#: [id number] Acct: [id number] Name: LIV WAGNER Rep #: [id number] : 1970 47 From: Cody Lomas MD Attending Dr: Status: REG ER Ordering Dr: Garett Anderson MD Date: 02/22/18 Location: ED Sex: F C Admitted: Reason For Study: Chest pain Procedure This was a 2D Doppler, Color Flow transthoracic echocardiogram. The study was technically difficult. Pt. scanned sitting up due to chest pain. Exam performed portable in ED. Left Ventricle Normal LV size. Left ventricular systolic function is normal. The estimated ejection fraction is 65 %. Normal diastology for age. No regional wall motion abnormalities noted. Right Ventricle Normal RV size. Normal systolic function. Atria Normal left atrium. Normal right atrium. No doppler evidence for ASD. Mitral Valve There is no mitral annular calcification. Normal mitral valve. Tricuspid Valve Normal tricuspid valve. Trivial tricuspid valve insufficiency. Unable to estimate RV systolic pressure/pulmonary artery pressure due to technically difficult study. Aortic Valve The aortic valve is not well visualized. Pulmonic Valve The pulmonic valve is not well visualized. Great Vessels Normal sized aortic root. Pericardium/Pleural No pericardial effusion. MMode/2D Measurements AND Calculations LVIDd: 3.8 cm IVSd: 0.72 cm Ao root diam: 2.9 cm LVIDs: 2.3 cm LVPWd: 0.79 cm FS: 38.9 % LAV(MOD-bp): 18.0 ml LA A4 area: 10.0 cm2 LA dimension(2D): 1.9 cm LAV(MOD-bp) Indexed: 10.4 ml/m2 LAV(MOD-sp2): 16.0 ml LAV(MOD-sp4): 19.8 ml RA A4 area: 9.3 cm2 Doppler Measurements AND Calculations MV E max luke: 81.5 cm/sec Lat Peak E' Luke: 9.8 cm/sec Med Peak E' Luke: 10.7 cm/sec MV A max luke: 55.1 cm/sec E/E' lat: 8.3 E/E' med: 7.6 MV E/A: 1.5 Ao V2 max: 133.7 cm/sec LV V1 max: 116.6 cm/sec PA V2 max: 95.3 cm/sec Ao max P.2 mmHg LV V1 max P.4 mmHg Interpretation Summary The study was technically difficult. Left ventricular systolic function is normal. The estimated ejection fraction is 65 %. Trivial tricuspid valve insufficiency. Unable to estimate RV systolic pressure/pulmonary artery pressure due to technically difficult study. Normal diastology for age. Ordering Physician: Garett Anderson Performed By: Virginia Galeano RDCS 02/22/18 1202 Date Cody Lomas MD CC: Renu Mejia DO; Garett Anderson MD Date Dictated: 02/22/18 1020 Date Transcribed: 02/22/18 1202 Salvage Laborer: Signed ERYTHROCYTE SED RATE Collected: 02/22/2018 Status: F Source: [place] 8:35 AM [facility] REPOSITORY TYPE CODE TESTS RESULT OUT OF RANGE REFERENCE UNITS LAB L102.0000 0-20 mm/hr Normal SED RATE 10 Performed By: #### L101.9900, L100.0100 #### [facility] [address] [place], [address] CBC W/DIFF, AUTOMATED Collected: 02/22/2018 Status: F Source: [place] 8:35 AM [facility] REPOSITORY TYPE CODE TESTS RESULT OUT OF RANGE REFERENCE UNITS LAB L100.1000 4.4-11.0 K/mm3 Normal WBC 5.3 LAB L100.1200 4.2-5.4 M/mm3 Normal RBC 4.88 LAB L100.1300 12.0-15.0 g/dl Normal HGB 14.7 LAB L100.1400 37-47 % Normal HCT 43.7 LAB L100.1500 81-99 fL Normal MCV 89.5 LAB L100.1600 27.0-32.0 pg Normal MCH 30.1 LAB L100.1700 32-36 g/gl Normal MCHC 33.6 LAB L100.1810 11.6-14.6 % Normal RDW CV 12.8 LAB L100.1820 35.1-43.9 fl Normal RDW SD 41.6 LAB L100.1900 150-450 K/mm3 Normal PLT 308 LAB L100.2000 6.2-12.0 fl Normal MPV 11.4 LAB L100.2100 47-70 % Normal NEUT% 51.1 LAB L100.2200 19-41 % Normal LY% 36.5 LAB L100.2300 0-10 % Normal MONO% 9.2 LAB L100.2400 0-5 % Normal EO% 1.9 LAB L100.2500 0-1 % High BASO% 1.1 LAB L100.2550 0.0-0.9 % Normal IM GRAN % 0.200 Result Comment: IG% - Immature Granulocytes (promyelocytes, myelocytes and metamyelocytes) > 1% indicates that a LEFT SHIFT is Present. LAB L100.2620 2.0-7.7 X10 3/uL Normal Absolute Neut 2.7 LAB L100.2720 0.83-4.51 X10 3/ul Normal Absolute Lymph 1.94 Performed By: #### L101.9900, L100.0100 #### [facility] [address] [place], [address] TROPONIN-I Collected: 02/22/2018 Status: F Source: [place] 8:35 AM [facility] REPOSITORY TYPE CODE TESTS RESULT OUT OF RANGE REFERENCE UNITS LAB L501.4010 <0.045 ng/mL Normal < 0.015 TROPONIN-I Result Comment: TROPONIN-I EXPECTED VALUES <0.045 Negative 0.045 - 0.590 Consistent with Cardiac Damage > OR = 0.600 Critical Value Not every elevated troponin is indicative of NC. These values should be used with clinical judgement in examining the patient's clinical picture for diagnosis. To establish a diagnosis of NC versus myocardial injury, there must be a demonstrated rise and/or fall in the troponin values, in addition to ischemic symptoms, EKG changes, new regional wall motion abnormality, and/or angiographical evidence. PLEASE NOTE: REFERENCE RANGES EDITED 17 Performed By: #### L501.4010 #### [facility] [address] [facility] [place], [address] CHEST PA AND LATERAL Observed: 02/22/2018 Status: F Source: [place] 8:26 AM [facility] REPOSITORY [facility] Imaging Services [address] [place] [address] Chest PA and Lateral MR#: [id number] Acct: [id number] Name: LIV WAGNER Rep #: [id number] : 1970 F 47 From: Leroy Aj MD PCP: Renu Mejia DO Status: PRE ER Study: Chest PA and Lateral Date of Exam: 02/22/18 Exam# [id number] Ordering Dr: Garett Anderson MD STUDY: X-RAY CHEST REASON FOR EXAM: Female, 47 years old. Left-sided chest pain. TECHNIQUE: PA and lateral views of the chest. COMPARISON: None. FINDINGS: EKG electrodes are seen. The lungs are clear and expanded. There [...] Leroy Aj MD at 9:14 EST Tel [phone], Service support , CC: Renu Mejia DO; Garett Anderson MD Salvage Laborer: Signed URGENT CARE VISIT Observed: 02/04/2018 Status: F Source: [place] REPORT 2:14 PM [facility] REPOSITORY [facility] [address] [place] [address] OFFICE VISIT Date of Service: 02/04/18 MR#: [id number] Acct: [id number] Name: LIV WAGNER Rep #: [id number] : 1970 Provider: Yoan FORET Age/Sex: 47/F Location: [facility] Status: Signed Intake Vital Signs02/04/18 Height 5 ft 3 in Intake Visit Reasons: FEVER , COUGH Chief Complaint: Chills, dry cough, body aches Allergies meperidine [From Demerol] Allergy (Verified 02/04/18 13:50) Vomiting Medications cholecalciferol (vitamin D3) 1,000 unit capsule 1,000 unit PO DAILY 02/04/18 [History Confirmed 02/04/18] estradiol 4 mcg vaginal insert 4 mcg VAGINAL 2XW 02/04/18 [History Confirmed 02/04/18] oseltamivir 75 mg capsule 75 mg PO BID 5 Days #10 cap 02/04/18 [Rx Confirmed 02/04/18] [facility] Surgical History H/O oophorectomy (Acute) History of cholecystectomy (Acute) History of hysterectomy (Acute) Hx of appendectomy (Acute) Family History Other Diabetes Hypertension Leukemia Social History Smoking Status: Never smoker alcohol intake: current alcohol intake frequency: holidays/special occasions only HPI HPI Chief Complaint: Chills, dry cough, body aches Details: LIV WAGNER, is a 47 F who presents to the office today for initial evaluation approximately 48-72-hour history of dry cough, chills, body aches. Patient notes having received the influenza vaccine a couple of weeks ago. She notes being around no family members with similar complaints. She notes no complaints of fever, sweats, rash, chest pain/shortness of breath. She is a non-smoker. She has taken no rifx-xsv-ziaqgsi products to assist with her symptoms. She notes no other associated symptoms, no alleviating or aggravating factors. ROS Const Constitutional: No other (ROS negative x10 other than as noted above) Exam Const General: cooperative (Though mildly warm to touch), healthy appearing, no acute distress Nutritional Appearance: average body habitus Orientation: alert, awake, oriented x3 HENMT Head: normal to inspection Ears: hearing grossly normal bilaterally, external ears normal, TM's normal bilaterally, EAC's normal Nose: external nose normal, nares normal, septum normal, no nasal discharge Face and sinus: normal facial exam, sinuses [...] inspection: normal inspection of the chest Resp Effort AND Inspection: normal respiratory effort, able to speak in complete sentences, symmetric chest movement, cough Quality of cough: dry Auscultation: Bilateral: Clear to Auscultation Cardio Palpation: normal PMI Rate: regular rate Rhythm: regular rhythm Heart Sounds: S1 normal, S2 normal, no gallops, no murmurs, no rubs Pulses: radial pulses present GI Inspection: normal to inspection Palpation: soft, no hepatosplenomegaly Skin General: no rashes or lesions noted Neuro General: alert, awake, oriented x3, gait normal Cognition: normal cognition Speech: speech normal Gait: normal gait Motor: muscle tone normal throughout Sensory Exam: no sensory deficits noted Psych Appearance: grossly normal Mental Status: mental status grossly normal Mood: congruent mood Affect: normal affect Speech and Movement: speech and movement normal Attitude: cooperative Thought Process: normal Thought Content: normal Judgment: judgment good Results BMSFLUAB Office Flu A AND B Pos FLU A AND Neg FLU B Last Edit by Sylvia Yen on 02/04/18 14:08 Assessment AND Plan Problems 1. Influenza A J10.1 Plan Patient aware today's rapid flu test was positive. Tamiflu as prescribed today. Work excuse offered; patient refused. Follow-up with PCP in 5-7 days should symptoms not improve, emergency department sooner should symptoms worsen or any other concerns develop. Patient states acknowledging understanding all the above. This note was generated with [employer] dictation software. It may contain incorrect words, spelling, and punctuation that were not noted in checking the note before signing. Orders Orders: Medications New: Coding Level of Care Code Off vis,new,level 3 Diagnoses Influenza A J10.1 02/04/18 1414 <Electronically signed by Yoan FORTE> Date Yoan FORTE Cosigner Signature: Date (if applicable) CC: MICROALB:CREAT Collected: 11/12/2017 Status: F Source: [place] RATIO,[place] 10:19 AM [facility] REPOSITORY TYPE CODE TESTS RESULT OUT OF RANGE REFERENCE UNITS LAB L501.1200 NO RANGE EST. mg/dL Normal UR CREAT 92.20 LAB L502.0500 NO RANGE EST. mg/L Normal 5.6 MICROALBUMIN ,UR LAB L502.0600 <30 mg/g CRE mg/g CRE Normal 6.0 MALB:CREAT Performed By: #### L502.0250 #### [facility] [address] [place], [place], [address] CBC W/DIFF, AUTOMATED Collected: 11/12/2017 Status: F Source: [place] 10:19 AM [facility] REPOSITORY TYPE CODE TESTS RESULT OUT OF RANGE REFERENCE UNITS LAB L100.1000 4.4-11.0 K/mm3 Low WBC 4.1 LAB L100.1200 4.2-5.4 M/mm3 Normal RBC 4.34 LAB L100.1300 12.0-15.0 g/dl Normal HGB 13.0 LAB L100.1400 37-47 % Normal HCT 39.2 LAB L100.1500 81-99 fL Normal MCV 90.3 LAB L100.1600 27.0-32.0 pg Normal MCH 30.0 LAB L100.1700 32-36 g/gl Normal MCHC 33.2 LAB L100.1810 11.6-14.6 % Normal RDW CV 13.2 LAB L100.1820 35.1-43.9 fl Normal RDW SD 43.5 LAB L100.1900 150-450 K/mm3 Normal PLT 286 LAB L100.2000 6.2-12.0 fl Normal MPV 11.2 LAB L100.2100 47-70 % Low NEUT% 40.2 LAB L100.2200 19-41 % Normal LY% 40.8 LAB L100.2300 0-10 % High MONO% 14.4 LAB L100.2400 0-5 % Normal EO% 3.7 LAB L100.2500 0-1 % Normal BASO% 0.7 LAB L100.2550 0.0-0.9 % Normal IM GRAN % 0.200 Result Comment: IG% - Immature Granulocytes (promyelocytes, myelocytes and metamyelocytes) > 1% indicates that a LEFT SHIFT is Present. LAB L100.2620 2.0-7.7 X10 3/uL Low Absolute Neut 1.6 LAB L100.2720 0.83-4.51 X10 3/ul Normal Absolute Lymph 1.67 Performed By: #### L100.0100 #### [facility] [address] [place], [address] HEMOGLOBIN A1C Collected: 11/12/2017 Status: F Source: [place] 10:19 AM [facility] REPOSITORY TYPE CODE TESTS RESULT OUT OF RANGE REFERENCE UNITS LAB L501.9985 4.2-6.3 % Normal HGB A1C 5.4 Performed By: #### L501.9985 #### [place] [facility] [address] [place], [address] COMPREHENSIVE METABOLIC Collected: 11/12/2017 Status: F Source: [place] [facility] 10:19 AM [facility] REPOSITORY TYPE CODE TESTS RESULT OUT OF RANGE REFERENCE UNITS LAB L501.0100 74-106 mg/dL Normal GLU 94 Result Comment: Please note revised GLUCOSE reference range effective 2017. LAB L501.1000 7-18 mg/dL Normal BUN 9 LAB L501.1100 0.55-1.02 mg/dL Normal CREAT,SERUM 0.71 Result Comment: The validity of the calculated GFR AND GFRAA in patients over 70 years has not been determined. Clinical correlation is essential. LAB L501.1110 >60 mL/min Normal EST GFR 94 Result Comment: Non- GFR Calc LAB L501.1115 >60 mL/min Normal EST GFR - AA 114 Result Comment: GFR Calc LAB L501.1300 10-20 RATIO Normal BUN/CRE 12.6 LAB L501.1500 6.4-8.2 g/dL T Normal PROT 7.2 LAB L501.1800 3.2-5.0 g/dL Normal ALB 3.6 LAB L501.1950 2.2-4.2 g/dL Normal GLOB 3.6 LAB L501.2000 0.9-2.4 RATIO Normal A/G 1.0 LAB L501.2200 8.5-10.1 mg/dL CA Normal 8.8 LAB L501.4100 15-37 U/L Normal AST 17 LAB L501.4305 45-117 U/L Normal ALK P 106 LAB L501.4405 13-56 U/L Normal ALT 23 LAB L501.4600 0.20-1.00 mg/dL T Normal BILI 0.50 LAB L501.5300 136-145 mmol/L NA Normal 142 LAB L501.5600 3.5-5.1 mmol/L K Normal 4.1 LAB L501.5900 98-107 mmol/L CL Normal 105 LAB L501.6100 21.0-32.0 mmol/L Normal CO2 28.0 LAB L501.6200 5-15 Normal GAP 9 Performed By: #### L500.4050, L500.4100, L501.9520 #### [facility] [address] [place], [address] LIPID PROFILE Collected: 11/12/2017 Status: F Source: [place] 10:19 AM [facility] REPOSITORY TYPE CODE TESTS RESULT OUT OF RANGE REFERENCE UNITS LAB L501.4900 200 mg/dL High CHOL 230 Result Comment: <200 mg/dL Desirable 200-240 mg/dL Borderline >240 mg/dL High Risk LAB L501.5000 mg/dL Normal TRIG 100 Result Comment: The drugs N-Acetylcysteine and Metamizole may falsely depress this assay. Serum Triglycerides Reference Interval Normal <150 mg/dL Borderline high 150 - 199 mg/dL High 200 - 499 mg/dL Very High > or = 500 mg/dL LAB L501.6400 mg/dL Normal HDL 85 Result Comment: The drugs N-Acetylcysteine and Metamizole may falsely depress this assay. Reference Range HDL <40 mg/dL Low HDL Cholesterol HDL >or= 60 mg/dL High HDL Cholesterol LAB L501.6500 0-130 mg/dL Normal LDL 125 LAB L501.6600 5-40 mg/dL Normal VLDL 20 Performed By: #### L500.4050, L500.4100, L501.9520 #### [facility] [address] [facility] [address] [place], [place], [address] THYROID STIM HORMONE Collected: 11/12/2017 Status: F Source: [place] ([facility]) 10:19 AM [facility] REPOSITORY TYPE CODE TESTS RESULT OUT OF RANGE REFERENCE UNITS LAB L501.9520 0.358-3.74 uIU/mL Normal TSH 0.89 Performed By: #### L500.4050, L500.4100, L501.9520 #### [facility] [address] [facility] [place], [address] LIPOPROTEIN A Collected: 11/12/2017 Status: F Source: [place] 10:19 AM [facility] REPOSITORY TYPE CODE TESTS RESULT OUT OF RANGE REFERENCE UNITS LAB L3400.4600 <75 nmol/L Lipoprotein Normal A <10 Result Comment: Note: Values greater than or equal to 75 nmol/L may indicate an independent risk factor for CHD, but must be evaluated with caution when applied to non- populations due to the influence of genetic factors on Lp(a) across ethnicities. Performed at: - [facility] [address] [id number] [employer]: Keith Chun PhD, Phone: [phone] Performed By: #### L3400.4600 #### [facility] (refer to report for specific site) refer to report for address and phone number DEXA BONE DENSITY Observed: 06/28/2017 Status: F Source: [place] STUDY () 1:25 PM [facility] REPOSITORY [facility] Imaging Services [address] [place] [address] Dexa Bone Density Study () MR#: [id number] Acct: [id number] Name: LIV WAGNER Sherie Rep #: [id number] : 1970 F 46 From: Leroy Aj MD PCP: Status: [facility] Study: Dexa Bone Density Study () Date of Exam: 06/28/17 Exam# [id number] Ordering Dr: Renu Mejia DO STUDY: DUAL ENERGY X-RAY ABSORPTIOMETRY / DXA REASON FOR EXAM: Female, 46 years old. Early menopause. No loss of height. TECHNIQUE: Bone Mineral Density (BMD) measurements of lumbar spine and bilateral hips were obtained. COMPARISON: Comparison is made with prior study dated March 26, 2012. FINDINGS: Lumbar Spine (L1-L4): g/cm2 (0.977) / T-score (-1.7) / Z-score (-1.6) Findings are suggestive of osteopenia with a moderate fracture risk. Left Femur Total: g/cm2 (0.695) / T-score (-2.5) / Z- score (-2.2) Left Femoral Neck: g/cm2 (0.688) / T-score (-2.5) / Z- score (-1.9) Right Femur Total: g/cm2 (0.697) / T-score (-2.5) / Z- score (-2.1) Right Femoral Neck: g/cm2 (0.700) / T-score (-2.4) / Z-score (-1.8) The T-Scores on the most recent prior examination were: Lumbar Spine (L1-L4): There has been worsening of bone density since the previous examination. Left Femur Total: which represents an improvement of 2.5%. Right Femur Total: which represents an improvement of 6.7%. HPBD/Dexa Bone Density Study (HP) IMPRESSION: The patient is considered osteopenic as outlined below according to World Esteban Organization (WHO) criteria with a high fracture risk. There has been improvement of bone density since the previous examination. Reference Information: The T-score is the number of standard deviations above or below the [...] follows: Mild -1 through -1.5 Moderate -1.6 through -2.0 Severe -2.1 through -2.4 The Z-score is the number of standard deviations above or below age-matched controls. A Z-score of less than -1.5 would be considered abnormal. References: 1. NIH Osteoporosis and Related Bone Diseases http://www.osteo.org 2. International Society for Clinical Densitometry http://www.iscd.org 3. National Osteoporosis Foundation http://www.nof.org Electronically Signed: Leroy Aj MD at 10:50 EDT Tel [phone], Service support , CC: Renu Mejia DO Salvage Laborer: Signed ALLERGIES ALLERGIES DATE TYPE / CODE NAME / CODE REACTION SEVERITY SOURCE 03/28/2018 Drug meperidine/F Vomiting Unknown [facility] Allergy/4160 [id number]( Hospital 60006(SNOMED NORM) Repository CT) ENCOUNTERS ENCOUNTERS ADMIT/DISCHARGE ACCOUNT ADMITTING ENCOUNTER LOCATION SOURCE NUMBER CLASS 04/13/2018 [id number] Ambulatory [place] Avani 7 [facility] ing:LAB.FUTUR Repository E 04/06/2018 [id number] Ambulatory [place] 5 [facility] ing:LAB.FUTUR Repository E 04/05/2018 [id number] Ambulatory [place] 8 [facility] ing:US Repository 03/28/2018/ [id number] Ambulatory BMSBuilding:B [place] 8 4 [facility] Repository 03/28/2018 [id number] [place] 5 [facility] ing:LAB Repository 03/05/2018 [id number] Ambulatory BMSBuilding:W [place] 1 [facility] Repository 03/05/2018 [id number] Ambulatory [place] 9 [facility] ing:[facility]S Repository 03/04/2018 [id number] Ambulatory Building:[facility] Practices Repository 03/04/2018/ [id number] Emergency [place]i [place] 8 8 [facility] ing:ED Repository 02/22/2018 [id number] Amy Trejo Ambulatory BMSBuilding:B [place] 3 Fe [facility] Repository 02/22/2018 [id number] Amy Trejo Ambulatory BMSBuilding:B [place] 6 Fe MS.CF.[facility] Repository 02/22/2018 [id number] Amy Trejo Ambulatory BMSBuilding:B [place] 6 Fe MS.[facility] Repository 02/22/2018 [id number] Amy Trejo Ambulatory BMSBuilding:B [place] 9 Fe [facility] Repository 02/22/2018/ [id number] Amy Trejo Inpatient Avani [place] 8 1 Fe Encounter [facility] ing:PCURoom: Repository [id number]: 1 02/04/2018/ [id number] Ambulatory BMSBuilding:B [place] 8 1 [facility] Repository 11/12/2017 [id number] Ambulatory [place] 0 [facility] ing:MTLAB Repository 06/28/2017 [id number] Ambulatory [place] 5 [facility] ing:BD Repository PAYERS PAYERS ENCOUNTER GUARANTOR PAYER SUBSCRIBER SOURCE 04/13/2018 LIV L Primary LIV L [place] [id number] JEFF Insurance:[employer] HLTH YODERDOB: [address] [address]Vcm: Number: Repository [id number] () Date:0264-47-33BD [address] [address]CV: 04/13/2018 Secondary NOT GIVENUNK [place] Insurance:SELF PAY [facility] Number: Effective Repository Date:2018-04-10 04/06/2018 LIV L Primary LIV L [place] [id number] [facility] Insurance:UNITED [facility] YODERDOB: [address] [address]Rtt: Number: Repository [id number] () Date:4940-65-37LZ [address] [place] [address]EH: 04/06/2018 Secondary NOT GIVENUNK [place] Insurance:SELF PAY [facility] Number: Effective Repository Date:2018-04-01 04/05/2018 LIV L Primary LIV L [place] [id number] JEFF Insurance:UNITED TH YODERDOB: [address] [address]Exr: Number: Repository [id number] (HP) Date:2230-51-17XG [address] [address]AW: 04/05/2018 Secondary NOT GIVENUNK [place] Insurance:SELF PAY [facility] Number: Effective Repository Date:2018-04-01 03/28/2018 LIV L Primary LIV L [place] [id number] JEFF Insurance:[employer] YODERDOB: [address], [place] [address]Zhu: Number: Repository [id number] (HP) Date:8647-73-51LT [address] [place] [address]OT: 03/28/2018 Secondary NOT GIVENUNK [place] Insurance:SELF PAY [facility] Number: Effective Repository Date:2018-02-25 03/28/2018 LIV L Primary LIV L [place] [id number] JEFF Insurance:UNITED TH YODERDOB: [address] [address]Kyi: Number: Repository [id number] (HP) Date:4822-08-30N[place] [address] [address]SK: 03/28/2018 Secondary NOT GIVENUNK [place] Insurance:SELF PAY [facility] Number: Effective Repository Date:2018-03-12 03/05/2018 LIV L Primary LIV L [place] [id number] JEFF Insurance:UNITED TH YODERDOB: [address] [address]Zso: Number: Repository [id number] (HP) Date:5359-35-45JP [address] [place] [address]XX: 03/05/2018 Secondary NOT GIVENUNK [place] Insurance:SELF PAY [facility] Number: Effective Repository Date:2018-03-05 03/05/2018 LIV L Primary LIV L [place] [id number] [facility] Insurance:UNITED TH YODERDOB: [address] [id number], [place] [address]Npf: Number: Repository [id number] () Date:3203-15-08OJ [address], [place] [address]IN: 03/05/2018 Secondary NOT GIVENUNK [place] Insurance:SELF PAY [facility] Number: Effective Repository Date:2018-03-04 03/04/2018 Liv L Primary Liv L [facility] YoderDOB: Insurance:United YoderDOB: Repository [id number] [facility] [id number] [place] Number: 1 [facility] [id number] [place], [place] [address]Mgr: Date:8102-62-69[place], [place] [address]Tyc: Name:[facility] Box (HP)Tel: [phone], [place] (HP) [phone] (WP) [address]MP: 03/04/2018 Secondary Liv L [facility] Practices Insurance:[employer] YoderDOB: Repository icy Number: [id number] 1 [facility] Date:2015-04-16 - [facility] 7950-06-78Fpuu [place], [place] [address]Dqh: Name:[facility] Box ~(3 [phone] [place] 30 (HP) [id number]: 03/04/2018 LIV L Primary LIV L [place] [id number] [facility] Insurance:UNITED HLTH YODERDOB: [place] [id number] [id number] [address]Eqr: Number: Repository [id number] (HP) Date:2072-35-95AU [address] [address]GN: 03/04/2018 Secondary NOT GIVENUNK [place] Insurance:SELF PAY [facility] Number: Effective Repository Date:2018-03-04 02/22/2018 LIV L Primary LIV L [place] [id number] JEFF Insurance:[employer] YODERDOB: [address] [address]Kbi: Number: Repository [id number] (HP) Date:4168-78-16NH [address] [address]LE: 02/22/2018 Secondary NOT GIVENUNK [place] Insurance:SELF PAY [facility] Number: Effective Repository Date:2018-02-22 02/22/2018 LIV L Primary LIV L [place] [id number] JEFF Insurance:[employer] YODERDOB: [address] [address]Jdq: Number: Repository [id number] (HP) Date:0293-23-83YF [address] [address]NF: 02/22/2018 Secondary NOT GIVENUNK [place] Insurance:SELF PAY [facility] Number: Effective Repository Date:2018-02-22 02/22/2018 LIV L Primary LIV L [place] [id number] JEFF Insurance:[employer] YODERDOB: [address] [address]Gsp: Number: Repository [id number] (HP) Date:3626-88-81MI [address] [address]SK: 02/22/2018 Secondary NOT GIVENUNK [place] Insurance:SELF PAY [facility] Number: Effective Repository Date:2018-02-22 02/22/2018 LIV L Primary LIV L [place] [id number] JEFF Insurance:UNITED TH YODERDOB: [address] [address]Nac: Number: Repository [id number] (HP) Date:7934-47-63WK [address]JNJMTTA, [place] [address]FA: 02/22/2018 Secondary NOT GIVENUNK [place] Insurance:SELF PAY [facility] Number: Effective Repository Date:2018-02-22 02/22/2018 LIV L Primary LIV L [place] [id number] [facility] Insurance:UNITED [facility] YODERDOB: [address] [address]Dxl: Number: Repository [id number] (HP) Date:9330-45-20QV [address]MPLAQIV, [place] [address]KW: 02/22/2018 Secondary NOT GIVENUNK [place] Insurance:SELF PAY [facility] Number: Effective Repository Date:2018-02-22 02/04/2018 LIV L Primary LIV L [place] [id number] JEFF Insurance:UNITED TH YODERDOB: [address], [place] [address]Zme: Number: Repository [id number] (HP) Date:8298-43-36QS [address]IVBVQGA, [place] [address]WG: 02/04/2018 Secondary NOT GIVENUNK [place] Insurance:SELF PAY [facility] Number: Effective Repository Date:2018-02-04 11/12/2017 LIV L Primary LIV L [place] [id number] JEFF Insurance:[employer] YODERDOB: [facility] [address]Sikflb 9260-27-20[place]DEF[place], [place] [address]Zlp: Number: Repository [id number] (HP) Date:0974-14-70[address]RWCDFQI, [place] [address]OJ: 11/12/2017 Secondary NOT GIVENUNK [place] Insurance:SELF PAY [facility] Number: Effective Repository Date:2017-11-12 06/28/2017 LIV L Primary LIV L [place] [id number] [facility] Insurance:[facility] YODERDOB: [facility] [address]Tajpzl 3167-69-59VWFFairfield, [place] [address]Vyh: Number: Repository [id number] (HP) Date:3946-50-68KN [address]BTEXSDN, [place] [address]TA: 06/28/2017 Secondary NOT GIVENUNK Avani Insurance:SELF PAY [facility] Number: Effective Repository Date:2017-06-07
== END ==
PROVIDERS: Family Provider Internal Medicine; PCP Internal Medicine; Referring Provider Internal Medicine; Visit Provider Internal Medicine
DX: R94.5 Abnormal results of liver function studies (principal)
CPT/HCPCS: 36415; 80076; 85025

== ENCOUNTER → 2018-04-05 08:59 | Outpatient (CLI) | payer OTHER, SELFPAY ==
[2018-03-28 15:46] VITALS: BMI 28.3
--- NOTE | 2018-04-05 09:02 | US_ITS ---
STUDY: ABDOMINAL ULTRASOUND - RIGHT UPPER QUADRANT REASON FOR VISIT: Female, 47 years old. Elevated liver enzymes, cholecystectomy in 2011 TECHNIQUE: Ultrasound evaluation of the right upper quadrant was performed with real-time and static reese-scale imaging. TECHNICAL QUALITY: Adequate. COMPARISON: 04/29/2009 FINDINGS: Liver: The liver measures 14.5 cm. There is normal echogenicity of the liver. The bile ducts are within normal limits. There is hepatic color flow. The direction of portal flow is hepatopetal. There are 2 mildly hyperechoic lesions of the right hepatic lobe measuring 1.3 and 1.6 cm, respectively. Gallbladder: The gallbladder is not visualized. Common Bile Duct (C.B.D.): The common bile duct measures 2.8 mm. Pancreas: There is normal echogenicity of the visualized pancreas. There is no demonstrated pancreatic mass or cyst. Right Kidney: Normal size of the right kidney. The right kidney measures 10.6 cm. Normal renal cortex. The right cortex measures 1.5 cm. There is no demonstrated renal mass or cyst. There is no right hydronephrosis. US/Liver IMPRESSION: 1. Status post cholecystectomy. No biliary dilation. 2. Right hemangiomata, stable. Electronically Signed: Matt Thrasher MD at 10:05 EST , Service support ,
[2018-04-05 11:46] LABS: AST(SGOT) 54 U/L (15-37); Alanine Aminotransfer ALT/SGPT 118 U/L (13-56); Albumin, Serum 3.8 g/dL (3.2-5.0); Alkaline Phosphatase 106 U/L (45-117); Bilirubin, Direct 0.15 mg/dL (0.00-0.30); Ferritin 77 ng/mL (8-252); GGTP 31 U/L (5-55); Globulin 2.7 g/dL (2.2-4.2); Protein, Total 6.5 g/dL (6.4-8.2)
[2018-04-06 16:13] LABS: Ceruloplasmin 19.6 mg/dL (19.0-39.0); HEPATITIS B SURFACE AG Negative (Negative); Hepatitis A AB, Total Negative (Negative); Hepatitis A IgM Antibody Negative (Negative); Hepatitis B Core AB IgM Negative (Negative); Hepatitis B Core Ab Total Negative (Negative); Hepatitis C Ab <0.1 s/co ratio (0.0-0.9)
[2018-04-07 08:34] LABS: Anti-Smooth Muscle ABS 7 Units (0-19); CMV Acute Antibody IgM < 30.0 AU/mL (0.0-29.9); Hep B Surface Antibodies Reactive (.); Transferrin 234 mg/dL (200-370)
[2018-04-08 12:39] LABS: ANTINUCLEAR ANTIBODIES DIRECT Negative (Negative); Anti-Mitochondrial AB <20.0 Units (0.0-20.0)
== END ==
PROVIDERS: Family Provider Internal Medicine; PCP Internal Medicine; Referring Provider Internal Medicine; Visit Provider Internal Medicine
DX: R94.5 Abnormal results of liver function studies (principal)
CPT/HCPCS: 36415; 76705; 80076; 82390; 82728; 82977; 83516; 84466; 86038; 86645; 86704; 86705; 86706; 86708; 86709; 86803; 87340

== ENCOUNTER → 2018-04-06 10:11 | Outpatient (CLI) | payer OTHER, SELFPAY ==
[2018-03-28 15:46] VITALS: BMI 28.3
[2018-04-10 09:05] LABS: Copper/Creat Ratio 7 ug/g creat (0-49)
[2018-04-10 11:55] LABS: Copper, 24Ur 63 ug/24 hr (3-35); Copper, Ur 14 ug/L (Not Estab.); Creatinine (CRT) 1.97 g/L (0.30-3.00)
== END ==
PROVIDERS: Family Provider Internal Medicine; PCP Internal Medicine; Referring Provider Internal Medicine; Visit Provider Internal Medicine
DX: R94.5 Abnormal results of liver function studies (principal)
CPT/HCPCS: 82570

== ENCOUNTER → 2018-04-13 10:40 | Outpatient (CLI) | payer OTHER, SELFPAY ==
[2018-03-28 15:46] VITALS: BMI 28.3
[2018-04-13 11:51] LABS: AST(SGOT) 137 U/L (15-37); Alanine Aminotransfer ALT/SGPT 247 U/L (13-56)
== END ==
PROVIDERS: Family Provider Internal Medicine; PCP Internal Medicine; Referring Provider Internal Medicine; Visit Provider Internal Medicine
DX: R94.5 Abnormal results of liver function studies (principal)
CPT/HCPCS: 36415; 84450; 84460

== ENCOUNTER → 2019-02-17 08:49 | Outpatient (CLI) | payer OTHER, SELFPAY ==
[2019-02-17 08:49] VITALS: BMI 25.7
--- NOTE | 2019-02-17 08:51 | RAD_ITS ---
STUDY: X-RAY - RIGHT FOOT CLINICAL: Female, 48 years old. Anterior and lateral foot pain following a fall. TECHNIQUE: 3 view(s) of the foot. COMPARISON: None. FINDINGS: Normal talus, calcaneus, and tarsal bones. Normal visualized subtalar, talonavicular, calcaneocuboid, tarsal and tarsometatarsal articulations. Normal metatarsi. Normal metatarsophalangeal joint of the great toe. Normal tibial and fibular sesamoid bones. Normal interphalangeal joint of the great toe. Normal phalanges of the great toe. Normal second through fifth metatarsophalangeal joints. Normal interphalangeal joints and phalanges of the lesser toes. Soft tissue swelling. RAD/Foot min 3 Views IMPRESSION: Soft tissue swelling. Electronically Signed: Leroy Aj, at 9:41 EST , Service support ,
--- NOTE | 2019-02-17 08:51 | RAD_ITS ---
STUDY: X-RAY - RIGHT ANKLE REASON FOR EXAM: Female, 48 years old. Anterior and lateral pain following a fall. TECHNIQUE: 3 view(s) of the ankle. COMPARISON: None. FINDINGS: Normal visualized distal tibia and fibula. Normal medial and lateral malleoli. Normal tibiotalar articulation and ankle mortise. Normal visualized talus and calcaneus. The visualized subtalar, talonavicular, calcaneocuboid and tarsal articulations are normal. The soft tissue structures are unremarkable. RAD/Ankle min 3 Views IMPRESSION: Normal x-ray examination of the ankle. Electronically Signed: Leroy Aj, at 9:41 EST , Service support ,
== END ==
PROVIDERS: Family Provider Internal Medicine; PCP Internal Medicine; Referring Provider Physician Assistant; Visit Provider Physician Assistant
DX: S99.911A Unspecified injury of right ankle, initial encounter (principal); S99.921A Unspecified injury of right foot, initial encounter
CPT/HCPCS: 73610; 73630

== ENCOUNTER → 2019-09-26 12:13 | Outpatient (CLI) | payer OTHER, SELFPAY ==
[2019-02-19 09:44] VITALS: BMI 25.6
--- NOTE | 2019-09-26 12:23 | RAD_ITS ---
STUDY: X-RAY - PELVIS AND RIGHT HIP REASON FOR EXAM: Female, 49 years old. PAIN, NKI TECHNIQUE: 3 views of the pelvis and hip. COMPARISON: None. FINDINGS: Moderate amount of fecal material is seen in the colon. There are multiple calcified phleboliths. Normal bilateral iliac wings, sacroiliac joints and visualized sacrum. Normal bilateral superior and inferior pubic rami. Normal pubic symphysis. Normal bilateral ischial tuberosities. Normal visualized femoral head. Normal acetabulum. Normal hip joint. RAD/HIP, UNI W/ Pelvis 2-3 Views IMPRESSION: Moderate amount of fecal material is seen in the colon. No bony abnormality is seen. Electronically Signed: Leroy Aj, at 15:13 EDT , Service support ,
== END ==
PROVIDERS: PCP Internal Medicine; Referring Provider Internal Medicine; Visit Provider Internal Medicine
DX: M25.551 Pain in right hip (principal)
CPT/HCPCS: 73502

== ENCOUNTER → 2022-06-09 | Outpatient (CLI) | payer BC, SELFPAY ==
[2022-06-09 10:54] LABS: Cholesterol 225 mg/dL (200); High Density Lipoprotein 94 mg/dL; Triglycerides 99 mg/dL; Very Low Density Lipoprotein 20 mg/dL (5-40)
== END | disposition home or self-care (01) ==
LOC: LAB 08:39
PROVIDERS: PCP Internal Medicine; Referring Provider Internal Medicine; Visit Provider Internal Medicine
DX: E78.49 Other hyperlipidemia (principal)
CPT/HCPCS: 36415; 80061

== ENCOUNTER 2022-07-22 11:10 | Emergency (ER) | payer BC, SELFPAY ==
[2022-07-22 11:11] VITALS: BP 128/84; PULSE 92; RESP 18; TEMP 36.3; O2SAT 100; BMI 30.4
--- NOTE | 2022-07-22 12:09 | CT_ITS ---
STUDY: CT ABDOMEN AND PELVIS WITHOUT CONTRAST REASON FOR EXAM: Female, 51 years old. LLQ pain x2 days RADIATION DOSAGE (If Supplied By Facility): CTDIvol = ( 8.55 ) mGy, DLP = ( 414.23 ) mGycm TECHNIQUE: Transaxial images were obtained from the dome of the diaphragm to the symphysis pubis without oral contrast, and without intravenous contrast. Sagittal and coronal images were reconstructed. Individualized dose optimization techniques were used for this CT. COMPARISON: None. FINDINGS: The visualized lung bases are unremarkable. The visualized portions of the heart are within normal limits. Normal liver. There is non-visualization of the gallbladder, which may be secondary to either contraction or a prior cholecystectomy. Normal spleen. Normal pancreas. Normal bilateral adrenal glands. Normal right kidney. Normal left kidney. Normal visualized stomach. Normal small intestine. Retained stool noted in the colon with a few scattered colonic diverticula. At the junction of the distal descending and proximal sigmoid colon on axial images 117 through 121, and coronal recon images 51 through 55 there is pericolonic inflammatory stranding consistent with a focal acute diverticulitis. No perforation or abscess. There is non-visualization of the appendix. Normal abdominal aorta. Normal inferior vena cava. Normal retroperitoneum. Normal urinary bladder. Normal abdominal wall. Normal osseous structures. CT/Abdomen/Pelvis without Cont IMPRESSION: Acute focal diverticulitis suspected at the junction of the distal descending and proximal sigmoid colon, no perforation or abscess noted No suspicious solid organ abnormality No free intraperitoneal fluid, air, or suspicious adenopathy Electronically Signed: Claudio Gee MD at 13:02 EDT ,
[2022-07-22] MEDS: 0.9% Normal Saline 1,000 ML 1000 ML IV (12:20)
[2022-07-22 12:22] LABS: Mucous, Urine 0 SEEN /hpf (<or=2+); Red Blood Cells-Urine 0 SEEN /hpf (0-5)
[2022-07-22 12:32] LABS: Absolute Lymphocyte Count 2.73 X10^3/uL (0.83-4.51); Absolute Neutrophil Count 3.5 X10^3/uL (2.0-7.7); Basophil# 0.08 X10^3/uL; Basophil% 1.1 % (0-1); Eosinophil# 0.11 X10^3/uL; Eosinophils% 1.6 % (0-5); Hematocrit 42.2 % (37-47); Hemoglobin 13.7 g/dL (12.0-15.0); Lymphocyte # 2.73 X10^3/ul (0.83-4.51); Lymphocyte % 39.1 % (19-41); Mean Corp Hgb Conc 32.5 g/dL (32-36); Mean Corpuscular Hgb 29.4 pg (27.0-32.0); Mean Corpuscular Volume 90.6 fL (81-99); Mean Platelet Vol. 11.9 fl (6.2-12.0); Monocyte# 0.53 X10^3/uL; Monocyte% 7.6 % (0-10); NRBC Flagged by Analyzer 0 % (0-5); Neutrophil # 3.52 X10^3/uL (2.7-7.7); Neutrophil % 50.3 % (47-70); Platelet Count 322 K/mm3 (150-450); RBC Distribution Width CV 12.8 % (11.6-14.6); RBC Distribution Width SD 42.3 fl (35.1-43.9); Red Blood Count 4.66 M/mm3 (4.2-5.4)
[2022-07-22 12:34] LABS: Anion Gap 6 (5-15); BUN 9 mg/dL (7-18); BUN/Creat Ratio 10.6 RATIO (10-20); Calcium,Total 9.2 mg/dL (8.5-10.1); Chloride 106 mmol/L (98-107); Creatinine, Serum 0.85 mg/dL (0.55-1.02); EST Glomerular Filtration Rate 75 mL/min (>60); Est Glom Filt Rate - Afr Amer 91 mL/min (>60); Estimated Creatinine Clearance 62.62 ml/min; Glucose 103 mg/dL (74-106); Potassium 3.9 mmol/L (3.5-5.1); Sodium Level 139 mmol/L (136-145)
[2022-07-22 12:41] LABS: Color, Urine Yellow (Yellow); Glucose, Dipstick Normal (Normal); Ketone-Dipstick Negative (Negative); Leukocyte Esterase-Dipstick Negative /ul (Negative); Nitrite-Dipstick Negative (Negative); Occult Blood-Urine Negative /ul (Negative); Protein-Dipstick Negative (Negative); Urine Bilirubin Dipstick Negative (Negative); Urine Clarity Clear (Clear); Urine Urobilinogen Normal (Normal)
--- NOTE | 2022-07-22 13:02 | ED.VIS.GI ---
HPI HPI - GI History of Present Illness Chief Complaint: Abd Pain Informant: patient Narrative Narrative: Worsening left lower quadrant abdominal pain since yesterday. No fevers. Had a bowel movement during pain nonbloody. Abnormal bowel movements at 6 normal for the patient had diarrhea Sunday. Multiple colonoscopies in the past followed by Dr. Zimmerman. She states 1 episode was told she had ischemic colitis findings. She is treated for ulcerative colitis transiently. No continue treatment for this. Denies urinary symptoms. Denies any diagnosis of diverticulitis or kidney stones. Prior similar symptoms: No PFSH PFSH Medical History Acute pharyngitis, unspecified Acute pharyngitis, unspecified Contact dermatitis Osteoporosis Shoulder pain Home Medications estradiol 4 mcg vaginal insert 0.5 mcg TRANSDERM. QWEEK HYPOGONADITROPISM 02/04/18 [History Last Taken 02/17/18] prednisone 10 mg tablet 10 mg PO DAILY #30 tabs 09/02/20 [Rx Last Taken Unknown] amoxicillin 875 mg-potassium clavulanate 125 mg tablet 875 mg PO Q12H #20 TABLETS 07/22/22 [Rx Last Taken Unknown] Allergy/AdvReac Type Severity Reaction Status Date / Time meperidine [From Demerol] AdvReac Vomiting Verified 07/22/22 11:12 Family History Other Diabetes Hypertension Kidney disease Leukemia Surgical History H/O oophorectomy History of cholecystectomy History of hysterectomy Hx of appendectomy Social History Smoking Status: Never smoker alcohol intake: current alcohol intake frequency: holidays/special occasions only ROS ROS ED Constitutional Constitutional ED: Denies chills, fever(s) or sweats Eyes Eyes: Denies change in vision ENT ENT ED: Denies dysphagia or sore throat Cardiovascular Cardiovascular: Denies chest pain, leg edema, palpitations or racing heartbeat Respiratory/Chest Respiratory/Chest: Denies cough, dyspnea or dyspnea on exertion Gastrointestinal Gastrointestinal: Reports abdominal pain; Denies diarrhea, nausea or vomiting Genitourinary Genitourinary ED: Denies dysuria, hematuria or urinary frequency Musculoskeletal Musculoskeletal: Denies back pain, extremity pain or neck pain Integumentary Denies rash or wounds Neurologic Neurologic: Denies headache(s), paresthesias or weakness EXAM Physical Exam Const Vital Signs: 07/22/22 11:11 Temperature 97.4 F L Temperature Source Temporal Pulse Rate 92 Respiratory Rate 18 Blood Pressure 128/84 H Blood Pressure Mean 98 Pulse Ox 100 Oxygen Delivery Method Room Air Positive well nourished and well developed General Appearance ED: well developed and NAD HEENT Reports moist mucous membranes normocephalic and atraumatic Eyes PERRL, EOMs intact bilaterally and conjunctivae normal General Eye ED: Yes normal appearance of both eyes Neck no lymphadenopathy and supple General: Negative for tenderness Chest Wall Chest: Negative for tenderness Resp normal respiratory effort and normal air movement Effort and Inspection: symmetric chest movement; Negative for respiratory distress Cardio regular rate, regular rhythm and no murmurs Peripheral Pulses: pulses 2+ throughout GI normal to inspection, nondistended, normoactive bowel sounds GI Narrative: Left lower quadrant tenderness, no rash. Negative Wu's or McBurney's tenderness Palpation: Negative for guarding or rebound tenderness present Back/Spine no CVA tenderness and no thoracic nor lumbar tenderness Extremity normal to inspection General Extremety ED: Negative for edema or tenderness General Extremity: Negative for edema Neuro oriented x3 and no sensory deficits noted Sensorium / Orientation: awake and alert Skin no rashes or lesions noted and no wounds MDM MDM MDM Narrative Medical decision making narrative: Interventions / MDM: Differential diagnosis: Diverticulitis, Crohn's, ulcerative colitis Diagnosis considered but do not suspect: Low clinical concern for ischemic colitis with no pain out of proportion. Shingles, however no current rash. My EKG interpretation: N/A Imaging independently reviewed and interpreted by myself: CT abdomen pelvis: Uncomplicated diverticulitis distal descending colon proximal sigmoid. Also read by radiology. No abscess, no perforations. External documents reviewed: N/A Test considered but not ordered:N/A ED course: Patient declines any pain medicine she is given fluids, labs stable white count 7. Urine for infection. CT scan uncomplicated diverticulitis. She started on Augmentin. She will use Tylenol as needed at home. Return precautions discussed. All questions were answered. 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 Re-evaluation: stable Disposition discussed with patient/family/significant other: Patient and significant other Case discussed with consulting clinician: N/A Lab Data Labs: Laboratory Results - last 24 hr 07/22/22 07/22/22 07/22/22 11:28 11:28 11:28 WBC 7.0 RBC 4.66 Hgb 13.7 Hct 42.2 MCV 90.6 MCH 29.4 MCHC 32.5 RDW Std Deviation 42.3 RDW Coeff of [place] 12.8 Plt Count 322 MPV 11.9 Immature Gran % (Auto) 0.300 Neut % (Auto) 50.3 Lymph % (Auto) 39.1 [place] % (Auto) 7.6 Eos % (Auto) 1.6 Baso % (Auto) 1.1 H Absolute Neuts (auto) 3.5 Absolute Lymphs (auto) 2.73 Nucleated RBC % 0 Sodium 139 Potassium 3.9 Chloride 106 Carbon Dioxide 27.0 Anion Gap 6 BUN 9 Creatinine 0.85 Estim Creat Clear Calc 62.62 Est GFR (MDRD) Af Amer 91 Est GFR (MDRD) Non-Af 75 BUN/Creatinine Ratio 10.6 Glucose 103 Calcium 9.2 Urine Color Yellow Urine Clarity Clear Urine pH 7.0 Ur Specific [place] 1.010 Urine Protein Negative Urine Glucose (UA) Normal Urine Ketones Negative Urine Occult Blood Negative Urine Nitrite Negative Urine Bilirubin Negative Urine Urobilinogen Normal Ur Leukocyte Esterase Negative Urine RBC 0 SEEN Urine WBC 0-5 SEEN Ur Squamous Epith Cells 5-10 SEEN Urine Bacteria 1+ Urine Mucus 0 SEEN Radiography Diagnostic Testing: Clinical Impression(s) from Imaging Studies Abdomen/Pelvis CT 07/22/22 12:09 IMPRESSION: Acute focal diverticulitis suspected at the junction of the distal descending and proximal sigmoid colon, no perforation or abscess noted No suspicious solid organ abnormality No free intraperitoneal fluid, air, or suspicious adenopathy Electronically Signed: Claudio Gee MD at 13:02 EDT Reading Location ID and State: [facility] / MD , Service support , Discharge Plan Triage Chief Complaint: Abd Pain ED Provider: Ochoa Ibrahim Dx/Rx/DC Orders Clinical Impression: Acute diverticulitis, Abdominal pain, LLQ Instructions: ED Diverticulitis Prescriptions: New amoxicillin-pot clavulanate [amoxicillin-pot clavulanate] 875-125 mg tablet 875 mg PO Q12H Qty: 20 0RF No Action estradiol 4 mcg insert 0.5 mcg TRANSDERM. QWEEK prednisone 10 mg tablet 10 mg PO DAILY Qty: 30 0RF Rx Instructions: 4 tablets daily for 3 days, then 3 tablets daily for 3 days, then 2 tablets daily for 3 days, then 1 tablet daily for 3 days Primary Care Provider: Renu Mejia Referrals: Renu Mejia DO [Primary Care Provider] - 1-2 Weeks Activity Restrictions/Additional Instructions: Acute sigmoid diverticulitis no abscess no perforations. Take and finish antibiotics as prescribed Tylenol as needed. Return if worsening symptoms. Follow-up with your doctor for reevaluation. Will need follow-up with Dr. Zimmerman next 2 to 3 months to repeat colonoscopy. Disposition Disposition: Home, Self Care Discharge Date/Time: 07/22/22 13:42
[2022-07-22 13:06] LABS: Squamous Epithelial Cells - UA 5-10 SEEN /hpf (5-10); White Blood Cells 0-5 SEEN /hpf (0-5)
[2022-07-22 13:07] LABS: Bacteria 1+ /hpf (None Seen)
[2022-07-22] MEDS: Amox/Clavulanate 875 MG Tablet PO (13:38)
== END 2022-07-22 13:42 | disposition home or self-care (01) ==
PROVIDERS: Emergency Provider Emergency Medicine; PCP Internal Medicine; Visit Provider Emergency Medicine
DX: K57.32 Diverticulitis of large intestine without perforation or abscess without bleeding (principal); K51.90 Ulcerative colitis, unspecified, without complications; B02.9 Zoster without complications; R10.32 Left lower quadrant pain
CPT/HCPCS: 74176; 80048; 81001; 85025; 96360; 99284; J7030; A4216